=== PATIENT | male | born 1940 | race Caucasian/White ===

== ENCOUNTER 2016-10-11 09:57 | Inpatient (IN) | payer MEDICARE ==
[2016-10-11] MEDS ORDERED: IPRATROPIUM-ALBUTEROL 3 ML NEB INHALATION STA (10:02)
--- NOTE | 2016-10-11 10:07 | ED ---
General Adult HPI - General Stated complaint: Difficulty Breathing Time Seen by Provider: 10/11/16 10:00 Source: RN notes reviewed - History of Present Illness Initial comments: This is a 75-year-old male who presents emergency Department complaining of shortness of breath since last night. Patient states he barely slept all his eye because of difficulty breathing. Patient states he got worse throughout the night as well. Patient denies any fever or chills. Patient denies chest pain or palpitation. Patient denies any recent cough. Patient denies smoking. Patient denies any headache patient denies numbness weakness. Patient denies any lightheadedness dizziness or near syncopal episode. Patient denies any fluid chelation legs or calf pain. Patient denies any abdominal pain patient denies nausea vomiting diarrhea. Patient has a history of heart failure and diabetes. - Related Data Home Medications Medication Instructions Recorded Confirmed hydrALAZINE HCL [Apresoline] 50 mg PO TID 04/26/15 10/11/16 Insulin Glargine [Lantus] 35 unit SQ HS 01/24/16 10/11/16 Atorvastatin [Lipitor] 20 mg PO HS 08/28/16 10/11/16 [id number]-[id number]-Codeine 1 cap PO BID PRN 08/28/16 10/11/16 [Fiorinal w/Cod 18-782-35-30MG] Cholecalciferol [Vitamin D3] 1,000 unit PO DAILY 08/28/16 10/11/16 Metoprolol Tartrate [Lopressor] 50 mg PO BID 08/28/16 10/11/16 Albuterol Nebulized [Ventolin 2.5 mg INHALATION RT-QID 10/11/16 10/11/16 Nebulized] Ferrous Sulfate [Feosol] 325 mg PO W/SUPPER 10/11/16 10/11/16 LORazepam [Ativan] 0.5 mg PO HS PRN 10/11/16 10/11/16 Warfarin [Coumadin] 2.5 mg PO SUMOWETHFRSA 10/11/16 10/11/16 Warfarin [Coumadin] 5 mg PO TU 10/11/16 10/11/16 Previous Rx's Medication Instructions Recorded Gabapentin [Neurontin] 100 mg PO TID cap 09/05/16 Insulin Aspart [NovoLOG] 9 unit SQ AC-TID #0 09/05/16 Pantoprazole [Protonix] 40 mg PO AC-BRKFST tablet. 09/05/16 oxyCODONE HCL/ACETAMINOPHEN 1 tab PO Q6HR PRN #20 tab 09/05/16 [Percocet 5-325 mg] Allergies Allergy/AdvReac Type Severity Reaction Status Date / Time Penicillins Allergy Rash/Hives Verified 10/11/16 11:32 Review of Systems ROS Statement: Those systems with pertinent positive or pertinent negative responses have been documented in the HPI. ROS Other: All systems not noted in ROS Statement are negative. Past Medical History Past Medical History: Cancer, Heart Failure, CVA/TIA, Diabetes Mellitus, Hyperlipidemia, Hypertension, Osteoarthritis (OA) Additional Past Medical History / Comment(s): PROSTATE CANCER, EDEMA RIGHT LEG, USES A WHEELCHAIR History of Any Multi-Drug Resistant Organisms: None Reported Past Surgical History: Appendectomy, Back Surgery Additional Past Surgical History / Comment(s): kidney biopsy, CATARACT RIGHT EYE Past Anesthesia/Blood Transfusion Reactions: No Reported Reaction Past Psychological History: No Psychological Hx Reported Smoking Status: Former smoker Past Alcohol Use History: None Reported Past Drug Use History: None Reported - Past Family History Mother Family Medical History: Diabetes Mellitus Father Family Medical History: Diabetes Mellitus General Exam - General Exam Comments Initial Comments: GENERAL: Patient is well-developed and well-nourished. Patient is nontoxic and well- hydrated and is in no acute distress. ENT: Neck is soft and supple. No significant lymphadenopathy is noted. Oropharynx is clear. Moist mucous membranes. Neck has full range of motion without eliciting any pain. EYES: The sclera were anicteric and conjunctiva were pink and moist. Extraocular movements were intact and pupils were equal round and reactive to light. Eyelids were unremarkable. PULMONARY: Patient has expiratory wheezing and significantly diminished breath sounds. CARDIOVASCULAR: There is a regular rate and rhythm without any murmurs gallops or rubs. ABDOMEN: Soft and nontender with normal bowel sounds. No palpable organomegaly was noted. There is no palpable pulsatile mass. SKIN: Skin is clear with no lesions or rashes and otherwise unremarkable. NEUROLOGIC: Patient is alert and oriented x3. Cranial nerves II through XII are grossly intact. Motor and sensory are also intact. Normal speech, volume and content. Symmetrical smile. MUSCULOSKELETAL: Normal extremities with adequate strength and full range of motion. No lower extremity swelling or edema. No calf tenderness. LYMPHATICS: No significant lymphadenopathy is noted PSYCHIATRIC: Normal psychiatric evaluation. Course Vital Signs 10/11/16 10/11/16 10/11/16 09:59 10:09 11:01 Temperature 98.1 F Pulse Rate 70 72 Respiratory 22 22 Rate Blood Pressure 228/94 O2 Sat by Pulse 100 Oximetry 10/11/16 10/11/16 10/11/16 11:21 11:43 12:08 Temperature Pulse Rate 68 68 69 Respiratory 18 16 Rate Blood Pressure 219/88 204/89 O2 Sat by Pulse 100 95 Oximetry 10/11/16 10/11/16 12:40 12:44 Temperature Pulse Rate 67 Respiratory 22 Rate Blood Pressure 188/82 O2 Sat by Pulse 93 L Oximetry Medical Decision Making - Medical Decision Making EKG shows atrial fibrillation at 66 bpm QRS is 98 QT interval is 444 QTC is 465. Patient's EKG is compared to an old EKG I see no acute abnormalities. Chest x-ray shows acute pulmonary edema. She was placed on BiPAP as soon as he arrived. Gave the patient Lasix nitro paste and Vasotec. I spoke with Dr. Wright. I wrote admitting orders to continue the Lasix and nitro paste on the floor. I consult cardiology. After patient received his medications I reevaluated him he did state he was feeling better at this time. - Lab Data Result diagrams: 10/11/16 11:37 10/11/16 11:37 Lab Results 10/11/16 10/11/16 10/11/16 Range/Units 11:37 11:37 11:37 WBC 5.8 (3.8-10.6) k/uL RBC 3.44 L (4.30-5.90) m/uL Hgb 9.8 L (13.0-17.5) gm/dL Hct 33.1 L (39.0-53.0) % MCV 96.1 (80.0-100.0) fL MCH 28.5 (25.0-35.0) pg MCHC 29.7 L (31.0-37.0) g/dL RDW 18.0 H (11.5-15.5) % Plt Count 231 (150-450) k/uL Neutrophils % 81 % Lymphocytes % 13 % Monocytes % 4 % Eosinophils % 1 % Basophils % 0 % Neutrophils # 4.7 (1.3-7.7) k/uL Lymphocytes # 0.7 L (1.0-4.8) k/uL Monocytes # 0.2 (0-1.0) k/uL Eosinophils # 0.0 (0-0.7) k/uL Basophils # 0.0 (0-0.2) k/uL Hypochromasia Marked Poikilocytosis Slight Anisocytosis Slight Macrocytosis Slight PT (9.0-12.0) sec INR (<1.1) APTT (22.0-30.0) sec Sodium 148 H (137-145) mmol/L Potassium 4.4 (3.5-5.1) mmol/L Chloride 111 H (98-107) mmol/L Carbon Dioxide 23 (22-30) mmol/L Anion Gap 14 mmol/L BUN 27 H (9-20) mg/dL Creatinine 1.31 H (0.66-1.25) mg/dL Est GFR (MDRD) Af Amer >60 (>60 ml/min/1.73 sqM) Est GFR (MDRD) Non-Af 53 (>60 ml/min/1.73 sqM) Glucose 181 H (74-99) mg/dL Calcium 8.7 (8.4-10.2) mg/dL Magnesium 1.8 (1.6-2.3) mg/dL Total Bilirubin 1.8 H (0.2-1.3) mg/dL AST 19 (17-59) U/L ALT 28 (21-72) U/L Alkaline Phosphatase 144 H (38-126) U/L Total Creatine Kinase 42 L (55-170) U/L CK-MB (CK-2) 2.2 (0.0-2.4) ng/mL CK-MB (CK-2) Rel Index 5.2 Troponin I 0.018 (0.000-0.034) ng/mL NT-Pro-B Natriuret Pep pg/mL Total Protein 6.6 (6.3-8.2) g/dL Albumin 3.2 L (3.5-5.0) g/dL 10/11/16 10/11/16 Range/Units 11:37 11:37 WBC (3.8-10.6) k/uL RBC (4.30-5.90) m/uL Hgb (13.0-17.5) gm/dL Hct (39.0-53.0) % MCV (80.0-100.0) fL MCH (25.0-35.0) pg MCHC (31.0-37.0) g/dL RDW (11.5-15.5) % Plt Count (150-450) k/uL Neutrophils % % Lymphocytes % % Monocytes % % Eosinophils % % Basophils % % Neutrophils # (1.3-7.7) k/uL Lymphocytes # (1.0-4.8) k/uL Monocytes # (0-1.0) k/uL Eosinophils # (0-0.7) k/uL Basophils # (0-0.2) k/uL Hypochromasia Poikilocytosis Anisocytosis Macrocytosis PT 34.6 H (9.0-12.0) sec INR 3.6 (<1.1) APTT 35.3 H (22.0-30.0) sec Sodium (137-145) mmol/L Potassium (3.5-5.1) mmol/L Chloride (98-107) mmol/L Carbon Dioxide (22-30) mmol/L Anion Gap mmol/L BUN (9-20) mg/dL Creatinine (0.66-1.25) mg/dL Est GFR (MDRD) Af Amer (>60 ml/min/1.73 sqM) Est GFR (MDRD) Non-Af (>60 ml/min/1.73 sqM) Glucose (74-99) mg/dL Calcium (8.4-10.2) mg/dL Magnesium (1.6-2.3) mg/dL Total Bilirubin (0.2-1.3) mg/dL AST (17-59) U/L ALT (21-72) U/L Alkaline Phosphatase (38-126) U/L Total Creatine Kinase (55-170) U/L CK-MB (CK-2) (0.0-2.4) ng/mL CK-MB (CK-2) Rel Index Troponin I (0.000-0.034) ng/mL NT-Pro-B Natriuret Pep 84707 pg/mL Total Protein (6.3-8.2) g/dL Albumin (3.5-5.0) g/dL Critical Care Time Critical Care Time: Yes Total Critical Care Time: 35 Disposition Clinical Impression: Acute pulmonary edema Disposition: ADMITTED IP TO THIS HOSP Time of Disposition: 13:04
[2016-10-11] MEDS ORDERED: ENALAPRILAT 1.25 MG/ML 1 ML VIAL IVP STA (10:09)
[2016-10-11] MEDS ORDERED: NITROGLYCERIN OINT 1 INCH/GM PACKET TOPICAL STA (10:22)
[2016-10-11 11:56] LABS: Anisocytosis Slight; Basophils % (A) 0 %; CH 27.7; Eosinophils % (A) 1 %; HCT 33.1 % (39.0-53.0); HGB 9.8 gm/dL (13.0-17.5); Hypochromasia Marked; Luc # (Auto) 0.07; Luc % (Auto) 1; Lymphocytes # (A) 0.7 k/uL (1.0-4.8); Lymphocytes % (A) 13 %; MCH 28.5 pg (25.0-35.0); MCHC 29.7 g/dL (31.0-37.0); MCV 96.1 fL (80.0-100.0); Macrocytosis Slight; Mean Platelet Volume 7.8; Monocytes # (A) 0.2 k/uL (0-1.0); Monocytes % (A) 4 %; Neutrophils # (A) 4.7 k/uL (1.3-7.7); Neutrophils % (A) 81 %; Poikilocytosis Slight; RBC 3.44 m/uL (4.30-5.90); WBC 5.8 k/uL (3.8-10.6); WBC (Perox) 5.92
[2016-10-11 12:06] LABS: INR 3.6 (<1.1); Partial Thromboplastin Time 35.3 sec (22.0-30.0); Prothrombin Time 34.6 sec (9.0-12.0)
[2016-10-11 12:11] LABS: ALT 28 U/L (21-72); AST 19 U/L (17-59); Alkaline Phosphatase 144 U/L (38-126); Anion Gap 14 mmol/L; Blood Urea Nitrogen 27 mg/dL (9-20); Calcium 8.7 mg/dL (8.4-10.2); Carbon Dioxide 23 mmol/L (22-30); Chloride 111 mmol/L (98-107); Glucose 181 mg/dL (74-99); Magnesium 1.8 mg/dL (1.6-2.3); Non-African American GFR(MDRD) 53 (>60 ml/min/1.73 sqM); Potassium 4.4 mmol/L (3.5-5.1); Sodium 148 mmol/L (137-145); Total Bilirubin 1.8 mg/dL (0.2-1.3); Total Protein 6.6 g/dL (6.3-8.2)
[2016-10-11] MEDS ORDERED: GABAPENTIN 100 MG CAP PO STA (12:20)
--- NOTE | 2016-10-11 12:20 | XR ---
EXAMINATION TYPE: XR chest 1V portable DATE OF EXAM: 10/11/2016 12:13 PM HISTORY: Difficulty breathing. REFERENCE: Previous study dated 08/30/2016. FINDINGS: Heart is mildly enlarged. There is vascular redistribution and mild interstitial change. Pl eural spaces appear clear. IMPRESSION: FINDINGS MOST CONSISTENT WITH MILD CONGESTIVE HEART FAILURE AND PULMONARY EDEMA.
[2016-10-11 12:26] LABS: Creatine Kinase MB 2.2 ng/mL (0.0-2.4); Troponin I 0.018 ng/mL (0.000-0.034)
[2016-10-11] MEDS ORDERED: FUROSEMIDE 10 MG/ML 10 ML VIAL IV STA (12:54)
[2016-10-11] MEDS ORDERED: ALPRAZolam 0.25 MG TAB PO STA (16:04)
[2016-10-11] MEDS: FUROSEMIDE 10 MG/ML 4 ML VIAL IV SCH ×2 (16:16→23:15)
[2016-10-11 16:56] LABS: Glucose,Whole Blood 183 mg/dL (75-99)
[2016-10-11] MEDS: INSULIN LISPRO (humaLOG) 300 UNIT/3 ML VIAL SQ SCH ×2 (17:14→22:35)
[2016-10-11] MEDS: NITROGLYCERIN OINT 1 INCH/GM PACKET TOPICAL SCH ×2 (17:17→22:35)
[2016-10-11 21:32] LABS: Glucose,Whole Blood 151 mg/dL (75-99)
[2016-10-11] MEDS ORDERED: [UNRECOGNIZED DRUG - OTHER] PO PRN (21:32)
[2016-10-11] MEDS: GABAPENTIN 100 MG CAP PO SCH (22:35)
[2016-10-11] MEDS: ATORVASTATIN 20 MG TAB PO SCH (22:35)
[2016-10-11] MEDS: METOPROLOL TARTRATE 50 MG TAB PO SCH (22:35)
[2016-10-11] MEDS: hydrALAZINE HCL 50 MG TAB PO SCH (22:35)
[2016-10-12 00:17] LABS: Hemoglobin A1C 5.8 % (4.2-6.1)
[2016-10-12 06:11] LABS: Glucose,Whole Blood 136 mg/dL (75-99)
[2016-10-12 06:49] LABS: INR 3.2 (<1.1); Prothrombin Time 31.4 sec (9.0-12.0)
[2016-10-12] MEDS: PANTOPRAZOLE 40 MG TABLET PO SCH (06:54)
[2016-10-12] MEDS: INSULIN GLARGINE 100 UNIT/ML 10 ML VIAL SQ SCH ×2 (06:54→21:40)
[2016-10-12] MEDS: INSULIN LISPRO (humaLOG) 300 UNIT/3 ML VIAL SQ SCH ×7 (06:54→21:41)
[2016-10-12] MEDS: oxyCODONE-APAP 5-325MG 1 EACH TAB PO PRN (08:20)
[2016-10-12] MEDS: GABAPENTIN 100 MG CAP PO SCH ×3 (08:21→21:40)
[2016-10-12] MEDS: NITROGLYCERIN OINT 1 INCH/GM PACKET TOPICAL SCH ×4 (08:22→21:41)
[2016-10-12] MEDS: METOPROLOL TARTRATE 50 MG TAB PO SCH ×2 (08:22→21:40)
[2016-10-12] MEDS: hydrALAZINE HCL 50 MG TAB PO SCH ×3 (08:22→21:40)
[2016-10-12] MEDS: FUROSEMIDE 10 MG/ML 4 ML VIAL IV SCH ×2 (08:22→15:21)
[2016-10-12] MEDS: ALBUTEROL NEBULIZED 2.5 MG/3 ML INHALATION SCH ×4 (08:52→20:50)
[2016-10-12 10:52] VITALS: BMI 38.9
[2016-10-12 12:10] LABS: Glucose,Whole Blood 151 mg/dL (75-99)
[2016-10-12] MEDS: CHOLECALCIFEROL 1,000 UNIT TAB PO SCH (12:23)
--- NOTE | 2016-10-12 12:24 | HP ---
DATE OF ADMISSION: 10/11/2016 CHIEF COMPLAINT: Shortness of breath. HISTORY OF PRESENT ILLNESS: This 75 -year-old gentleman with past medical history of CHF, CVA, TIA, diabetes mellitus, hypertension, hyperlipidemia, GERD, history of prostate cancer, being followed by Dr. Fitzpatrick in the outpatient setting complaining of shortness of breath. The patient had shortness of breath for the past several days including last night. The patient unable to sleep. The patient unable to lie down flat. The patient orthopnea, because of increasing shortness of breath and other difficulties, the patient came to [facility] and was admitted to the hospital for further evaluation and treatment. A chest x-ray was done at the time of admission showed congestive heart failure and pulmonary edema. The patient was started on IV Lasix and admitted for further evaluation and treatment. There is no history of fever, rigors or chills. No history of headache, loss of consciousness or seizures. The previous 2D echo, which was done on 09/05/2016 showed ejection fraction 55% to 60% and moderate dilated LA, mild aortic regurgitation, mild aortic sclerosis also. No chest pain or palpitation. No fever. The patient was also admitted recently with cellulitis of the right lower extremity as well as well as skin necrosis and other multiple medical issues also. PAST MEDICAL HISTORY: history of CHF, history of CVA, TIA, diabetes mellitus type 2, hypertension, hyperlipidemia, DJD. Medications prior to admission include home medications are: 1. Oxycodone one tablet q6h p.r.n. 2. Apresoline 50 mg t.i.d. 3. Coumadin 5 mg p.o. 4. 2.5 mg Sunday, Sunday, Sunday, , Sunday, Sunday. 5. Protonix 40 mg a.c. breakfast. 6. Lopressor 50 mg p.o. b.i.d. 7. Ativan 0.5 mg q.h.s. p.r.n. 8. Lantus 35 units subcu q.h.s. 9. Novolog subcu a.c. t.i.d. 10. Neurontin 100 mg p.o. t.i.d. 11. Iron sulfate 325 mg with supper. 12. Vitamin D3 1000 daily. 13.Codeine codeine caffeine 1 capsule b.i.d. p.r.n. 14. Lipitor 20 mg at bedtime. 15. Ventolin HFA 2.5 q.i.d. ALLERGIES: PENICILLIN. FAMILY HISTORY: History of diabetes in the family. SOCIAL HISTORY: Previous history of smoking. No history of alcohol intake. REVIEW OF SYSTEMS: ENT: Diminished vision. Diminished hearing. CARDIOVASCULAR: As mentioned earlier. RESPIRATORY: As mentioned earlier. GI: No nausea or vomiting. : No dysuria. Nervous system: No focal deficits. ALLERGY/IMMUNOLOGY: no asthma or hayfever. MUSCULOSKELETAL: As mentioned earlier. HEMATOLOGY/ONCOLOGY: No history of anemia. ENDOCRINE: As mentioned earlier. RHEUMATOLOGY: Negative. DERMATOLOGY: As mentioned earlier. PSYCHIATRY: As mentioned earlier. PHYSICAL EXAMINATION: GENERAL: The patient is alert and oriented times three. VITAL SIGNS: Pulse is 66, blood pressure 179/76, respiratory rate 18, temperature normal, pulse ox 98% on 4 liters. HEENT: Conjunctivae normal. Oral mucosa moist. NECK: No jugular venous distention. No carotid bruit. No lymph node enlargement. CARDIOVASCULAR: S1, S2 muffled. RESPIRATORY: Breath sounds diminished at the bases. Bilateral scattered rhonchi and crackles. ABDOMEN: Soft, obese, nontender. No mass palpable. Legs: No edema. No swelling. Thickened skin and cellulitis also present. CENTRAL NERVOUS SYSTEM: Higher functions as mentioned earlier. Moves all four limbs. No focal motor or sensory deficits. LYMPHATICS: No lymph nodes palpable in the neck, axillae or groin. SKIN: No ulcer, rash or bleeding. LABS: At this time shows WBC 5.6, hemoglobin 9.8. Otherwise INR 3.6. Sodium 148, creatinine 1.31, glucose noted. ASSESSMENT: 1. Congestive heart failure exacerbation, acute on chronic diastolic dysfunction, ejection fraction 55% to 60%. 2. Chronic kidney disease, stage. 3. Coumadin coagulopathy. 4. Anemia, normocytic, anemia of chronic disease. 5. Mild hypoalbuminemia. 6. Obesity, with a body mass index of 42.4. 7. History of congestive heart failure. 8. History of cerebrovascular accident and transient ischemic attack. 9. Type 2 diabetes mellitus. 10. Hypertension. 11. Hyperlipidemia. 12. History of degenerative joint disease. 13. History of prostate cancer. 14. Chronic hypoxic respiratory failure, on home oxygen 2 liters nasal cannula. 15. Appendectomy. 16. Back surgery. 17. Degenerative joint disease. 18. Remote history of nicotine dependence. 19. FULL CODE. RECOMMENDATIONS AND DISCUSSION: In this 75-year-old gentleman who presented with multiple complex medical issues, we will monitor the patient closely, continue the current medications, continue with symptomatic treatment. We will initiate Lasix 40 mg IV q.8. Monitor fluid and electrolytes balance closely. 2-D echo has been noted. Cardiology has been consulted. Resume the home medications. Repeat labs will be ordered. Prognosis is guarded because of multiple complex medical issues. No added salt to be continued. Discussed with the patient, understands and agrees. Medications reconciliation also performed. We will hold the Coumadin because of the Coumadin coagulopathy at this time and further recommendations to follow. STEPHANIE
[2016-10-12] MEDS: ALPRAZolam 0.25 MG TAB PO PRN (15:21)
[2016-10-12] MEDS: FERROUS SULFATE 325 MG TAB PO SCH (15:22)
[2016-10-12 17:05] LABS: Glucose,Whole Blood 136 mg/dL (75-99)
[2016-10-12 20:31] LABS: Glucose,Whole Blood 150 mg/dL (75-99)
[2016-10-12] MEDS: ATORVASTATIN 20 MG TAB PO SCH (21:40)
[2016-10-12] MEDS: LORazepam 0.5 MG TAB PO PRN (23:43)
[2016-10-13] MEDS: FUROSEMIDE 10 MG/ML 4 ML VIAL IV SCH ×2 (00:09→09:29)
[2016-10-13 06:12] LABS: Glucose,Whole Blood 204 mg/dL (75-99)
[2016-10-13 06:27] LABS: INR 2.7 (<1.1); Prothrombin Time 26.5 sec (9.0-12.0)
[2016-10-13 06:33] LABS: Anisocytosis Slight; Basophils % (A) 0 %; CH 27.6; CHCM 27.8; Eosinophils # (A) 0.2 k/uL (0-0.7); Eosinophils % (A) 2 %; HCT 31.7 % (39.0-53.0); HDW 3.24; HGB 9.1 gm/dL (13.0-17.5); Hypochromasia Marked; Luc # (Auto) 0.12; Luc % (Auto) 2; Lymphocytes # (A) 1.1 k/uL (1.0-4.8); Lymphocytes % (A) 17 %; MCH 28.6 pg (25.0-35.0); MCHC 28.6 g/dL (31.0-37.0); Macrocytosis Moderate; Mean Platelet Volume 6.9; Monocytes # (A) 0.4 k/uL (0-1.0); Monocytes % (A) 6 %; Neutrophils # (A) 4.7 k/uL (1.3-7.7); Neutrophils % (A) 73 %; RBC 3.17 m/uL (4.30-5.90); RDW 18.4 % (11.5-15.5); WBC 6.4 k/uL (3.8-10.6); WBC (Perox) 6.78
[2016-10-13 06:37] LABS: Calcium 8.7 mg/dL (8.4-10.2); Potassium 4.5 mmol/L (3.5-5.1)
[2016-10-13] MEDS: PANTOPRAZOLE 40 MG TABLET PO SCH (06:45)
[2016-10-13] MEDS: INSULIN LISPRO (humaLOG) 300 UNIT/3 ML VIAL SQ SCH ×7 (06:46→21:08)
[2016-10-13] MEDS: ALBUTEROL NEBULIZED 2.5 MG/3 ML INHALATION SCH ×4 (07:57→20:43)
[2016-10-13] MEDS: GABAPENTIN 100 MG CAP PO SCH ×3 (09:28→21:08)
[2016-10-13] MEDS: hydrALAZINE HCL 50 MG TAB PO SCH ×3 (09:28→21:09)
[2016-10-13] MEDS: METOPROLOL TARTRATE 50 MG TAB PO SCH ×2 (09:29→21:09)
[2016-10-13] MEDS: NITROGLYCERIN OINT 1 INCH/GM PACKET TOPICAL SCH ×4 (09:29→21:09)
[2016-10-13 10:24] LABS: Glucose,Whole Blood 189 mg/dL (75-99)
[2016-10-13] MEDS: ALPRAZolam 0.25 MG TAB PO PRN (10:25)
--- NOTE | 2016-10-13 10:32 | PN ---
DATE OF SERVICE: 10/12/2016 This 75-year-old gentleman who was admitted with CHF acute exacerbation is being closely monitored at this time. No chest pain or palpitation. No fever. Breathing is slightly easier according to him. Cardiology is following the patient. On exam, alert and oriented x3. Pulse 64, blood pressure 109/47, respirations 18, temperature 97.7, pulse ox 97% on 3 L. HEENT: Conjunctivae normal. NECK: No jugular venous distention. CARDIOVASCULAR: S1 and S2, muffled. RESPIRATORY: Breath sounds diminished at the bases. Bilateral scattered rhonchi and crackles. ABDOMEN: Soft, nontender. LEGS: No edema, no swelling. NERVOUS SYSTEM: No focal deficits. Labs are INR 3.2. Hemoglobin is 9.8. Glucose 151. ASSESSMENT: 1. Congestive heart failure acute exacerbation with acute on chronic diastolic dysfunction, ejection 55% to 60%. 2. Chronic kidney disease, stage II. 3. Coumadin coagulopathy. 4. Anemia of normocytic anemia of chronic disease. 5. Mild hypoalbuminemia. 6. Obesity, body mass index 42.4. 7. History of congestive heart failure. 8. History of cerebrovascular accident, transient ischemic attack. 9. Diabetes mellitus type 2. 10. Hypertension. 11. Hyperlipidemia. 12. History of degenerative joint disease. 13. History of prostate cancer. 14. Chronic hypoxic respiratory failure, on home oxygen nasal cannula. 15. Appendectomy. 16. History of back surgery. 17. History of degenerative joint disease. 18. Remote history of nicotine dependence. 19. FULL CODE. RECOMMENDATIONS AND DISCUSSION: Recommend to continue current medications. Continue with monitoring and symptomatic treatment. Otherwise, continue with diuretics. Will monitor creatinine and labs closely. Guarded prognosis because of multiple complex medical issues. Further recommendations to follow.
[2016-10-13 11:47] LABS: Glucose,Whole Blood 191 mg/dL (75-99)
[2016-10-13] MEDS: CHOLECALCIFEROL 1,000 UNIT TAB PO SCH (13:24)
[2016-10-13] MEDS: oxyCODONE-APAP 5-325MG 1 EACH TAB PO PRN (15:48)
[2016-10-13] MEDS: FERROUS SULFATE 325 MG TAB PO SCH (15:50)
[2016-10-13 16:40] LABS: Glucose,Whole Blood 263 mg/dL (75-99)
--- NOTE | 2016-10-13 17:53 | P.CONS ---
History of Present Illness - Reason for Consult Consult date: 10/13/16 - Chief Complaint Shortness of breath - History of Present Illness Pleasant 75-year-old male who lives independently relates he came to the emergency center because of increasing shortness of breath. He relates over the few days before he was admitted he was having increasing difficulties with orthopnea and dyspnea on exertion. He gets appointed time or he was short of breath at rest despite using his oxygen therapy. Because of this he presented emergency room where he was on evidence of significant congestive heart failure. With diuretic therapy he is not feeling somewhat better. Infectious diseases consultation request regarding the ulceration to the left heel as well as to the right foot great toe. The patient relates that he recently had an injury to the right pretibial area. He had a cellulitis of the developed heat and is on a file cabinet. That site is doing better but continues to have difficulties. Relates that he saw Dr. Muller was given some compression stockings. They apparently were closed toe and tight. He believes that this is part of how he developed the ulcerations to the right foot great toe and left heel. Does not recall significant trauma to that left heel. Review of Systems Patient denies fevers, chills or rigors. Denies sputum production. HEENT:Denies headache or acute visual change. Denies sinus or mouth discomforts. Denies neck stiffness or pain. Denies significant oral cavity pain. Denies difficulty on swallowing. Lungs: Denies significant shortness of breath, cough, sputum production, or hemoptysis. Cardiovascular: Denies significant shortness of breath, chest pain, chest wall pain, orthopnea, dyspnea on exertion, syncope Gastrointestinal:Denies nausea, vomiting, diarrhea, constipation, hematemesis, melena, hematochezia. No no significant change of bowel habit noticed. Musculoskeletal: denies significant myalgias or arthralgias. No new joint swelling. Denies new back pain. Skin: He has a lesion to the left heel and right toes. The prior ulcer on the right pretibial area is improved Neuro: Denies headache or visual change. Denies any new onset weakness or difficulty with ambulation. Denies falls or seizures. Psychiatric:Denies anxiety or depression. Endocrine: Has had fatigue and weight gain. Past Medical History Past Medical History: Cancer, Heart Failure, CVA/TIA, Diabetes Mellitus, Hyperlipidemia, Hypertension, Osteoarthritis (OA) Additional Past Medical History / Comment(s): PROSTATE CANCER-"IMPLANTS AND RADIATION TX FOR 8 WEEKS 5 DAYS A WEEK", EDEMA RIGHT LEG, USES A WHEELCHAIR"NO WT BEARING BUT ABLE TO SLIDE FROM BEG INTO HIS W/C", HOME 02 2 LITERS N/C, NEUROPATHY, SORES ON RT FOOT AND LT HEEL STATED "CLEANING WITH ALCOHOL AND KEPT DRY" History of Any Multi-Drug Resistant Organisms: None Reported Past Surgical History: Appendectomy, Back Surgery Additional Past Surgical History / Comment(s): kidney biopsy-"neg", abner cataracts Past Anesthesia/Blood Transfusion Reactions: No Reported Reaction Past Psychological History: No Psychological Hx Reported Additional Psychological History / Comment(s): pt lives in his own home,uses w/ c to get around. has visitng nurses.pt and family comes in to assist pt as well. He is single. Remote history of tobacco use. No current alcohol use. 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 No other international travel no illnesses during his service. No animal exposures Smoking Status: Former smoker Past Alcohol Use History: None Reported Additional Past Alcohol Use History / Comment(s): 1975 quit in [place] same year Past Drug Use History: None Reported - Past Family History Mother Family Medical History: Diabetes Mellitus Father Family Medical History: Diabetes Mellitus Medications and Allergies Home Medications and Allergies Comment(s): Current Medications Albuterol Sulfate (Ventolin Nebulized) 2.5 mg INHALATION RT-QID [facility] Last Admin: 10/13/16 16:14 Dose: 2.5 mg Alprazolam (Xanax) 0.25 mg PO Q8H PRN PRN Reason: Anxiety Stop: 10/14/16 11:01 Last Admin: 10/13/16 10:25 Dose: 0.25 mg Atorvastatin Calcium (Lipitor) 20 mg PO HS [facility] Last Admin: 10/12/16 21:40 Dose: 20 mg Cholecalciferol (Vitamin D3) 1,000 unit PO 1200 [facility] Last Admin: 10/13/16 13:24 Dose: 1,000 unit Ferrous Sulfate (Feosol) 325 mg PO W/SUPPER [facility] Last Admin: 10/13/16 15:50 Dose: 325 mg Furosemide (Lasix) 40 mg IV DAILY [facility] Gabapentin (Neurontin) 100 mg PO TID [facility] Last Admin: 10/13/16 15:49 Dose: 100 mg Hydralazine HCl (Apresoline) 50 mg PO TID [facility] Last Admin: 10/13/16 15:49 Dose: 50 mg Insulin Glargine (Lantus) 35 unit SQ [facility] Last Admin: 10/12/16 21:40 Dose: 35 unit Insulin Human Lispro (Humalog) 0 unit SQ [facility] PRN Reason: Protocol Last Admin: 10/13/16 16:40 Dose: 6 unit Insulin Human Lispro (Humalog) 9 unit SQ AC-TID [facility] Last Admin: 10/13/16 16:40 Dose: 9 unit Lorazepam (Ativan) 0.5 mg PO HS PRN PRN Reason: Anxiety Last Admin: 10/12/16 23:43 Dose: 0.5 mg Metoprolol Tartrate (Lopressor) 50 mg PO BID [facility] Last Admin: 10/13/16 09:29 Dose: 50 mg Nitroglycerin (Nitro-Bid Oint) 1 inch TOPICAL QID [facility] Last Admin: 10/13/16 15:50 Dose: Not Given Oxycodone/Acetaminophen (Percocet 5-325) 1 each PO Q6HR PRN PRN Reason: Pain Last Admin: 10/13/16 15:48 Dose: 1 each Pantoprazole Sodium (Protonix) 40 mg PO AC-BRKFST [facility] Last Admin: 10/13/16 06:45 Dose: 40 mg Home Medications Medication Instructions Recorded Confirmed Type hydrALAZINE HCL [Apresoline] 50 mg PO TID 04/26/15 10/11/16 History Insulin Glargine [Lantus] 35 unit SQ 01/24/16 10/11/16 History Atorvastatin [Lipitor] 20 mg PO HS 08/28/16 10/11/16 History Mcgjeoaisi-OFB-[id number]-Codeine 1 cap PO BID PRN 08/28/16 10/11/16 History [Fiorinal w/Cod [id number]] Cholecalciferol [Vitamin D3] 1,000 unit PO DAILY 08/28/16 10/11/16 History Metoprolol Tartrate [Lopressor] 50 mg PO BID 08/28/16 10/11/16 History Albuterol Nebulized [Ventolin 2.5 mg INHALATION RT-QID 10/11/16 10/11/16 History Nebulized] Ferrous Sulfate [Feosol] 325 mg PO W/SUPPER 10/11/16 10/11/16 History LORazepam [Ativan] 0.5 mg PO HS PRN 10/11/16 10/11/16 History Warfarin [Coumadin] 2.5 mg PO SUMOWETHFRSA 10/11/16 10/11/16 History Warfarin [Coumadin] 5 mg PO TU 10/11/16 10/11/16 History Allergies Allergy/AdvReac Type Severity Reaction Status Date / Time Penicillins Allergy Rash/Hives Verified 10/11/16 11:32 Physical Exam Vitals: Vital Signs Temp Pulse Pulse Resp BP Pulse Ox 10/13/16 16:30 72 10/13/16 16:14 72 10/13/16 15:30 98.7 F 64 18 101/62 98 10/13/16 11:37 76 10/13/16 11:26 72 10/13/16 11:05 67 18 127/62 98 10/13/16 08:09 76 10/13/16 08:05 72 18 132/47 96 10/13/16 07:57 78 96 10/13/16 04:00 97.1 F L 84 16 144/67 92 L 10/13/16 00:00 97.2 F L 83 18 131/65 95 10/12/16 22:15 72 10/12/16 20:50 72 10/12/16 20:00 97.4 F L 78 17 135/68 100 Intake and Output 10/13/16 10/13/16 10/13/16 06:59 14:59 22:59 Intake Total 240 236 Output Total 650 850 Balance -410 -850 236 Intake: Oral 240 236 Output: Urine 650 850 Other: Voiding Method Urinal Urinal Urinal # Voids 1 Weight 117.5 kg Pleasant 75-year-old gentleman who relates he feels considerably better than admission. He is much less short of breath. Is able to lay much more flat with less shortness of breath. HEENT: Anicteric conjunctiva are pink and moist nasal mucosa grossly intact without significant lesions, there is no thrush. Poor dentition Neck: The neck is supple without significant lymphadenopathy or thyromegaly. Lungs: Symmetrical air entry with evidence of basilar crackles. No bronchial sounds no changes of egophony or tactile fremitus Heart: Irregular with an audible S1 and S2 no S3 soft S4 no distinct murmur click or rub PMI is nondisplaced. Abdomen: Obese Positive bowel sounds soft and nontender without palpable masses or organomegaly. There was no guarding or rebound. Extremities: Upper extremities have intact pulses and are symmetric. Some ecchymosis from IV site. The lower extremities have evidence of a marked improved edema. There is some wrinkling that is noted. On the left heel medial there is evidence of the 2.5 x 2 cm eschar with minimal surrounding erythema. The right great toe and second toe evidence of distal eschar formation also. There is no drainage or purulence is seen around the eschar in these areas. There is some mild tenderness only. The peripheral pulses are palpable. There is some swelling still to the feet and dry skin. Neuro: Awake alert oriented to person place and time. There are no acute new gross focal sensory motor deficits. Decreased sensation to bilateral feet as noted Results CBC & Chem 7: 10/13/16 05:59 10/13/16 05:59 Labs: Abnormal Lab Results - Last 24 Hours (Table) 10/12/16 10/13/16 10/13/16 Range/Units 20:30 05:59 05:59 RBC 3.17 L (4.30-5.90) m/uL Hgb 9.1 L (13.0-17.5) gm/dL Hct 31.7 L (39.0-53.0) % MCHC 28.6 L (31.0-37.0) g/dL RDW 18.4 H (11.5-15.5) % PT 26.5 H (9.0-12.0) sec Sodium (137-145) mmol/L Chloride (98-107) mmol/L BUN (9-20) mg/dL Creatinine (0.66-1.25) mg/dL Glucose (74-99) mg/dL POC Glucose (mg/dL) 150 H (75-99) mg/dL 10/13/16 10/13/16 10/13/16 Range/Units 05:59 06:11 10:16 RBC (4.30-5.90) m/uL Hgb (13.0-17.5) gm/dL Hct (39.0-53.0) % MCHC (31.0-37.0) g/dL RDW (11.5-15.5) % PT (9.0-12.0) sec Sodium 147 H (137-145) mmol/L Chloride 108 H (98-107) mmol/L BUN 36 H (9-20) mg/dL Creatinine 2.20 H (0.66-1.25) mg/dL Glucose 208 H (74-99) mg/dL POC Glucose (mg/dL) 204 H 189 H (75-99) mg/dL 10/13/16 10/13/16 Range/Units 11:41 16:37 RBC (4.30-5.90) m/uL Hgb (13.0-17.5) gm/dL Hct (39.0-53.0) % MCHC (31.0-37.0) g/dL RDW (11.5-15.5) % PT (9.0-12.0) sec Sodium (137-145) mmol/L Chloride (98-107) mmol/L BUN (9-20) mg/dL Creatinine (0.66-1.25) mg/dL Glucose (74-99) mg/dL POC Glucose (mg/dL) 191 H 263 H (75-99) mg/dL Laboratory Results WBC 6.4 k/uL (3.8-10.6) 10/13/16 05:59 RBC 3.17 m/uL (4.30-5.90) L 10/13/16 05:59 Hgb 9.1 gm/dL (13.0-17.5) L 10/13/16 05:59 Hct 31.7 % (39.0-53.0) L 10/13/16 05:59 MCV 100.0 fL (80.0-100.0) 10/13/16 05:59 MCH 28.6 pg (25.0-35.0) 10/13/16 05:59 MCHC 28.6 g/dL (31.0-37.0) L 10/13/16 05:59 RDW 18.4 % (11.5-15.5) H 10/13/16 05:59 Plt Count 206 k/uL (150-450) 10/13/16 05:59 Neutrophils % 73 % 10/13/16 05:59 Lymphocytes % 17 % 10/13/16 05:59 Monocytes % 6 % 10/13/16 05:59 Eosinophils % 2 % 10/13/16 05:59 Basophils % 0 % 10/13/16 05:59 Neutrophils # 4.7 k/uL (1.3-7.7) 10/13/16 05:59 Lymphocytes # 1.1 k/uL (1.0-4.8) 10/13/16 05:59 Monocytes # 0.4 k/uL (0-1.0) 10/13/16 05:59 Eosinophils # 0.2 k/uL (0-0.7) 10/13/16 05:59 Basophils # 0.0 k/uL (0-0.2) 10/13/16 05:59 Hypochromasia Marked 10/13/16 05:59 Poikilocytosis Slight 10/11/16 11:37 Anisocytosis Slight 10/13/16 05:59 Macrocytosis Moderate 10/13/16 05:59 PT 26.5 sec (9.0-12.0) H 10/13/16 05:59 INR 2.7 (<1.1) 10/13/16 05:59 APTT 35.3 sec (22.0-30.0) H 10/11/16 11:37 Sodium 147 mmol/L (137-145) H 10/13/16 05:59 Potassium 4.5 mmol/L (3.5-5.1) 10/13/16 05:59 Chloride 108 mmol/L (98-107) H 10/13/16 05:59 Carbon Dioxide 27 mmol/L (22-30) 10/13/16 05:59 Anion Gap 12 mmol/L 10/13/16 05:59 BUN 36 mg/dL (9-20) H 10/13/16 05:59 Creatinine 2.20 mg/dL (0.66-1.25) H 10/13/16 05:59 Est GFR (MDRD) Af Amer 35 (>60 ml/min/1.73 sqM) 10/13/16 05:59 Est GFR (MDRD) Non-Af 29 (>60 ml/min/1.73 sqM) 10/13/16 05:59 Glucose 208 mg/dL (74-99) H 10/13/16 05:59 POC Glucose (mg/dL) 263 mg/dL (75-99) H 10/13/16 16:37 POC Glu [employer] Supervisor ID Serena Gray 10/13/16 16:[address] Glu mg/dL 120 mg/dL 10/11/16 11:37 Hemoglobin A1c 5.8 % (4.2-6.1) 10/11/16 11:37 Calcium 8.7 mg/dL (8.4-10.2) 10/13/16 05:59 Magnesium 1.8 mg/dL (1.6-2.3) 10/11/16 11:37 Total Bilirubin 1.8 mg/dL (0.2-1.3) H 10/11/16 11:37 AST 19 U/L (17-59) 10/11/16 11:37 ALT 28 U/L (21-72) 10/11/16 11:37 Alkaline Phosphatase 144 U/L (38-126) H 10/11/16 11:37 Total Creatine Kinase 42 U/L (55-170) L 10/11/16 11:37 CK-MB (CK-2) 2.2 ng/mL (0.0-2.4) 10/11/16 11:37 CK-MB (CK-2) Rel Index 5.2 10/11/16 11:37 Troponin I 0.018 ng/mL (0.000-0.034) 10/11/16 11:37 NT-Pro-B Natriuret Pep 33672 pg/mL 10/11/16 11:37 Total Protein 6.6 g/dL (6.3-8.2) 10/11/16 11:37 Albumin 3.2 g/dL (3.5-5.0) L 10/11/16 11:37 Assessment and Plan (1) Acute pulmonary edema Status: Acute (2) Subtherapeutic international normalized ratio (INR) Status: Acute (3) Pressure ulcer, heel, left, unstageable Narrative/Plan: 75-year-old male presented hospital significant shortness of breath. Find evidence of congestive heart failure. It with diuresis is now considerably improved. Patient however is evidence of the ulceration to the left heel into the right great toes. The patient relates that he was wearing some compression stockings as the possible etiology of these ulcerations. However appears that he had a pressure that to the left heel. Local wound care to the heel will be with Santyl. This can be done daily. To the toes center dry with eschar foam dressing to protect him will be applied. He has the air boots in place which are appropriate. It should not be wearing compression stockings at this time. Arterial Dopplers will be requested to evaluate his peripheral status he does appear that he has peripheral vascular disease. He is at risk with his prior history of tobacco use. Print will be checked and we'll add a multivitamin. Status: Acute
[2016-10-13] MEDS ORDERED: COLLAGENASE 250 UNIT/GM OINTMENT 30 GM TUBE TOPICAL SCH (18:00)
--- NOTE | 2016-10-13 18:34 | PN ---
DATE OF SERVICE: 10/13/2016 This 75-year-old gentleman who was admitted with CHF, acute exacerbation, also has leg ulcers and leg wounds. The patient's creatinine is elevated at 2.20. The patient is being closely monitored. The patient is also confused compared to his baseline. Past medical history reviewed. REVIEW OF SYSTEMS: CARDIOVASCULAR SYSTEM: No angina, palpitations. RESPIRATORY SYSTEM: As mentioned earlier. GI: As mentioned earlier. : No dysuria, retention. NERVOUS SYSTEM: Mild diffuse weakness. Current medications are reviewed and include: 1. Ventolin 2.5 q.i.d. 2. Xanax 0.25 q.8 p.r.n. 3. Lipitor 20 mg at bedtime. 4. Vitamin D3 1000 daily. 5. Iron sulfate 325 mg with supper. 6. Lasix 40 mg IV daily. 7. Neurontin 100 mg p.o. t.i.d. 8. Apresoline 50 mg p.o. t.i.d. 9. Lantus 35 units subcutaneously at bedtime. 10. Humalog before meals and at bedtime. 11. Lispro 9 units before meals t.i.d. 12. Ativan 0.5 mg at bedtime p.r.n. 13. Lopressor 50 mg p.o. daily. 14. Nitro-Bid ointment 1 inch q.i.d. 15. Percocet 5 mg. 16. Protonix 40 mg daily. PHYSICAL EXAMINATION: Patient is alert and oriented x2. Pulse is 64, blood pressure 101/62, respiration 18, temperature 98.7, pulse ox 98% on 2 L. HEENT: Conjunctivae normal. NECK: No jugular venous distention. CARDIOVASCULAR SYSTEM: S1, S2 muffled. RESPIRATORY SYSTEM: Breath sounds diminished at the bases. Bilateral scattered rhonchi and crackles. ABDOMEN: Soft, obese. LEGS: Leg wounds and cellulitis present. NERVOUS SYSTEM: No focal deficit. LABS: WBC 6.5, hemoglobin 10.1. INR 2.7. Sodium 147. Creatinine is 2.20. ASSESSMENT: 1. Congestive heart failure, acute exacerbation, with acute on chronic diastolic dysfunction; ejection fraction 55% to 60%. 2. Left heel and right toe wounds with acute cellulitis. 3. Chronic kidney disease, stage II. 4. Coumadin coagulopathy. 5. Anemia, normocytic; anemia of chronic disease. 6. Change in mental status, metabolic encephalopathy, multifactorial. 7. Gait dysfunction. 8. Mild hypoalbuminemia. 9. Obesity with body mass index of 43.4. 10. History of congestive heart failure. 11. Cerebrovascular accident, transient ischemic attack. 12. History of diabetes mellitus, type 2. 13. Hypertension. 14. Hyperlipidemia. 15. History of degenerative joint disease. 16. History of prostate cancer. 17. Chronic hypoxic respiratory failure, on home oxygen nasal cannula. 18. Appendectomy. 19. History of back surgery. 20. Remote history of nicotine dependence. 21. FULL CODE. RECOMMENDATIONS AND DISCUSSION: In this 75-year-old gentleman who presented with multiple complex medical issues, we will monitor the patient closely, continue the current medications, continue with symptomatic treatment. Otherwise, at this time I recommend continued monitoring of the fluid/electrolyte balance. Continue with the antibiotics. Otherwise, guarded prognosis because of multiple complex medical issues. Closely follow with Cardiology and Infectious Disease. Further recommendations to follow.
[2016-10-13] MEDS: LORazepam 0.5 MG TAB PO PRN (21:07)
[2016-10-13 21:08] LABS: Glucose,Whole Blood 186 mg/dL (75-99)
[2016-10-13] MEDS: ATORVASTATIN 20 MG TAB PO SCH (21:08)
[2016-10-13] MEDS: INSULIN GLARGINE 100 UNIT/ML 10 ML VIAL SQ SCH (21:08)
[2016-10-14 06:32] LABS: Glucose,Whole Blood 159 mg/dL (75-99)
[2016-10-14 06:38] LABS: Anisocytosis Slight; Basophils % (A) 1 %; CH 27.5; CHCM 27.1; Eosinophils # (A) 0.2 k/uL (0-0.7); Eosinophils % (A) 3 %; HCT 34.1 % (39.0-53.0); HDW 3.03; HGB 9.5 gm/dL (13.0-17.5); Hypochromasia Marked; Luc # (Auto) 0.15; Luc % (Auto) 2; Lymphocytes # (A) 1.2 k/uL (1.0-4.8); Lymphocytes % (A) 16 %; MCH 28.3 pg (25.0-35.0); MCHC 27.8 g/dL (31.0-37.0); MCV 101.9 fL (80.0-100.0); Macrocytosis Moderate; Mean Platelet Volume 7.8; Monocytes # (A) 0.4 k/uL (0-1.0); Monocytes % (A) 5 %; Neutrophils # (A) 5.1 k/uL (1.3-7.7); Neutrophils % (A) 73 %; RBC 3.35 m/uL (4.30-5.90); RDW 18.1 % (11.5-15.5); WBC (Perox) 6.78
[2016-10-14 06:49] LABS: INR 1.7 (<1.1)
[2016-10-14] MEDS: PANTOPRAZOLE 40 MG TABLET PO SCH (06:51)
[2016-10-14] MEDS: INSULIN LISPRO (humaLOG) 300 UNIT/3 ML VIAL SQ SCH ×7 (06:52→20:56)
[2016-10-14 06:57] LABS: Calcium 8.4 mg/dL (8.4-10.2); Potassium 4.6 mmol/L (3.5-5.1)
[2016-10-14] MEDS: ALBUTEROL NEBULIZED 2.5 MG/3 ML INHALATION SCH ×4 (08:40→21:26)
[2016-10-14] MEDS: METOPROLOL TARTRATE 50 MG TAB PO SCH ×2 (09:20→20:56)
[2016-10-14] MEDS: FUROSEMIDE 10 MG/ML 4 ML VIAL IV SCH (09:21)
[2016-10-14] MEDS: hydrALAZINE HCL 50 MG TAB PO SCH ×3 (09:21→20:55)
[2016-10-14] MEDS: NITROGLYCERIN OINT 1 INCH/GM PACKET TOPICAL SCH ×4 (09:21→20:56)
[2016-10-14] MEDS: GABAPENTIN 100 MG CAP PO SCH ×3 (09:21→21:13)
[2016-10-14 11:42] LABS: Glucose,Whole Blood 205 mg/dL (75-99)
[2016-10-14] MEDS: CHOLECALCIFEROL 1,000 UNIT TAB PO SCH (12:14)
[2016-10-14] MEDS: MULTIVITAMINS, THERA 1 EACH TAB PO SCH (12:14)
[2016-10-14 16:40] LABS: Glucose,Whole Blood 159 mg/dL (75-99)
[2016-10-14] MEDS: FERROUS SULFATE 325 MG TAB PO SCH (17:06)
[2016-10-14 20:16] LABS: Glucose,Whole Blood 176 mg/dL (75-99)
[2016-10-14] MEDS: LORazepam 0.5 MG TAB PO PRN (20:55)
[2016-10-14] MEDS: ATORVASTATIN 20 MG TAB PO SCH (20:55)
[2016-10-14] MEDS: COLLAGENASE 250 UNIT/GM OINTMENT 30 GM TUBE TOPICAL SCH (20:55)
[2016-10-14] MEDS: INSULIN GLARGINE 100 UNIT/ML 10 ML VIAL SQ SCH (20:55)
[2016-10-15 05:54] LABS: Glucose,Whole Blood 167 mg/dL (75-99)
[2016-10-15] MEDS: oxyCODONE-APAP 5-325MG 1 EACH TAB PO PRN ×2 (05:59→16:36)
[2016-10-15 06:34] LABS: Anisocytosis Slight; Basophils % (A) 0 %; CH 27.8; CHCM 27.8; Eosinophils # (A) 0.1 k/uL (0-0.7); Eosinophils % (A) 2 %; HCT 35.7 % (39.0-53.0); HGB 10.2 gm/dL (13.0-17.5); Hypochromasia Marked; Luc # (Auto) 0.09; Luc % (Auto) 1; Lymphocytes # (A) 1.1 k/uL (1.0-4.8); Lymphocytes % (A) 17 %; MCH 28.7 pg (25.0-35.0); MCHC 28.5 g/dL (31.0-37.0); MCV 100.5 fL (80.0-100.0); Macrocytosis Moderate; Mean Platelet Volume 8.2; Monocytes # (A) 0.4 k/uL (0-1.0); Monocytes % (A) 6 %; Neutrophils # (A) 4.8 k/uL (1.3-7.7); Neutrophils % (A) 73 %; RBC 3.55 m/uL (4.30-5.90); RDW 18.2 % (11.5-15.5); WBC 6.6 k/uL (3.8-10.6); WBC (Perox) 6.65
[2016-10-15 06:41] LABS: INR 1.4 (<1.1); Prothrombin Time 13.6 sec (9.0-12.0)
[2016-10-15 06:47] LABS: Calcium 8.7 mg/dL (8.4-10.2)
[2016-10-15] MEDS: PANTOPRAZOLE 40 MG TABLET PO SCH (06:50)
[2016-10-15] MEDS: INSULIN LISPRO (humaLOG) 300 UNIT/3 ML VIAL SQ SCH ×7 (06:50→22:15)
[2016-10-15 06:55] LABS: Potassium 5.2 mmol/L (3.5-5.1)
[2016-10-15] MEDS: ALBUTEROL NEBULIZED 2.5 MG/3 ML INHALATION SCH ×4 (08:14→19:12)
[2016-10-15] MEDS: FUROSEMIDE 10 MG/ML 4 ML VIAL IV SCH (08:53)
[2016-10-15] MEDS: hydrALAZINE HCL 50 MG TAB PO SCH ×3 (08:54→22:15)
[2016-10-15] MEDS: GABAPENTIN 100 MG CAP PO SCH ×3 (08:54→22:15)
[2016-10-15] MEDS: METOPROLOL TARTRATE 50 MG TAB PO SCH ×2 (08:55→22:15)
[2016-10-15] MEDS: CHOLECALCIFEROL 1,000 UNIT TAB PO SCH (08:55)
[2016-10-15] MEDS: NITROGLYCERIN OINT 1 INCH/GM PACKET TOPICAL SCH ×4 (08:55→22:15)
[2016-10-15] MEDS: MULTIVITAMINS, THERA 1 EACH TAB PO SCH (08:56)
--- NOTE | 2016-10-15 10:32 | PN ---
DATE OF SERVICE: 10/14/2016 This 75-year-old gentleman admitted with CHF acute exacerbation, also had bilateral heel ulcers with some cellulitis and necrotic lesions, right more than the left. The patient also seen by Dr. Richter today. The patient also had some ischemic lesions. No chest pain, no palpitation. No fever. On exam, alert and oriented x2. Pulse is 69, blood pressure 136/75, respirations 14, temperature 97.1, pulse ox 90% on 2-L. HEENT: Conjunctive normal. NECK: No jugular venous distention. CARDIOVASCULAR: S1 and S2, muffled. RESPIRATORY: Breath sounds diminished at the bases. Bilateral scattered rhonchi and crackles. ABDOMEN: Soft, nontender. No mass palpable. LEGS: Bilateral swelling present, otherwise heel ulcer, unstageable and as well as gluteal lesion also present on the right. LABS: WBC 17, hemoglobin 9.5, Accu-Cheks are noted. Creatinine 1.90. ASSESSMENT: 1. Congestive heart failure acute exacerbation with acute on chronic diastolic dysfunction, ejection fraction 50 to 60%. 2. Left heel and right toe wounds with acute cellulitis. 3. Chronic kidney disease, stage II. 4. Peripheral vascular disease. 5. Coumadin coagulopathy. 6. Anemia, normocytic, anemia of chronic disease. 7. Change in mental status, metabolic encephalopathy, multifactorial. 8. Gait dysfunction. 9. Mild hypoalbuminemia. 10. Obesity with body mass index of 43.4. 11. History of congestive heart failure. 12. Cerebrovascular accident, transient ischemic attack. 13. History of diabetes type 2. 14. Hypertension. 15. Hyperlipidemia. 16. History of degenerative joint disease. 17. History of prostate cancer. 18. Chronic hypoxic respiratory failure on home O2 nasal cannula. 19. Appendectomy. 20. History of back surgery. 21. Remote history of nicotine dependence. 22. FULL CODE. RECOMMENDATIONS AND DISCUSSION: I recommend to continue the current medications, continue monitoring and continue symptomatic treatment. Otherwise possible ECF rehab. Guarded prognosis. Further recommendations to follow.
[2016-10-15 11:49] LABS: Glucose,Whole Blood 181 mg/dL (75-99)
[2016-10-15 16:46] LABS: Glucose,Whole Blood 163 mg/dL (75-99)
[2016-10-15] MEDS: FERROUS SULFATE 325 MG TAB PO SCH (17:36)
[2016-10-15 19:58] LABS: Glucose,Whole Blood 244 mg/dL (75-99)
[2016-10-15] MEDS: ATORVASTATIN 20 MG TAB PO SCH (22:14)
[2016-10-15] MEDS: COLLAGENASE 250 UNIT/GM OINTMENT 30 GM TUBE TOPICAL SCH (22:14)
[2016-10-15] MEDS: INSULIN GLARGINE 100 UNIT/ML 10 ML VIAL SQ SCH (22:14)
[2016-10-16 07:25] LABS: Glucose,Whole Blood 139 mg/dL (75-99)
[2016-10-16 08:27] LABS: INR 1.3 (<1.1); Prothrombin Time 12.6 sec (9.0-12.0)
[2016-10-16 08:33] LABS: Calcium 8.5 mg/dL (8.4-10.2); Potassium 4.6 mmol/L (3.5-5.1)
[2016-10-16 08:35] LABS: Anisocytosis Slight; Basophils % (A) 1 %; CHCM 28.5; Eosinophils # (A) 0.1 k/uL (0-0.7); Eosinophils % (A) 2 %; HCT 29.9 % (39.0-53.0); HDW 2.91; Hypochromasia Marked; Luc # (Auto) 0.09; Luc % (Auto) 2; Lymphocytes % (A) 17 %; MCH 28.6 pg (25.0-35.0); MCV 98.5 fL (80.0-100.0); Macrocytosis Slight; Mean Platelet Volume 8.1; Monocytes # (A) 0.3 k/uL (0-1.0); Monocytes % (A) 6 %; Neutrophils # (A) 4.2 k/uL (1.3-7.7); Neutrophils % (A) 73 %; RBC 3.04 m/uL (4.30-5.90); RDW 17.7 % (11.5-15.5); WBC 5.7 k/uL (3.8-10.6); WBC (Perox) 5.66
[2016-10-16 08:36] LABS: HGB 8.7 gm/dL (13.0-17.5)
[2016-10-16] MEDS: hydrALAZINE HCL 50 MG TAB PO SCH ×3 (08:36→21:23)
[2016-10-16] MEDS: FUROSEMIDE 10 MG/ML 4 ML VIAL IV SCH (08:36)
[2016-10-16] MEDS: ALBUTEROL NEBULIZED 2.5 MG/3 ML INHALATION SCH ×4 (08:36→19:09)
[2016-10-16] MEDS: PANTOPRAZOLE 40 MG TABLET PO SCH (08:36)
[2016-10-16] MEDS: GABAPENTIN 100 MG CAP PO SCH ×3 (08:36→21:23)
[2016-10-16] MEDS: METOPROLOL TARTRATE 50 MG TAB PO SCH ×2 (08:36→21:23)
[2016-10-16] MEDS: NITROGLYCERIN OINT 1 INCH/GM PACKET TOPICAL SCH ×4 (08:36→21:33)
[2016-10-16] MEDS: INSULIN LISPRO (humaLOG) 300 UNIT/3 ML VIAL SQ SCH ×7 (08:37→21:23)
[2016-10-16 11:21] LABS: Glucose,Whole Blood 137 mg/dL (75-99)
[2016-10-16] MEDS: CHOLECALCIFEROL 1,000 UNIT TAB PO SCH (12:42)
[2016-10-16] MEDS: MULTIVITAMINS, THERA 1 EACH TAB PO SCH (12:42)
[2016-10-16] MEDS: oxyCODONE-APAP 5-325MG 1 EACH TAB PO PRN ×2 (14:20→21:22)
[2016-10-16 15:36] VITALS: RESP 16
--- NOTE | 2016-10-16 16:40 | PN ---
DATE OF SERVICE: 10/15/2016 This 75 -year-old gentleman admitted with CHF, acute exacerbation also had leg ulcers also. The patient improved significantly. ECF rehab is considered. No chest pain or palpitations. No fever. On exam, alert and oriented times two. Pulse 80, blood pressure 141/60, respiratory rate 17, temperature 97 degrees, pulse ox 97% on 2 L. HEENT: Conjunctivae normal. CARDIOVASCULAR: S1, S2 muffled. RESPIRATORY: Breath sounds diminished at the bases. No rhonchi. No crackles. ABDOMEN: Soft. Obese. Nontender. LEGS: Right leg ulcer present. CENTRAL NERVOUS SYSTEM: No focal deficits. LABS: WBC 6.7, hemoglobin 10.2. INR is 1.4, sodium 140, potassium 5.2, creatinine 1.74. ASSESSMENT: 1. Congestive heart failure acute exacerbation with acute on chronic diastolic dysfunction, ejection fraction 55 to 60%. 2. Left heel and right toe wounds with acute cellulitis. 3. Chronic kidney disease, stage II. 4. Peripheral vascular disease. 5. Coumadin coagulopathy. 6. Anemia, normocytic anemia of chronic disease. 7. Change in mental status, metabolic encephalopathy, multifactorial. 8. Gait dysfunction. 9. Hypoalbuminemia. 10. Obesity. Body mass index 43.4. 11. History of congestive heart failure. 12. History of cerebrovascular accident/ transient ischemic attack. 13. History of diabetes Type 2. 14. Hypertension. 15. Hyperlipidemia. 16. History of degenerative joint disease. 17. History of prostate cancer. 18. History of chronic hypoxic respiratory failure on home O2 nasal cannula. 19. Appendectomy. 20. History of back surgery. 21. Remote history of nicotine dependence. 22. FULL CODE. Recommendations discussion: In this 75-year-old gentleman who presented with multiple complex medical issues, we will monitor the patient closely, continue the current medications, continue symptomatic treatment. Otherwise, at this time, I recommend to continue diuretics. PT/OT evaluation. Monitor closely. Further recommendations to follow. Prognosis guarded.
[2016-10-16 17:08] LABS: Glucose,Whole Blood 136 mg/dL (75-99)
[2016-10-16] MEDS: FERROUS SULFATE 325 MG TAB PO SCH (17:54)
--- NOTE | 2016-10-16 19:41 | P.PN ---
Subjective Principal diagnosis: Wounds Pleasant 75-year-old male who lives independently relates he came to the emergency center because of increasing shortness of breath. He relates over the few days before he was admitted he was having increasing difficulties with orthopnea and dyspnea on exertion. He gets appointed time or he was short of breath at rest despite using his oxygen therapy. Because of this he presented emergency room where he was on evidence of significant congestive heart failure. With diuretic therapy he is not feeling somewhat better. Infectious diseases consultation request regarding the ulceration to the left heel as well as to the right foot great toe. The patient relates that he recently had an injury to the right pretibial area. He had a cellulitis of the developed heat and is on a file cabinet. That site is doing better but continues to have difficulties. Relates that he saw Dr. Muller was given some compression stockings. They apparently were closed toe and tight. He believes that this is part of how he developed the ulcerations to the right foot great toe and left heel. Does not recall significant trauma to that left heel. He is feeling slightly better today. Is denying other new acute complaints. Objective - Vital Signs Vital signs: Vital Signs Temp 98 F 10/16/16 15:00 Pulse 84 10/16/16 19:18 Resp 16 10/16/16 15:00 BP 104/54 10/16/16 15:00 Pulse Ox 98 10/16/16 15:00 Intake & Output 10/16/16 10/16/16 10/17/16 06:59 18:59 06:59 Intake Total 590 Output Total 475 Balance 115 Weight 126 kg Intake: Oral 590 Output: Urine 475 Other: Voiding Method Urinal Urinal # Voids 1 - Exam lefernando 75-year-old gentleman who relates he feels considerably better than admission. He is much less short of breath. Is able to lay much more flat with less shortness of breath. HEENT: Anicteric conjunctiva are pink and moist nasal mucosa grossly intact without significant lesions, there is no thrush. Poor dentition Neck: The neck is supple without significant lymphadenopathy or thyromegaly. Lungs: Symmetrical air entry with evidence of basilar crackles. No bronchial sounds no changes of egophony or tactile fremitus Heart: Irregular with an audible S1 and S2 no S3 soft S4 no distinct murmur click or rub PMI is nondisplaced. Abdomen: Obese Positive bowel sounds soft and nontender without palpable masses or organomegaly. There was no guarding or rebound. Extremities: Upper extremities have intact pulses and are symmetric. Some ecchymosis from IV site. The lower extremities have evidence of a marked improved edema. There is some wrinkling that is noted. On the left heel medial there is evidence of the 2.5 x 2 cm eschar with minimal surrounding erythema. The right great toe and second toe evidence of distal eschar formation also. There is no drainage or purulence is seen around the eschar in these areas. There is some mild tenderness only. The peripheral pulses are palpable. There is some swelling still to the feet and dry skin. Neuro: Awake alert oriented to person place and time. There are no acute new gross focal sensory motor deficits. Decreased sensation to bilateral feet as noted - Labs CBC & Chem 7: 10/16/16 07:18 10/16/16 07:18 Labs: Abnormal Lab Results - Last 24 Hours (Table) 10/15/16 10/16/16 10/16/16 Range/Units 19:57 07:13 07:18 RBC 3.04 L (4.30-5.90) m/uL Hgb 8.7 L D (13.0-17.5) gm/dL Hct 29.9 L (39.0-53.0) % MCHC 29.0 L (31.0-37.0) g/dL RDW 17.7 H (11.5-15.5) % PT (9.0-12.0) sec BUN (9-20) mg/dL Creatinine (0.66-1.25) mg/dL Glucose (74-99) mg/dL POC Glucose (mg/dL) 244 H 139 H (75-99) mg/dL 10/16/16 10/16/16 10/16/16 Range/Units 07:18 07:18 11:20 RBC (4.30-5.90) m/uL Hgb (13.0-17.5) gm/dL Hct (39.0-53.0) % MCHC (31.0-37.0) g/dL RDW (11.5-15.5) % PT 12.6 H (9.0-12.0) sec BUN 47 H (9-20) mg/dL Creatinine 1.74 H (0.66-1.25) mg/dL Glucose 133 H (74-99) mg/dL POC Glucose (mg/dL) 137 H (75-99) mg/dL 10/16/16 Range/Units 17:06 RBC (4.30-5.90) m/uL Hgb (13.0-17.5) gm/dL Hct (39.0-53.0) % MCHC (31.0-37.0) g/dL RDW (11.5-15.5) % PT (9.0-12.0) sec BUN (9-20) mg/dL Creatinine (0.66-1.25) mg/dL Glucose (74-99) mg/dL POC Glucose (mg/dL) 136 H (75-99) mg/dL Laboratory Results WBC 5.7 k/uL (3.8-10.6) 10/16/16 07:18 RBC 3.04 m/uL (4.30-5.90) L 10/16/16 07:18 Hgb 8.7 gm/dL (13.0-17.5) L D 10/16/16 07:18 Hct 29.9 % (39.0-53.0) L 10/16/16 07:18 MCV 98.5 fL (80.0-100.0) 10/16/16 07:18 MCH 28.6 pg (25.0-35.0) 10/16/16 07:18 MCHC 29.0 g/dL (31.0-37.0) L 10/16/16 07:18 RDW 17.7 % (11.5-15.5) H 10/16/16 07:18 Plt Count 177 k/uL (150-450) 10/16/16 07:18 Neutrophils % 73 % 10/16/16 07:18 Lymphocytes % 17 % 10/16/16 07:18 Monocytes % 6 % 10/16/16 07:18 Eosinophils % 2 % 10/16/16 07:18 Basophils % 1 % 10/16/16 07:18 Neutrophils # 4.2 k/uL (1.3-7.7) 10/16/16 07:18 Lymphocytes # 1.0 k/uL (1.0-4.8) 10/16/16 07:18 Monocytes # 0.3 k/uL (0-1.0) 10/16/16 07:18 Eosinophils # 0.1 k/uL (0-0.7) 10/16/16 07:18 Basophils # 0.0 k/uL (0-0.2) 10/16/16 07:18 Hypochromasia Marked 10/16/16 07:18 Poikilocytosis Slight 10/11/16 11:37 Anisocytosis Slight 10/16/16 07:18 Macrocytosis Slight 10/16/16 07:18 ESR 33 mm/hr (0-15) H 10/13/16 19:16 PT 12.6 sec (9.0-12.0) H 10/16/16 07:18 INR 1.3 (<1.1) 10/16/16 07:18 APTT 35.3 sec (22.0-30.0) H 10/11/16 11:37 Sodium 143 mmol/L (137-145) 10/16/16 07:18 Potassium 4.6 mmol/L (3.5-5.1) 10/16/16 07:18 Chloride 106 mmol/L (98-107) 10/16/16 07:18 Carbon Dioxide 28 mmol/L (22-30) 10/16/16 07:18 Anion Gap 9 mmol/L 10/16/16 07:18 BUN 47 mg/dL (9-20) H 10/16/16 07:18 Creatinine 1.74 mg/dL (0.66-1.25) H 10/16/16 07:18 Est GFR (MDRD) Af Amer 46 (>60 ml/min/1.73 sqM) 10/16/16 07:18 Est GFR (MDRD) Non-Af 38 (>60 ml/min/1.73 sqM) 10/16/16 07:18 Glucose 133 mg/dL (74-99) H 10/16/16 07:18 POC Glucose (mg/dL) 136 mg/dL (75-99) H 10/16/16 17:06 POC Glu Display Card Writer ID Terrance Gonzales 10/16/16 17:[address] Glu mg/dL 120 mg/dL 10/11/16 11:37 Hemoglobin A1c 5.8 % (4.2-6.1) 10/11/16 11:37 Calcium 8.5 mg/dL (8.4-10.2) 10/16/16 07:18 Magnesium 1.8 mg/dL (1.6-2.3) 10/14/16 06:31 Total Bilirubin 1.8 mg/dL (0.2-1.3) H 10/11/16 11:37 AST 19 U/L (17-59) 10/11/16 11:37 ALT 28 U/L (21-72) 10/11/16 11:37 Alkaline Phosphatase 144 U/L (38-126) H 10/11/16 11:37 Total Creatine Kinase 42 U/L (55-170) L 10/11/16 11:37 CK-MB (CK-2) 2.2 ng/mL (0.0-2.4) 10/11/16 11:37 CK-MB (CK-2) Rel Index 5.2 10/11/16 11:37 Troponin I 0.018 ng/mL (0.000-0.034) 10/11/16 11:37 NT-Pro-B Natriuret Pep 25886 pg/mL 10/11/16 11:37 Total Protein 6.6 g/dL (6.3-8.2) 10/11/16 11:37 Albumin 3.2 g/dL (3.5-5.0) L 10/11/16 11:37 Prealbumin 10 mg/dL (18-36) L 10/13/16 18:45 Assessment and Plan (1) Acute pulmonary edema Status: Acute (2) Subtherapeutic international normalized ratio (INR) Status: Acute (3) Pressure ulcer, heel, left, unstageable Narrative/Plan: 75-year-old male presented hospital significant shortness of breath. Find evidence of congestive heart failure. It with diuresis is now considerably improved. Patient however is evidence of the ulceration to the left heel into the right great toes. The patient relates that he was wearing some compression stockings as the possible etiology of these ulcerations. However appears that he had a pressure that to the left heel. Local wound care to the heel will be with Santyl. This can be done daily. To the toes center dry with eschar foam dressing to protect him will be applied. He has the air boots in place which are appropriate. It should not be wearing compression stockings at this time. Arterial Dopplers will be requested to evaluate his peripheral status he does appear that he has peripheral vascular disease. They are pending at this time He is at risk with his prior history of tobacco use. Pre-albumin is been checked and is 10 which is very low sentiments of the significant protein malnutrition. Is in need of protein supplementation. Consider a multivitamin. Status: Acute
[2016-10-16 20:09] LABS: Glucose,Whole Blood 171 mg/dL (75-99)
[2016-10-16] MEDS: LORazepam 0.5 MG TAB PO PRN (21:22)
[2016-10-16] MEDS: INSULIN GLARGINE 100 UNIT/ML 10 ML VIAL SQ SCH (21:22)
[2016-10-16] MEDS: ATORVASTATIN 20 MG TAB PO SCH (21:23)
[2016-10-16] MEDS: COLLAGENASE 250 UNIT/GM OINTMENT 30 GM TUBE TOPICAL SCH (21:23)
--- NOTE | 2016-10-16 23:18 | PN ---
DATE OF SERVICE: 10/16/2016 PRESENTING COMPLAINT: Short of breath. INTERVAL HISTORY: This patient presented with acute CHF exacerbation. Breathing is actually better. Did tolerate a diet. States has not had a bowel movement for 2 or 3 days at least. Patient has a decubitus ulcer on the left heel and also ischemic toes on the right side. The patient has peripheral neuropathy. Review of systems done for constitutional, cardiovascular, GI, pulmonary, dermatological; relevant findings as above. Current medications are reviewed that include IV Lasix. On examination, temperature 98, pulse 77, respiration 16, blood pressure 104/54, pulse ox 98% on room air. GENERAL APPEARANCE: Lying in bed, somewhat disheveled, tired. HEENT: Pupils equal. Conjunctivae normal. NECK: JVD unable to assess. Mass not palpable. RESPIRATORY: Effort increased. LUNGS: Diminished breath sounds. CARDIOVASCULAR: First and second seconds normal. Minimal edema. ABDOMEN: Soft, non-tender. Liver and spleen not palpable. PSYCHIATRY: Awake. Answering simple questions. EXTREMITIES: Decubitus ulcer on the left heel and ischemic right big toe and fourth toe with ( ) gangrene changes. INVESTIGATIONS: White count 5.7, hemoglobin 8.7. Potassium 4.6. BUN 47, creatinine 1.74. Accu-Cheks are noted. ASSESSMENT: 1. Acute congestive heart failure exacerbation on chronic from diastolic dysfunction; ejection fraction 55% to 60%. 2. Left heel decubitus ulcer. 3. Chronic kidney disease, stage III, from nephrosclerosis. 4. Peripheral arterial disease. 5. Anemia of chronic kidney disease. 6. Acute metabolic encephalopathy on presentation, multifactorial. 7. Obesity; body mass index of 43.4. 8. Diabetes mellitus, type 2, chronically on insulin. 9. Essential hypertension. 10. Hyperlipidemia. 11. Primary osteoarthritis in multiple joints. 12. Chronic hypoxic respiratory failure, on home oxygen. Patient says he seems to have reached his baseline. 13. Hypertensive heart disease. Overall prognosis is guarded. Hopefully, the ( ) toe will autoamputate. Overall prognosis is guarded.
[2016-10-17 07:09] LABS: Glucose,Whole Blood 165 mg/dL (75-99)
[2016-10-17] MEDS: ALBUTEROL NEBULIZED 2.5 MG/3 ML INHALATION SCH ×2 (07:32→12:58)
[2016-10-17 07:41] VITALS: BP 160/80; PULSE 80; TEMP 99.3
[2016-10-17] MEDS: INSULIN LISPRO (humaLOG) 300 UNIT/3 ML VIAL SQ SCH ×4 (08:01→12:23)
[2016-10-17] MEDS: GABAPENTIN 100 MG CAP PO SCH (08:01)
[2016-10-17] MEDS: FUROSEMIDE 10 MG/ML 4 ML VIAL IV SCH (08:02)
[2016-10-17] MEDS: hydrALAZINE HCL 50 MG TAB PO SCH (08:02)
[2016-10-17] MEDS: PANTOPRAZOLE 40 MG TABLET PO SCH (08:02)
[2016-10-17] MEDS: METOPROLOL TARTRATE 50 MG TAB PO SCH (08:03)
[2016-10-17] MEDS: NITROGLYCERIN OINT 1 INCH/GM PACKET TOPICAL SCH ×2 (08:03→12:24)
[2016-10-17 11:01] LABS: Glucose,Whole Blood 182 mg/dL (75-99)
--- NOTE | 2016-10-17 11:55 | DS ---
DATE OF ADMISSION: 10/11/2016 DATE OF DISCHARGE: 10/17/2016 FINAL DIAGNOSES: 1. Acute on chronic congestive heart failure exacerbation from diastolic dysfunction; ejection fraction 55% to 60% from underlying hypertension. 2. Left heel decubitus ulcer, present on admission. 3. Chronic kidney disease, stage III from nephrosclerosis. 4. Peripheral artery disease. 5. Anemia of chronic kidney disease. 6. Acute metabolic encephalopathy on presentation, multifactorial. 7. Obesity, body mass index of 43.4. 8. Diabetes mellitus type 2, chronically on insulin. 9. Essential hypertension. 10. Hyperlipidemia. 11. Primary osteoarthritis of multiple joints. 12. Chronic hypoxic respiratory failure on home oxygen. 13. Hypertensive heart disease. 14. Dry gangrene of the right big toe and fourth toe, probably from underlying peripheral artery disease, present at admission. 15. Acute renal failure, probably acute tubular necrosis with clinical recovery. HOSPITAL COURSE: The patient presented CHF exacerbation, responded well to Lasix. EF is 55% to 60%. Patient has got a left heel decub ulcer. Follow up with Dr. Richter. Will have patient see Dr. Muro as an outpatient. It is believed, patient was told it will probably ought to amputate. Care was discussed with the patient. On examination: LUNGS: Decreased breath sounds. CARDIOVASCULAR: First and second sounds normal. LABS: BUN 47, creatinine 1.74. CONSULTATION: Dr. Richter, Infectious Disease. DISCHARGE MEDICATIONS: 1. Ventolin 2.5 nebulizer q.i.d. 2. Lipitor 20 mg q.h.s. 3. Vitamin D3 one thousand units p.o. at noon. 4. Santyl topical q.h.s. 5. Iron 325 p.o. with supper. 6. Lasix 40 mg a day. 7. Neurontin 100 mg p.o. t.i.d. 8. Humalog 9 units subQ a.c. t.i.d. 9. Lantus 35 units subQ q.h.s. 10. Lopressor 50 mg p.o. b.i.d. 11. Multivitamin 1 tablet p.o. daily. 12. Protonix 40 mg with breakfast. 13. Coumadin 2.5 mg p.o. daily. 14. Hydralazine 50 mg p.o. t.i.d. 15. Melatonin 3 mg p.o. q.h.s. 16. Percocet 5 one tablet p.o. q.6 p.r.n. for pain. LABS: CBC, BMP, INR in 3 days. DISPOSITION: [facility]. Follow with Dr. Fitzpatrick at [facility] and follow up with Dr. Muro in one week. DC planning more than 35 minutes.
[2016-10-17] MEDS: CHOLECALCIFEROL 1,000 UNIT TAB PO SCH (12:23)
[2016-10-17] MEDS: MULTIVITAMINS, THERA 1 EACH TAB PO SCH (12:23)
[2016-10-17 14:37] LABS: Anisocytosis Slight; Basophils % (A) 0 %; CH 28.4; CHCM 29.3; Eosinophils # (A) 0.1 k/uL (0-0.7); Eosinophils % (A) 2 %; HCT 31.2 % (39.0-53.0); HDW 2.87; Hypochromasia Marked; Luc % (Auto) 2; Lymphocytes # (A) 1.2 k/uL (1.0-4.8); Lymphocytes % (A) 22 %; MCH 28.3 pg (25.0-35.0); MCV 97.5 fL (80.0-100.0); Macrocytosis Slight; Mean Platelet Volume 8.8; Monocytes # (A) 0.3 k/uL (0-1.0); Monocytes % (A) 6 %; Neutrophils # (A) 3.7 k/uL (1.3-7.7); Neutrophils % (A) 68 %; RDW 17.7 % (11.5-15.5); WBC 5.4 k/uL (3.8-10.6); WBC (Perox) 5.82
[2016-10-17 14:45] LABS: INR 1.2 (<1.1); Prothrombin Time 11.6 sec (9.0-12.0)
[2016-10-17 14:54] LABS: Calcium 8.8 mg/dL (8.4-10.2); Potassium 4.8 mmol/L (3.5-5.1)
--- NOTE | 2016-10-17 18:53 | P.PN ---
Subjective Principal diagnosis: Wounds Pleasant 75-year-old male who lives independently relates he came to the emergency center because of increasing shortness of breath. He relates over the few days before he was admitted he was having increasing difficulties with orthopnea and dyspnea on exertion. He gets appointed time or he was short of breath at rest despite using his oxygen therapy. Because of this he presented emergency room where he was on evidence of significant congestive heart failure. With diuretic therapy he is not feeling somewhat better. Infectious diseases consultation request regarding the ulceration to the left heel as well as to the right foot great toe. The patient relates that he recently had an injury to the right pretibial area. He had a cellulitis of the developed heat and is on a file cabinet. That site is doing better but continues to have difficulties. Relates that he saw Dr. Muller was given some compression stockings. They apparently were closed toe and tight. He believes that this is part of how he developed the ulcerations to the right foot great toe and left heel. Does not recall significant trauma to that left heel. He is feeling slightly better today. Is denying other new acute complaints. Objective - Vital Signs Vital signs: Vital Signs Temp 99.3 F 10/17/16 07:00 Pulse 80 10/17/16 12:58 Resp 16 10/17/16 07:34 BP 160/80 10/17/16 07:00 Pulse Ox 98 10/17/16 07:34 Intake & Output 10/16/16 10/17/16 10/17/16 18:59 06:59 18:59 Intake Total 590 Output Total 550 Balance 40 Weight 123 kg Intake: Oral 590 Output: Urine 550 Other: Voiding Method Urinal Urinal Urinal # Voids 2 - Exam lefernando 75-year-old gentleman who relates he feels considerably better than admission. He is much less short of breath. Is able to lay much more flat with less shortness of breath. HEENT: Anicteric conjunctiva are pink and moist nasal mucosa grossly intact without significant lesions, there is no thrush. Poor dentition Neck: The neck is supple without significant lymphadenopathy or thyromegaly. Lungs: Symmetrical air entry with evidence of basilar crackles. No bronchial sounds no changes of egophony or tactile fremitus Heart: Irregular with an audible S1 and S2 no S3 soft S4 no distinct murmur click or rub PMI is nondisplaced. Abdomen: Obese Positive bowel sounds soft and nontender without palpable masses or organomegaly. There was no guarding or rebound. Extremities: Upper extremities have intact pulses and are symmetric. Some ecchymosis from IV site. The lower extremities have evidence of a marked improved edema. There is some wrinkling that is noted. On the left heel medial there is evidence of the 2.5 x 2 cm eschar with minimal surrounding erythema. The right great toe and second toe evidence of distal eschar formation also. There is no drainage or purulence is seen around the eschar in these areas. There is some mild tenderness only. The peripheral pulses are palpable. There is some swelling still to the feet and dry skin. Neuro: Awake alert oriented to person place and time. There are no acute new gross focal sensory motor deficits. Decreased sensation to bilateral feet as noted - Labs CBC & Chem 7: 10/17/16 14:05 10/17/16 14:05 Labs: Abnormal Lab Results - Last 24 Hours (Table) 10/16/16 10/17/16 10/17/16 Range/Units 20:08 07:08 10:57 RBC (4.30-5.90) m/uL Hgb (13.0-17.5) gm/dL Hct (39.0-53.0) % MCHC (31.0-37.0) g/dL RDW (11.5-15.5) % BUN (9-20) mg/dL Creatinine (0.66-1.25) mg/dL Glucose (74-99) mg/dL POC Glucose (mg/dL) 171 H 165 H 182 H (75-99) mg/dL 10/17/16 10/17/16 Range/Units 14:05 14:05 RBC 3.20 L (4.30-5.90) m/uL Hgb 9.0 L (13.0-17.5) gm/dL Hct 31.2 L (39.0-53.0) % MCHC 29.0 L (31.0-37.0) g/dL RDW 17.7 H (11.5-15.5) % BUN 56 H (9-20) mg/dL Creatinine 1.74 H (0.66-1.25) mg/dL Glucose 157 H (74-99) mg/dL POC Glucose (mg/dL) (75-99) mg/dL Laboratory Results WBC 5.4 k/uL (3.8-10.6) 10/17/16 14:05 RBC 3.20 m/uL (4.30-5.90) L 10/17/16 14:05 Hgb 9.0 gm/dL (13.0-17.5) L 10/17/16 14:05 Hct 31.2 % (39.0-53.0) L 10/17/16 14:05 MCV 97.5 fL (80.0-100.0) 10/17/16 14:05 MCH 28.3 pg (25.0-35.0) 10/17/16 14:05 MCHC 29.0 g/dL (31.0-37.0) L 10/17/16 14:05 RDW 17.7 % (11.5-15.5) H 10/17/16 14:05 Plt Count 196 k/uL (150-450) 10/17/16 14:05 Neutrophils % 68 % 10/17/16 14:05 Lymphocytes % 22 % 10/17/16 14:05 Monocytes % 6 % 10/17/16 14:05 Eosinophils % 2 % 10/17/16 14:05 Basophils % 0 % 10/17/16 14:05 Neutrophils # 3.7 k/uL (1.3-7.7) 10/17/16 14:05 Lymphocytes # 1.2 k/uL (1.0-4.8) 10/17/16 14:05 Monocytes # 0.3 k/uL (0-1.0) 10/17/16 14:05 Eosinophils # 0.1 k/uL (0-0.7) 10/17/16 14:05 Basophils # 0.0 k/uL (0-0.2) 10/17/16 14:05 Hypochromasia Marked 10/17/16 14:05 Poikilocytosis Slight 10/11/16 11:37 Anisocytosis Slight 10/17/16 14:05 Macrocytosis Slight 10/17/16 14:05 ESR 33 mm/hr (0-15) H 10/13/16 19:16 PT 11.6 sec (9.0-12.0) 10/17/16 14:05 INR 1.2 (<1.1) 10/17/16 14:05 APTT 35.3 sec (22.0-30.0) H 10/11/16 11:37 Sodium 142 mmol/L (137-145) 10/17/16 14:05 Potassium 4.8 mmol/L (3.5-5.1) 10/17/16 14:05 Chloride 103 mmol/L (98-107) 10/17/16 14:05 Carbon Dioxide 29 mmol/L (22-30) 10/17/16 14:05 Anion Gap 10 mmol/L 10/17/16 14:05 BUN 56 mg/dL (9-20) H 10/17/16 14:05 Creatinine 1.74 mg/dL (0.66-1.25) H 10/17/16 14:05 Est GFR (MDRD) Af Amer 46 (>60 ml/min/1.73 sqM) 10/17/16 14:05 Est GFR (MDRD) Non-Af 38 (>60 ml/min/1.73 sqM) 10/17/16 14:05 Glucose 157 mg/dL (74-99) H 10/17/16 14:05 POC Glucose (mg/dL) 182 mg/dL (75-99) H 10/17/16 10:57 POC Glu Glass Enamel Mixer ID Lien Torres 10/17/16 10:[address] Glu mg/dL 120 mg/dL 10/11/16 11:37 Hemoglobin A1c 5.8 % (4.2-6.1) 10/11/16 11:37 Calcium 8.8 mg/dL (8.4-10.2) 10/17/16 14:05 Magnesium 1.8 mg/dL (1.6-2.3) 10/14/16 06:31 Total Bilirubin 1.8 mg/dL (0.2-1.3) H 10/11/16 11:37 AST 19 U/L (17-59) 10/11/16 11:37 ALT 28 U/L (21-72) 10/11/16 11:37 Alkaline Phosphatase 144 U/L (38-126) H 10/11/16 11:37 Total Creatine Kinase 42 U/L (55-170) L 10/11/16 11:37 CK-MB (CK-2) 2.2 ng/mL (0.0-2.4) 10/11/16 11:37 CK-MB (CK-2) Rel Index 5.2 10/11/16 11:37 Troponin I 0.018 ng/mL (0.000-0.034) 10/11/16 11:37 NT-Pro-B Natriuret Pep 03313 pg/mL 10/11/16 11:37 Total Protein 6.6 g/dL (6.3-8.2) 10/11/16 11:37 Albumin 3.2 g/dL (3.5-5.0) L 10/11/16 11:37 Prealbumin 10 mg/dL (18-36) L 10/13/16 18:45 Assessment and Plan (1) Acute pulmonary edema Status: Acute (2) Subtherapeutic international normalized ratio (INR) Status: Acute (3) Pressure ulcer, heel, left, unstageable Narrative/Plan: 75-year-old male presented hospital significant shortness of breath. Find evidence of congestive heart failure. It with diuresis is now considerably improved. Patient however is evidence of the ulceration to the left heel into the right great toes. The patient relates that he was wearing some compression stockings as the possible etiology of these ulcerations. However appears that he had a pressure that to the left heel. Local wound care to the heel will be with Santyl. This can be done daily. To the toes center dry with eschar foam dressing to protect him will be applied. He has the air boots in place which are appropriate. It should not be wearing compression stockings at this time. Arterial Dopplers have been performed. Evidence of extensive vascular disease by the inability to occlude his arteries and no ability to measure toe pressures. May need further vascular surgery follow-up and outpatient setting. He is at risk with his prior history of tobacco use. Pre-albumin is been checked and is 10 which is very low evidence of the significant protein malnutrition. Is in need of protein supplementation. Consider a multivitamin. The ulcers do not appear to be infected at this time. Status: Acute
--- NOTE | 2016-10-18 10:58 | P.ARTDOP ---
Arterial Doppler LOWER EXTREMITY ARTERIAL DOPPLER: DATE OF SERVICE: 10/14/2016 Reason for study: []. Doppler waveforms: Multiphasic throughout on the left. Multiphasic at the right femoral and popliteal and blunted distally on the right. Pulse volume recording: Normal configuration at the femorals. Lung to distally throughout. Near flat line right toe. Pressure gradients: Cannot record. Ankle-brachial indices: Cannot occlude. Toe pressures: [] on the right, [] on the left Impression: Suspect diffuse calcific wall disease. Could BE Court poor cardiac output or some degree of iliofemoral disease. Clinical correlation recommended. Rather difficult study to get a good interpretation on..
== END 2016-10-17 15:38 | DRG 291 ==
LOC: EC 09:57 → 6SEL 13:05 → 5MS5E 10-15 16:54
PROVIDERS: ADMIT Internal Medicine; ATTEND Internal Medicine
DX: I13.0 Hypertensive heart and chronic kidney disease with heart failure and stage 1 through stage 4 chronic kidney disease, or unspecified chronic kidney disease (principal); N17.0 Acute kidney failure with tubular necrosis; G93.41 Metabolic encephalopathy; J96.11 Chronic respiratory failure with hypoxia; E46 Unspecified protein-calorie malnutrition; I50.33 Acute on chronic diastolic (congestive) heart failure; E11.52 Type 2 diabetes mellitus with diabetic peripheral angiopathy with gangrene; Z68.41 Body mass index [BMI] 40.0-44.9, adult; L97.419 Non-pressure chronic ulcer of right heel and midfoot with unspecified severity; L97.429 Non-pressure chronic ulcer of left heel and midfoot with unspecified severity; E78.5 Hyperlipidemia, unspecified; Z99.81 Dependence on supplemental oxygen; N18.3 Chronic kidney disease, stage 3 (moderate); I35.1 Nonrheumatic aortic (valve) insufficiency; E88.09 Other disorders of plasma-protein metabolism, not elsewhere classified; E11.40 Type 2 diabetes mellitus with diabetic neuropathy, unspecified; E11.22 Type 2 diabetes mellitus with diabetic chronic kidney disease; L89.890 Pressure ulcer of other site, unstageable; E11.621 Type 2 diabetes mellitus with foot ulcer; L89.620 Pressure ulcer of left heel, unstageable; L97.519 Non-pressure chronic ulcer of other part of right foot with unspecified severity; K21.9 Gastro-esophageal reflux disease without esophagitis; D63.1 Anemia in chronic kidney disease; M19.91 Primary osteoarthritis, unspecified site; R79.1 Abnormal coagulation profile; R26.9 Unspecified abnormalities of gait and mobility; H91.90 Unspecified hearing loss, unspecified ear; H54.7 Unspecified visual loss; R53.1 Weakness; Z85.46 Personal history of malignant neoplasm of prostate; Z86.73 Personal history of transient ischemic attack (TIA), and cerebral infarction without residual deficits; Z87.891 Personal history of nicotine dependence; Z83.3 Family history of diabetes mellitus; Z88.0 Allergy status to penicillin; Z92.3 Personal history of irradiation; Z86.19 Personal history of other infectious and parasitic diseases; Z90.49 Acquired absence of other specified parts of digestive tract; Z79.01 Long term (current) use of anticoagulants; Z79.4 Long term (current) use of insulin; Z79.891 Long term (current) use of opiate analgesic; Z79.899 Other long term (current) drug therapy; Z98.42 Cataract extraction status, left eye; Z98.41 Cataract extraction status, right eye
CPT/HCPCS: 36415; 71010; 80048; 80053; 82550; 82553; 83036; 83735; 83880; 84134; 84484; 85025; 85610; 85652; 85730; 93005; 93923; 94640; 94660; 94760; 96374; 96375; 99291

== ENCOUNTER 2016-11-02 13:23 | Inpatient (IN) | payer MEDICARE ==
[2016-11-02] MEDS ORDERED: FUROSEMIDE 10 MG/ML 4 ML VIAL IV STA (13:25)
--- NOTE | 2016-11-02 13:48 | ED ---
General Adult HPI - General Stated complaint: Diff breathing Time Seen by Provider: 11/02/16 13:23 Source: RN notes reviewed - History of Present Illness Initial comments: This is a 76-year-old male who presents emergency Department with past medical history significant for CHF. Patient comes in today because last night he started having difficulty breathing in the difficulty breathing worsened since then. Patient states she's had a 9 pound gain over the last few days. Patient notices increased edema in bilateral legs. Patient denies any chest pain or palpitations. Patient denies any significant cough. Patient denies any recent fever or chills. Patient denies any lightheadedness dizziness or near syncopal episode. Patient denies headache patient denies numbness or weakness. Patient denies any abdominal pain patient denies any nausea vomiting diarrhea. Patient denies any recent injury or trauma. - Related Data Home Medications Medication Instructions Recorded Confirmed Melatonin 3 mg PO HS 11/02/16 11/02/16 Multivitamins, Thera [Multivitamin] 1 tab PO DAILY 11/02/16 11/02/16 Previous Rx's Medication Instructions Recorded Albuterol Nebulized [Ventolin 2.5 mg INHALATION RT-QID #0 10/16/16 Nebulized] Atorvastatin [Lipitor] 20 mg PO HS tab 10/16/16 Cholecalciferol [Vitamin D3] 1,000 unit PO 1200 tab 10/16/16 Collagenase [Santyl] 1 applic TOPICAL HS applic 10/16/16 Ferrous Sulfate [Iron (65 MG 325 mg PO W/SUPPER tab 10/16/16 Elemental)] Furosemide [Lasix] 40 mg PO DAILY #1 tablet 10/16/16 Gabapentin [Neurontin] 100 mg PO TID cap 10/16/16 INSULIN LISPRO (humaLOG) [humaLOG 9 unit SQ AC-TID vial 10/16/16 (formulary)] Insulin Glargine [Lantus] 35 unit SQ HS vial 10/16/16 Metoprolol Tartrate [Lopressor] 50 mg PO BID tab 10/16/16 Pantoprazole [Protonix] 40 mg PO AC-BRKFST tablet. 10/16/16 Warfarin [Coumadin] 2.5 mg PO DAILY #0 10/16/16 hydrALAZINE HCL [Apresoline] 50 mg PO TID tab 10/16/16 oxyCODONE HCL/ACETAMINOPHEN 1 tab PO Q6HR PRN #20 tab 10/17/16 [Percocet 5-325 mg] Allergies Allergy/AdvReac Type Severity Reaction Status Date / Time Penicillins Allergy Rash/Hives Verified 10/11/16 11:32 Review of Systems ROS Statement: Those systems with pertinent positive or pertinent negative responses have been documented in the HPI. ROS Other: All systems not noted in ROS Statement are negative. Past Medical History Past Medical History: Cancer, Heart Failure, CVA/TIA, Diabetes Mellitus, Hyperlipidemia, Hypertension, Osteoarthritis (OA) Additional Past Medical History / Comment(s): PROSTATE CANCER-"IMPLANTS AND RADIATION TX FOR 8 WEEKS 5 DAYS A WEEK", EDEMA RIGHT LEG, USES A WHEELCHAIR"NO WT BEARING BUT ABLE TO SLIDE FROM BEG INTO HIS W/C", HOME 02 2 LITERS N/C, NEUROPATHY, SORES ON RT FOOT AND LT HEEL STATED "CLEANING WITH ALCOHOL AND KEPT DRY" History of Any Multi-Drug Resistant Organisms: None Reported Past Surgical History: Appendectomy, Back Surgery Additional Past Surgical History / Comment(s): kidney biopsy-"neg", abner cataracts Past Anesthesia/Blood Transfusion Reactions: No Reported Reaction Past Psychological History: No Psychological Hx Reported Additional Psychological History / Comment(s): pt lives in his own home,uses w/ c to get around. has visitng nurses.pt and family comes in to assist pt as well. He is single. Remote history of tobacco use. No current alcohol use. 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 No other international travel no illnesses during his service. No animal exposures Smoking Status: Former smoker Past Alcohol Use History: None Reported Additional Past Alcohol Use History / Comment(s): 1975 quit in [place] same year Past Drug Use History: None Reported - Past Family History Mother Family Medical History: Diabetes Mellitus Father Family Medical History: Diabetes Mellitus General Exam - General Exam Comments Initial Comments: GENERAL: Patient is well-developed and well-nourished. Patient is nontoxic and well- hydrated and is in no acute distress. ENT: Neck is soft and supple. No significant lymphadenopathy is noted. Oropharynx is clear. Moist mucous membranes. Neck has full range of motion without eliciting any pain. EYES: The sclera were anicteric and conjunctiva were pink and moist. Extraocular movements were intact and pupils were equal round and reactive to light. Eyelids were unremarkable. PULMONARY: Crackles in the bases more the right than the left CARDIOVASCULAR: Irregular heartbeat ABDOMEN: Soft and nontender with normal bowel sounds. No palpable organomegaly was noted. There is no palpable pulsatile mass. SKIN: Skin is clear with no lesions or rashes and otherwise unremarkable. NEUROLOGIC: Patient is alert and oriented x3. Cranial nerves II through XII are grossly intact. Motor and sensory are also intact. Normal speech, volume and content. Symmetrical smile. MUSCULOSKELETAL: Normal extremities with adequate strength and full range of motion. 2+ edema bilaterally LYMPHATICS: No significant lymphadenopathy is noted PSYCHIATRIC: Normal psychiatric evaluation. Course Vital Signs 11/02/16 11/02/16 13:29 13:40 Temperature 97.9 F Pulse Rate 64 Respiratory 22 24 Rate Blood Pressure 180/81 O2 Sat by Pulse 89 L Oximetry Medical Decision Making - Medical Decision Making EKG shows atrial fibrillation at 70 bpm QRS is 86 QT interval 390 QTC is 444. Patient's EKG shows no ST segment elevation or depression or T-wave abdomen is noted. Chest x-ray shows pulmonary edema. Patient was placed on BiPAP he stated that the BiPAP did help him breathe and he felt a bit better. I also gave the patient Lasix. I spoke with Dr. Schmitz admitted the patient to continue Lasix on the floor K Nitropaste on the floor and continue BiPAP on the floor. Cardiology was consult. - Lab Data Result diagrams: 11/02/16 13:43 11/02/16 13:43 Lab Results 11/02/16 11/02/16 11/02/16 Range/Units 13:43 13:43 13:43 WBC 7.9 (3.8-10.6) k/uL RBC 3.31 L (4.30-5.90) m/uL Hgb 9.2 L (13.0-17.5) gm/dL Hct 31.5 L (39.0-53.0) % MCV 95.1 (80.0-100.0) fL MCH 27.8 (25.0-35.0) pg MCHC 29.2 L (31.0-37.0) g/dL RDW 16.4 H (11.5-15.5) % Plt Count 288 (150-450) k/uL Neutrophils % 81 % Lymphocytes % 11 % Monocytes % 5 % Eosinophils % 2 % Basophils % 0 % Neutrophils # 6.4 (1.3-7.7) k/uL Lymphocytes # 0.9 L (1.0-4.8) k/uL Monocytes # 0.4 (0-1.0) k/uL Eosinophils # 0.2 (0-0.7) k/uL Basophils # 0.0 (0-0.2) k/uL Hypochromasia Marked Anisocytosis Slight PT (9.0-12.0) sec INR (<1.1) APTT (22.0-30.0) sec Sodium 144 (137-145) mmol/L Potassium 5.2 H (3.5-5.1) mmol/L Chloride 106 (98-107) mmol/L Carbon Dioxide 25 (22-30) mmol/L Anion Gap 13 mmol/L BUN 55 H (9-20) mg/dL Creatinine 1.66 H (0.66-1.25) mg/dL Est GFR (MDRD) Af Amer 49 (>60 ml/min/1.73 sqM) Est GFR (MDRD) Non-Af 40 (>60 ml/min/1.73 sqM) Glucose 192 H (74-99) mg/dL Calcium 8.7 (8.4-10.2) mg/dL Total Bilirubin 0.9 (0.2-1.3) mg/dL AST 17 (17-59) U/L ALT 28 (21-72) U/L Alkaline Phosphatase 210 H (38-126) U/L Total Creatine Kinase 32 L (55-170) U/L CK-MB (CK-2) 2.2 (0.0-2.4) ng/mL CK-MB (CK-2) Rel Index 6.9 Troponin I <0.012 (0.000-0.034) ng/mL NT-Pro-B Natriuret Pep pg/mL Total Protein 6.9 (6.3-8.2) g/dL Albumin 3.4 L (3.5-5.0) g/dL 11/02/16 11/02/16 Range/Units 13:43 13:43 WBC (3.8-10.6) k/uL RBC (4.30-5.90) m/uL Hgb (13.0-17.5) gm/dL Hct (39.0-53.0) % MCV (80.0-100.0) fL MCH (25.0-35.0) pg MCHC (31.0-37.0) g/dL RDW (11.5-15.5) % Plt Count (150-450) k/uL Neutrophils % % Lymphocytes % % Monocytes % % Eosinophils % % Basophils % % Neutrophils # (1.3-7.7) k/uL Lymphocytes # (1.0-4.8) k/uL Monocytes # (0-1.0) k/uL Eosinophils # (0-0.7) k/uL Basophils # (0-0.2) k/uL Hypochromasia Anisocytosis PT 16.8 H (9.0-12.0) sec INR 1.7 (<1.1) APTT 27.3 (22.0-30.0) sec Sodium (137-145) mmol/L Potassium (3.5-5.1) mmol/L Chloride (98-107) mmol/L Carbon Dioxide (22-30) mmol/L Anion Gap mmol/L BUN (9-20) mg/dL Creatinine (0.66-1.25) mg/dL Est GFR (MDRD) Af Amer (>60 ml/min/1.73 sqM) Est GFR (MDRD) Non-Af (>60 ml/min/1.73 sqM) Glucose (74-99) mg/dL Calcium (8.4-10.2) mg/dL Total Bilirubin (0.2-1.3) mg/dL AST (17-59) U/L ALT (21-72) U/L Alkaline Phosphatase (38-126) U/L Total Creatine Kinase (55-170) U/L CK-MB (CK-2) (0.0-2.4) ng/mL CK-MB (CK-2) Rel Index Troponin I (0.000-0.034) ng/mL NT-Pro-B Natriuret Pep 7200 pg/mL Total Protein (6.3-8.2) g/dL Albumin (3.5-5.0) g/dL Critical Care Time Critical Care Time: Yes Total Critical Care Time: 35 Disposition Clinical Impression: Acute pulmonary edema Disposition: ADMITTED IP TO THIS [facility] Time of Disposition: 15:29
[2016-11-02 14:00] LABS: Anisocytosis Slight; Basophils % (A) 0 %; CH 27.2; CHCM 28.7; Eosinophils # (A) 0.2 k/uL (0-0.7); Eosinophils % (A) 2 %; HCT 31.5 % (39.0-53.0); HDW 3.16; HGB 9.2 gm/dL (13.0-17.5); Hypochromasia Marked; Luc # (Auto) 0.07; Luc % (Auto) 1; Lymphocytes # (A) 0.9 k/uL (1.0-4.8); Lymphocytes % (A) 11 %; MCH 27.8 pg (25.0-35.0); MCHC 29.2 g/dL (31.0-37.0); MCV 95.1 fL (80.0-100.0); Mean Platelet Volume 7.6; Monocytes # (A) 0.4 k/uL (0-1.0); Monocytes % (A) 5 %; Neutrophils # (A) 6.4 k/uL (1.3-7.7); Neutrophils % (A) 81 %; RBC 3.31 m/uL (4.30-5.90); RDW 16.4 % (11.5-15.5); WBC 7.9 k/uL (3.8-10.6); WBC (Perox) 8.35
[2016-11-02 14:10] LABS: INR 1.7 (<1.1); Prothrombin Time 16.8 sec (9.0-12.0)
[2016-11-02 14:11] LABS: Partial Thromboplastin Time 27.3 sec (22.0-30.0)
--- NOTE | 2016-11-02 14:12 | XR ---
EXAMINATION TYPE: XR chest 2V DATE OF EXAM: 11/02/2016 2:07 PM COMPARISON: 10/11/16 HISTORY: Shortness of breath FINDINGS: Noted is pulmonary venous congestion with scattered interstitial infiltrates. There is also cardiomegaly and small effusions. IMPRESSION: Findings compatible with interstitial edema. Infiltrates of other etiology are not excluded. Clinic al correlation and progress studies are recommended.
[2016-11-02 14:15] LABS: Calcium 8.7 mg/dL (8.4-10.2); Potassium 5.2 mmol/L (3.5-5.1); Total Bilirubin 0.9 mg/dL (0.2-1.3); Total Protein 6.9 g/dL (6.3-8.2)
[2016-11-02 14:19] LABS: Creatine Kinase 32 U/L (55-170)
[2016-11-02 14:32] LABS: Creatine Kinase MB 2.2 ng/mL (0.0-2.4); Troponin I <0.012 ng/mL (0.000-0.034)
[2016-11-02] MEDS ORDERED: FUROSEMIDE 10 MG/ML 4 ML VIAL IV SCH ×2 (15:30→22:00)
[2016-11-02 16:55] LABS: Glucose,Whole Blood 199 mg/dL (75-99)
[2016-11-02] MEDS: NITROGLYCERIN OINT 1 INCH/GM PACKET TOPICAL SCH ×2 (17:08→21:47)
[2016-11-02 21:05] LABS: Glucose,Whole Blood 160 mg/dL (75-99)
[2016-11-02] MEDS ORDERED: ALBUTEROL NEBULIZED 2.5 MG/3 ML INHALATION PRN (21:33)
[2016-11-02] MEDS: MELATONIN 3 MG TABLET PO SCH (21:38)
[2016-11-02] MEDS: FERROUS SULFATE 325 MG TAB PO SCH (21:38)
[2016-11-02] MEDS: GABAPENTIN 100 MG CAP PO SCH (21:38)
[2016-11-02] MEDS: METOPROLOL TARTRATE 50 MG TAB PO SCH (21:38)
[2016-11-02] MEDS: hydrALAZINE HCL 50 MG TAB PO SCH (21:38)
[2016-11-02] MEDS: INSULIN GLARGINE 100 UNIT/ML 10 ML VIAL SQ SCH (21:42)
[2016-11-02] MEDS: ATORVASTATIN 20 MG TAB PO SCH (21:43)
[2016-11-02] MEDS: oxyCODONE-APAP 5-325MG 1 EACH TAB PO PRN (21:47)
[2016-11-02] MEDS: LORazepam 0.5 MG TAB PO PRN (21:49)
[2016-11-02] MEDS: COLLAGENASE 250 UNIT/GM OINTMENT 30 GM TUBE TOPICAL SCH (22:29)
[2016-11-02] MEDS: WARFARIN 5 MG TAB PO SCH (22:45)
[2016-11-03] MEDS: FUROSEMIDE 250 MG in SODIUM CHLORIDE 0.9% 225 ML IVP SCH ×2 (00:03→16:59)
[2016-11-03 03:32] LABS: Glucose,Whole Blood 156 mg/dL (75-99)
[2016-11-03 06:29] LABS: Glucose,Whole Blood 136 mg/dL (75-99)
[2016-11-03 06:34] LABS: INR 1.8 (<1.1); Prothrombin Time 17.7 sec (9.0-12.0)
[2016-11-03 06:40] LABS: Calcium 8.6 mg/dL (8.4-10.2); Magnesium 2.2 mg/dL (1.6-2.3); Potassium 4.6 mmol/L (3.5-5.1)
[2016-11-03] MEDS: PANTOPRAZOLE 40 MG TABLET PO SCH (06:52)
[2016-11-03] MEDS: oxyCODONE-APAP 5-325MG 1 EACH TAB PO PRN ×2 (06:56→14:01)
--- NOTE | 2016-11-03 07:47 | HP ---
DATE OF ADMISSION: 11/02/2016 PRESENTING COMPLAINT: Shortness of breath. HISTORY OF PRESENTING COMPLAINT: This is a 76-year-old patient with an extensive medical history. Patient was just discharged from the hospital on 10/17/2016. 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 The patient is currently a resident of [facility]. Also being followed by Dr. Muro from vascular surgery. Patient presents with worsening shortness of breath. Denies any cough. Edema is also present. Diet is fair. REVIEW OF SYSTEMS: CONSTITUTIONAL: Tired. HEENT: None. RESPIRATORY: Short of breath. Minimal cough. CARDIOVASCULAR: Edema. GASTROINTESTINAL: None. GENITOURINARY: None. MUSCULOSKELETAL: Aches and pains in the joints. DERMATOLOGICAL: Wound on the left heel and gangrene changes of right big toe and right 4th toe. HEMATOLOGICAL: None. PSYCHIATRY: None. NEUROLOGICAL: None. PAST MEDICAL HISTORY: CHF, chronic kidney disease, peripheral artery disease, anemia of chronic disease, obesity, diabetes mellitus type 2, hypertension, hyperlipidemia, primary osteoarthritis, chronic respiratory failure, hypertensive heart disease, dry gangrene of right big toe and right 4th toe. PAST SURGICAL HISTORY: Appendectomy, back surgery, kidney biopsy was negative, bilateral cataract surgery. 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 No smoking. No major alcohol history. Resident of [facility]. FAMILY HISTORY: Diabetes mellitus type 2. HOME MEDICATIONS: 1. Ativan 0.5 p.o. at bedtime p.r.n. 2. Ventolin 2.5 every 4 p.r.n. 3. Coumadin 5 mg p.o. and 2.5. 4. Percocet 5 one tablet every 6 p.r.n. 5. Hydralazine 50 mg p.o. t.i.d. 6. Protonix 40 mg with breakfast. 7. Multivitamin 1 tablet p.o. daily. 8. Lopressor 50 mg b.i.d. 9. Melatonin 3 mg at bedtime. 10. Lantus 75 units subcu at bedtime. 11. Humalog 9 units subcutaneous t.i.d. 12. Neurontin 100 mg p.o. t.i.d. 13. Lasix 40 mg p.o. daily. 14. Iron 325 mg p.o. with supper. 15. Santyl topical at bedtime. 16. Vitamin D3, 1000 units p.o. noon. 17. Lipitor 20 mg at bedtime. 18. Ventolin 2.5 q.i.d. ALLERGIES: PENICILLIN. On examination, temperature 97.9, pulse 84, respiration 22, blood pressure 180/81, pulse ox 89% on 4 liters. GENERAL APPEARANCE: Morbidly obese; BMI of 44.6. Lying in bed, short of breath at rest. EYES: Pupils equal. Conjunctivae normal. HEENT: External appearance of nose and ears" normal. NECK: Short, thick, JVD is able to be assessed. Respiratory effort increased. LUNGS: Diminished breath sounds. CARDIOVASCULAR: First and second sounds normal. No edema present. ABDOMEN: Distended, soft. Liver and spleen palpable. LYMPHATIC: No lymph node palpable in neck or axillae. PSYCHIATRY: Alert and oriented x3. Mood and affect normal. NEUROLOGICAL: Pupils equal. Cranial grossly intact. Power and sensation grossly intact. Foot drop of both feet. DERMATOLOGICAL: The patient has a dry gangrenous decub ulcer on the left heel. Right foot first and fourth toe dry gangrene. INVESTIGATIONS: White count 7.9, hemoglobin 9.2, BUN 55, creatinine 1.66. BUN and creatinine 56 and 1.74 on 10/17/2016. ProBNP 7200. Chest x-ray shows pulmonary edema with pleural effusion. ASSESSMENT: 1. Acute on chronic congestive heart failure exacerbation from diastolic dysfunction, ejection fraction 55% to 60%, from underlying hypertension. 2. Left heel decubitus ulcer, present on admission. 3. Chronic kidney disease, stage III, from nephrosclerosis. 4. Peripheral artery disease. 5. Anemia of chronic kidney disease. 6. Morbid obesity, body mass index of 43.4. 7. Diabetes mellitus type 2, chronically on insulin. 8. Essential hypertension. 9. Hyperlipidemia. 10. Primary osteoarthritis, multiple joints. 11. Chronic hypoxic respiratory failure, on home oxygen. 12. Acute hypoxic respiratory failure present at admission from congestive heart failure. 13. Hypertensive heart disease. 14. Dry gangrene of the right big toe and fourth toe, probably from underlying peripheral artery disease, present on admission. 15. Persistent atrial fibrillation, chronically anticoagulated on Coumadin. 16. Chronic medical debility from multiple problems, patient not able to carry out ADLs. PLAN: Patient has a significant amount of edema. We will put the patient on Lasix drip. Restrict input and output. INR will be closely followed. The patient has atrial fibrillation, currently heart rate is controlled. Home medications resumed. Wound care to continue as before. Overall prognosis is guarded.
[2016-11-03] MEDS: ALBUTEROL NEBULIZED 2.5 MG/3 ML INHALATION SCH ×4 (08:14→19:27)
--- NOTE | 2016-11-03 08:19 | P.NPCON ---
History of Present Illness - Reason for Consult chronic renal failure - History of Present Illness Reason for consultation: Acute kidney injury on chronic kidney disease History of present illness: Patient is a 76-year-old male seen in renal consultation for acute kidney injury on chronic kidney disease. Patient has chronic kidney disease stage III secondary to diabetic kidney disease with baseline creatinine in the range of 1.3-1.5. Creatinine on admission was 1.66 and is stable at 1.70 today. Patient presented with worsening edema in his lower extremities as well as dyspnea. He did have a weight gain of about 8 pounds recently. Currently is resting in bed and is quite difficult to awaken. He is currently maintained on Lasix drip and his urine output overnight was about 800 mL. No vomiting or diarrhea. He does have a history of diastolic CHF with severe pulmonary hypertension. Vital signs are stable. General: The patient appeared well nourished and normally developed. HEENT: Head exam is unremarkable. Neck is without jugular venous distension. LUNGS: Lungs are clear to auscultation and percussion. Breath sounds decreased. HEART: Rate and Rhythm are regular. First and second heart sounds normal. No murmurs, rubs or gallops. ABDOMEN: Abdominal exam reveals normal bowel sounds. Non-tender and non- distended. No evidence of peritonitis. EXTREMITITES: 2+ edema. Past Medical History Past Medical History: Cancer, Heart Failure, CVA/TIA, Diabetes Mellitus, Hyperlipidemia, Hypertension, Osteoarthritis (OA) Additional Past Medical History / Comment(s): PROSTATE CANCER-"IMPLANTS AND RADIATION TX FOR 8 WEEKS 5 DAYS A WEEK",, USES A WHEELCHAIR"NO WT BEARING BUT ABLE TO SLIDE FROM BEG INTO HIS W/C", HOME 02 2 LITERS N/C,NEUROPATHY,LT HEEL DECUB, RT FOOT DRY GANGRENE GREAT TOE AND 4TH TOE(PER RECENT SUMMARY) History of Any Multi-Drug Resistant Organisms: None Reported Past Surgical History: Appendectomy, Back Surgery Additional Past Surgical History / Comment(s): kidney biopsy-"neg", abner cataracts Past Anesthesia/Blood Transfusion Reactions: No Reported Reaction Past Psychological History: No Psychological Hx Reported Additional Psychological History / Comment(s): PT [facility] w/c to get around. He is single. Remote history of tobacco use. No current alcohol use. 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 No other international travel no illnesses during his service. No animal exposures Smoking Status: Former smoker Past Alcohol Use History: None Reported Additional Past Alcohol Use History / Comment(s): 1975 quit in [place] same year Past Drug Use History: None Reported - Past Family History Mother Family Medical History: Diabetes Mellitus Father Family Medical History: Diabetes Mellitus Medications and Allergies Home Medications Medication Instructions Recorded Confirmed Type Albuterol Nebulized [Ventolin 2.5 mg INHALATION Q4HR PRN 11/02/16 11/02/16 History Nebulized] LORazepam [Ativan] 0.5 mg PO HS PRN 11/02/16 11/02/16 History Melatonin 3 mg PO HS 11/02/16 11/02/16 History Multivitamins, Thera [Multivitamin] 1 tab PO DAILY 11/02/16 11/02/16 History Warfarin Sodium [Coumadin] 2.5 mg PO DIRECTED 11/02/16 11/02/16 History Warfarin [Coumadin] 5 mg PO DIRECTED 11/02/16 11/02/16 History Allergies Allergy/AdvReac Type Severity Reaction Status Date / Time Penicillins Allergy Rash/Hives Verified 10/11/16 11:32 Physical Exam Vitals: Vital Signs Temp Pulse Pulse Resp BP BP BP 11/03/16 04:00 77 18 120/64 11/03/16 00:00 97 F L 64 18 135/64 11/02/16 20:00 97.6 F 78 18 139/75 11/02/16 19:49 11/02/16 16:34 96.7 F L 70 16 140/70 11/02/16 15:44 11/02/16 15:43 97.9 F 66 18 151/67 11/02/16 15:41 70 142/63 Pulse Ox 11/03/16 04:00 97 11/03/16 00:00 97 11/02/16 20:00 99 11/02/16 19:49 99 11/02/16 16:34 99 11/02/16 15:44 100 11/02/16 15:43 100 11/02/16 15:41 100 Intake and Output 11/02/16 11/03/16 11/03/16 22:59 06:59 14:59 Intake Total 1400 Output Total 900 Balance 500 Intake: IV 1200 Furosemide 250 mg In 800 Sodium Chloride 0.9% 225 ml @ 10 MG/HR 10 mls/hr IVP .Q24H RODOLFO Rx#: [id number] NS 400 Oral 200 Output: Urine 900 Other: Voiding Method Urinal Urinal # Voids 0 Weight 138 kg Results - Lab Results Most recent lab results Calcium 8.6 mg/dL (8.4-10.2) 11/03/16 05:32 Magnesium 2.2 mg/dL (1.6-2.3) 11/03/16 05:32 11/02/16 13:43 11/03/16 05:32 Assessment and Plan Plan: Assessment: #1. Nonoliguric acute kidney injury secondary to cardiorenal syndrome. Creatinine up to 1.7 today. #2. Chronic kidney disease stage III with baseline creatinine in the range of 1.3-1.5 secondary to diabetic kidney disease. #3. Severe pulmonary hypertension. #4. Volume overload. #5. Anemia. Rule out iron deficiency. Plan: Increase Lasix drip to be run at 15 mL an hour. Add metolazone 5 mg twice daily. Low-salt diet. Check iron studies. Avoid nephrotoxic agents and hypotensive episodes. Check urinalysis Daily weights and strict I's and O's. Thank you for the consultation. I will continue to follow the patient with you during his hospital stay.
[2016-11-03] MEDS: NITROGLYCERIN OINT 1 INCH/GM PACKET TOPICAL SCH ×4 (08:42→21:12)
[2016-11-03] MEDS: GABAPENTIN 100 MG CAP PO SCH ×3 (08:42→21:12)
[2016-11-03] MEDS: METOPROLOL TARTRATE 50 MG TAB PO SCH ×2 (08:42→21:12)
[2016-11-03] MEDS: hydrALAZINE HCL 50 MG TAB PO SCH ×3 (08:42→21:12)
[2016-11-03 10:41] LABS: % Iron Saturation 12.2 % (20-50)
[2016-11-03 12:12] LABS: Glucose,Whole Blood 124 mg/dL (75-99)
[2016-11-03 12:14] LABS: Amorphous Sediment,Urine Rare /hpf; Appearance,Urine Clear (Clear); Bacteria,Urine Rare /hpf; Bilirubin,Urine Negative (Negative); Glucose,Urine (UA) Negative (Negative); Ketones,Urine Negative (Negative); Leukocyte Esterase,Urine Negative (Negative); Mucus,Urine Rare /hpf; Nitrite,Urine Negative (Negative); Particle Count 2588; Protein,Urine 1+ (Negative); Specific Gravity,Urine 1.006 (1.001-1.035); Squamous Epithelial Cell,Urine <1 /hpf (0-4); UA Billing (MACRO vs. MICRO) MICRO; Urobilinogen,Urine <2.0 mg/dL (<2.0)
[2016-11-03] MEDS: MULTIVITAMINS, THERA 1 EACH TAB PO SCH (13:22)
[2016-11-03] MEDS: METOLAZONE 5 MG TAB PO SCH ×2 (13:22→21:12)
[2016-11-03] MEDS: INSULIN LISPRO (humaLOG) 300 UNIT/3 ML VIAL SQ SCH ×3 (13:22→17:12)
[2016-11-03] MEDS: CHOLECALCIFEROL 1,000 UNIT TAB PO SCH (13:22)
--- NOTE | 2016-11-03 14:25 | P.CRDCN ---
<Nathalia Fuentes - Last Filed: 11/03/16 14:14> History of Present Illness Consult date: 11/03/16 Reason for Consult (text): Acute Pulmonary Edema Chief complaint: shortness of breath and edema History of present illness: This is a 76-year-old gentleman previously seen Dr. Patel in the office. She has a known history of heart failure, hyperlipidemia, diabetes mellitus, chronic kidney disease and hypertension. Presented to the emergency department with complaints of increasing shortness of breath and edema. Upon presentation, chest x-ray showed interstitial edema. Laboratory values were significant for BUN of 56, creatinine 1.7 and BNP of 7200. Troponin was negative at less than 0.012. EKG showed atrial fibrillation and patient anticoagulated on Coumadin He was started on a Lasix drip which has since been increased to 15 mg an hour by nephrology. Patient was placed on a BiPAP last night due to respiratory distress. He was noted to have an episode of bradycardia with heart rate dropping to 29 at around 3 AM while sleeping and BiPAP was offered at that time, BiPAP was placed back on the patient and he has since not had any bradycardic episodes. Upon examination this morning, patient is resting comfortably in bed. He feels he is breathing quite a bit better however continues to have complaints of edema. Denies complaints of palpitations, dizziness, lightheadedness, syncope or chest discomfort. Past Medical History Past Medical History: Cancer, Heart Failure, CVA/TIA, Diabetes Mellitus, Hyperlipidemia, Hypertension, Osteoarthritis (OA) Additional Past Medical History / Comment(s): PROSTATE CANCER-"IMPLANTS AND RADIATION TX FOR 8 WEEKS 5 DAYS A WEEK",, USES A WHEELCHAIR"NO WT BEARING BUT ABLE TO SLIDE FROM BEG INTO HIS W/C", HOME 02 2 LITERS N/C,NEUROPATHY,LT HEEL DECUB, RT FOOT DRY GANGRENE GREAT TOE AND 4TH TOE(PER RECENT SUMMARY) History of Any Multi-Drug Resistant Organisms: None Reported Past Surgical History: Appendectomy, Back Surgery Additional Past Surgical History / Comment(s): kidney biopsy-"neg", abner cataracts Past Anesthesia/Blood Transfusion Reactions: No Reported Reaction Past Psychological History: No Psychological Hx Reported Additional Psychological History / Comment(s): PT AT [facility] w/c to get around. He is single. Remote history of tobacco use. No current alcohol use. 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 No other international travel no illnesses during his service. No animal exposures Smoking Status: Former smoker Past Alcohol Use History: None Reported Additional Past Alcohol Use History / Comment(s): 1975 quit in [place] same year Past Drug Use History: None Reported - Past Family History Mother Family Medical History: Diabetes Mellitus Father Family Medical History: Diabetes Mellitus Medications and Allergies Home Medications Medication Instructions Recorded Confirmed Type Albuterol Nebulized [Ventolin 2.5 mg INHALATION Q4HR PRN 11/02/16 11/02/16 History Nebulized] LORazepam [Ativan] 0.5 mg PO HS PRN 11/02/16 11/02/16 History Melatonin 3 mg PO HS 11/02/16 11/02/16 History Multivitamins, Thera [Multivitamin] 1 tab PO DAILY 11/02/16 11/02/16 History Warfarin Sodium [Coumadin] 2.5 mg PO DIRECTED 11/02/16 11/02/16 History Warfarin [Coumadin] 5 mg PO DIRECTED 11/02/16 11/02/16 History Allergies Allergy/AdvReac Type Severity Reaction Status Date / Time Penicillins Allergy Rash/Hives Verified 10/11/16 11:32 Physical Exam Vitals: Vital Signs Temp Pulse Pulse Resp BP BP BP 11/03/16 12:00 97.1 F L 72 20 141/68 11/03/16 11:24 65 11/03/16 11:11 86 11/03/16 08:23 67 11/03/16 08:14 68 11/03/16 08:00 97.2 F L 73 20 151/64 11/03/16 04:00 77 18 120/64 11/03/16 00:00 97 F L 64 18 135/64 11/02/16 20:00 97.6 F 78 18 139/75 11/02/16 19:49 11/02/16 16:34 96.7 F L 70 16 140/70 11/02/16 15:44 11/02/16 15:43 97.9 F 66 18 151/67 11/02/16 15:41 70 142/63 Pulse Ox 11/03/16 12:00 97 11/03/16 11:24 11/03/16 11:11 11/03/16 08:23 11/03/16 08:14 11/03/16 08:00 96 11/03/16 04:00 97 11/03/16 00:00 97 11/02/16 20:00 99 11/02/16 19:49 99 11/02/16 16:34 99 11/02/16 15:44 100 11/02/16 15:43 100 11/02/16 15:41 100 Intake and Output 11/02/16 11/03/16 11/03/16 22:59 06:59 14:59 Intake Total 1400 660 Output Total 900 Balance 500 660 Intake: IV 1200 300 Furosemide 250 mg In 800 180 Sodium Chloride 0.9% 225 ml @ 15 MG/HR 15 mls/hr IVP .[id number] [facility] Rx#: [id number] NS 400 120 Oral 200 360 Output: Urine 900 Other: Voiding Method Urinal Urinal # Voids 0 1 # Bowel Movements 0 Weight 138 kg PHYSICAL EXAMINATION: HEENT: Head is atraumatic, normocephalic. Pupils equal, round. Neck is supple. There is no elevated jugular venous pressure. HEART EXAMINATION: Heart sounds irregularly irregular, S1 and S2 normal. No murmur or gallop heard. CHEST EXAMINATION: Lungs reveal diminished air entry. No chest wall tenderness is noted on palpation or with deep breathing. ABDOMEN: Soft, obese, nontender. Bowel sounds are heard. No organomegaly noted. EXTREMITIES: 2+ peripheral pulses with evidence of 2+ peripheral edema and no calf tenderness noted. NEUROLOGIC patient is awake, alert and oriented x3. . Results 11/02/16 13:43 11/03/16 05:32 Coagulation 11/03/16 Range/Units 05:32 PT 17.7 H (9.0-12.0) sec Comprehensive Metabolic Panel 11/03/16 Range/Units 05:32 Sodium 144 (137-145) mmol/L Potassium 4.6 (3.5-5.1) mmol/L Chloride 106 (98-107) mmol/L Carbon Dioxide 27 (22-30) mmol/L BUN 56 H (9-20) mg/dL Creatinine 1.70 H (0.66-1.25) mg/dL Glucose 136 H (74-99) mg/dL Calcium 8.6 (8.4-10.2) mg/dL Current Medications Generic Name Dose Route Start Last Admin Trade Name Freq PRN Reason Stop Dose Admin Albuterol Sulfate 2.5 mg 11/03/16 08:00 11/03/16 11:11 Ventolin Nebulized INHALATION 2.5 mg RT-QID [facility] Administration Albuterol Sulfate 2.5 mg 11/02/16 21:33 Ventolin Nebulized INHALATION Q4HR PRN Shortness Of Breath Or Wheezing Atorvastatin Calcium 20 mg 11/02/16 21:15 11/02/16 21:43 Lipitor PO 20 mg HS [facility] Administration Cholecalciferol 1,000 unit 11/03/16 12:00 11/03/16 13:22 Vitamin D3 PO 1,000 unit 1200 [facility] Administration Collagenase 1 applic 11/02/16 21:15 11/02/16 22:29 Santyl TOPICAL 1 applic HS [facility] Administration Ferrous Sulfate 325 mg 11/02/16 21:15 11/02/16 21:38 Feosol PO 325 mg W/SUPPER [facility] Administration Gabapentin 100 mg 11/02/16 22:00 11/03/16 08:42 Neurontin PO 100 mg TID [facility] Administration Hydralazine HCl 50 mg 11/02/16 22:00 11/03/16 08:42 Apresoline PO 50 mg TID [facility] Administration Furosemide 250 mg/ Sodium 250 mls @ 15 mls/hr 11/02/16 23:00 11/03/16 00:03 Chloride IVP 10 mg/hr .[id number] [facility] 10 mls/hr 15 MG/HR Administration Insulin Glargine 35 unit 11/02/16 21:15 11/02/16 21:42 Lantus SQ 35 unit HS [facility] Administration Insulin Human Lispro 9 unit 11/03/16 07:30 11/03/16 13:30 Humalog SQ Not Given AC-TID [facility] Lorazepam 0.5 mg 11/02/16 21:33 11/02/16 21:49 Ativan PO 0.5 mg HS PRN Administration Anxiety Melatonin 3 mg 11/02/16 21:15 11/02/16 21:38 Melatonin PO 3 mg HS [facility] Administration Metolazone 5 mg 11/03/16 09:00 11/03/16 13:22 Zaroxolyn PO 5 mg BID [facility] Administration Metoprolol Tartrate 50 mg 11/02/16 21:15 11/03/16 08:42 Lopressor PO 50 mg BID [facility] Administration Multivitamins 1 each 11/03/16 12:00 11/03/16 13:22 Theragran PO 1 each DAILY@1200 [facility] Administration Nitroglycerin 1 inch 11/02/16 18:00 11/03/16 13:22 Nitro-Bid Oint TOPICAL 1 inch QID [facility] Administration Oxycodone/Acetaminophen 1 each 11/02/16 21:04 11/03/16 14:01 Percocet 5-325 PO 1 each Q6HR PRN Administration Pain Pantoprazole Sodium 40 mg 11/03/16 07:30 11/03/16 06:52 Protonix PO 40 mg [id number] [facility] Administration Warfarin Sodium 2.5 mg 11/04/16 18:00 Coumadin PO SuSa [facility] Warfarin Sodium 5 mg 11/02/16 21:45 11/02/16 22:45 Coumadin PO 5 mg [id number]@1800 [facility] Administration Intake and Output 11/02/16 11/03/16 11/03/16 22:59 06:59 14:59 Intake Total 1400 660 Output Total 900 Balance 500 660 Intake: IV 1200 300 Furosemide 250 mg In 800 180 Sodium Chloride 0.9% 225 ml @ 15 MG/HR 15 mls/hr IVP .[id number] [facility] Rx#: [id number] NS 400 120 Oral 200 360 Output: Urine 900 Other: Voiding Method Urinal Urinal # Voids 0 1 # Bowel Movements 0 Weight 138 kg 11/03/16 05:32 Assessment and Plan Plan: Assessment and plan #1 acute on chronic kidney injury #2 pulmonary edema #3 acute on chronic congestive heart failure, last known ejection fraction in August 55-60% #4 chronic foot ulcers #5 chronic atrial fibrillation From cardiology standpoint, we agree with Diallo dorantes per nephrology. We will continue to monitor the patient's renal function, intake and output as well as daily weights. Further recommendations to follow. [employer] note has been reviewed, I agree with a documented findings and plan of care. Patient was seen and examined. <Wilmer Mchugh - Last Filed: 11/04/16 08:15> Physical Exam Vitals: Vital Signs Temp Pulse Pulse Resp BP Pulse Ox 11/04/16 04:00 98.0 F 71 18 138/62 96 11/04/16 00:00 96.9 F L 69 18 179/74 96 11/03/16 20:00 97.2 F L 70 18 159/68 98 11/03/16 19:39 80 11/03/16 19:27 80 11/03/16 16:45 97.2 F L 75 18 128/60 100 11/03/16 16:00 96.9 F L 63 20 148/64 97 11/03/16 15:50 76 11/03/16 15:38 76 11/03/16 12:00 97.1 F L 72 20 141/68 97 11/03/16 11:24 65 11/03/16 11:11 86 11/03/16 08:23 67 Intake and Output 11/03/16 11/04/16 11/04/16 22:59 06:59 14:59 Intake Total 409.333 240 Output Total 200 800 Balance 209.333 -560 Intake: Intake, IV Titration 169.333 Amount Furosemide 250 mg In 169.333 Sodium Chloride 0.9% 225 ml @ 15 MG/HR 15 mls/hr IVP .[id number] [facility] Rx#: [id number] Oral 240 240 Output: Urine 200 800 Other: Voiding Method Urinal # Voids 1 Weight 129 kg Results 11/02/16 13:43 11/03/16 05:32 Current Medications Generic Name Dose Route Start Last Admin Trade Name Freq PRN Reason Stop Dose Admin Albuterol Sulfate 2.5 mg 11/03/16 08:00 11/03/16 19:27 Ventolin Nebulized INHALATION 2.5 mg RT-QID [facility] Administration Albuterol Sulfate 2.5 mg 11/02/16 21:33 Ventolin Nebulized INHALATION Q4HR PRN Shortness Of Breath Or Wheezing Atorvastatin Calcium 20 mg 11/02/16 21:15 11/03/16 21:11 Lipitor PO 20 mg HS [facility] Administration Cholecalciferol 1,000 unit 11/03/16 12:00 11/03/16 13:22 Vitamin D3 PO 1,000 unit 1200 [facility] Administration Collagenase 1 applic 11/02/16 21:15 11/03/16 21:11 Santyl TOPICAL 1 applic HS [facility] Administration Ferrous Sulfate 325 mg 11/02/16 21:15 11/03/16 17:02 Feosol PO 325 mg W/SUPPER [facility] Administration Gabapentin 100 mg 11/02/16 22:00 11/03/16 21:12 Neurontin PO 100 mg TID [facility] Administration Hydralazine HCl 50 mg 11/02/16 22:00 11/03/16 21:12 Apresoline PO 50 mg TID [facility] Administration Furosemide 250 mg/ Sodium 250 mls @ 15 mls/hr 11/02/16 23:00 11/03/16 16:59 Chloride IVP 10 mg/hr .[id number] [facility] 10 mls/hr 15 MG/HR Administration Insulin Glargine 35 unit 11/02/16 21:15 11/03/16 21:12 Lantus SQ 35 unit HS [facility] Administration Insulin Human Lispro 9 unit 11/03/16 07:30 11/04/16 07:29 Humalog SQ 9 unit AC-TID [facility] Administration Lorazepam 0.5 mg 11/02/16 21:33 11/02/16 21:49 Ativan PO 0.5 mg HS PRN Administration Anxiety Melatonin 3 mg 11/02/16 21:15 11/03/16 21:12 Melatonin PO 3 mg HS [facility] Administration Metolazone 5 mg 11/03/16 09:00 11/03/16 21:12 Zaroxolyn PO 5 mg BID [facility] Administration Metoprolol Tartrate 50 mg 11/02/16 21:15 11/03/16 21:12 Lopressor PO 50 mg BID [facility] Administration Multivitamins 1 each 11/03/16 12:00 11/03/16 13:22 Theragran PO 1 each DAILY@1200 [facility] Administration Nitroglycerin 1 inch 11/02/16 18:00 11/03/16 21:12 Nitro-Bid Oint TOPICAL 1 inch QID [facility] Administration Oxycodone/Acetaminophen 1 each 11/02/16 21:04 11/03/16 14:01 Percocet 5-325 PO 1 each Q6HR PRN Administration Pain Pantoprazole Sodium 40 mg 11/03/16 07:30 11/04/16 07:30 Protonix PO 40 mg AC-BRKFST [facility] Administration Warfarin Sodium 2.5 mg 11/04/16 18:00 Coumadin PO SuSa [facility] Warfarin Sodium 5 mg 11/02/16 21:45 11/03/16 17:03 Coumadin PO 5 mg [id number]@1800 [facility] Administration Intake and Output 11/03/16 11/04/16 11/04/16 22:59 06:59 14:59 Intake Total 409.333 240 Output Total 200 800 Balance 209.333 -560 Intake: Intake, IV Titration 169.333 Amount Furosemide 250 mg In 169.333 Sodium Chloride 0.9% 225 ml @ 15 MG/HR 15 mls/hr IVP .[id number] [facility] Rx#: [id number] Oral 240 240 Output: Urine 200 800 Other: Voiding Method Urinal # Voids 1 Weight 129 kg 11/03/16 05:32
[2016-11-03 16:49] LABS: Glucose,Whole Blood 122 mg/dL (75-99)
[2016-11-03] MEDS: FERROUS SULFATE 325 MG TAB PO SCH (17:02)
[2016-11-03] MEDS: WARFARIN 5 MG TAB PO SCH (17:03)
[2016-11-03] MEDS ORDERED: WARFARIN 2.5 MG TAB PO SCH (18:00)
[2016-11-03 20:53] LABS: Glucose,Whole Blood 120 mg/dL (75-99)
[2016-11-03] MEDS: COLLAGENASE 250 UNIT/GM OINTMENT 30 GM TUBE TOPICAL SCH (21:11)
[2016-11-03] MEDS: ATORVASTATIN 20 MG TAB PO SCH (21:11)
[2016-11-03] MEDS: INSULIN GLARGINE 100 UNIT/ML 10 ML VIAL SQ SCH (21:12)
[2016-11-03] MEDS: MELATONIN 3 MG TABLET PO SCH (21:12)
--- NOTE | 2016-11-03 22:07 | PN ---
DATE OF SERVICE: 11/03/2016 INTERVAL HISTORY: This patient admitted with CHF exacerbation, started diuresis. He was seen by Nephrology earlier today. Lasix dose was increased to 50 mg and metolazone was added. The patient breathing a shade better. Edema is still present. Review of symptoms for constitutional, cardiovascular, GI, pulmonary; relevant findings as above. Current medications include a Lasix drip at 15 mg/h. On examination, temperature 96.9, pulse 63 respirations 20, blood pressure 140/64, pulse ox 97% on 4L. GENERAL APPEARANCE: Sitting up, tired-appearing. EYES: Pupils equal normal. NECK: JVD unable to assess. Mass not palpable. RESPIRATORY: Effort increased. Diminished breath sounds. CARDIOVASCULAR: First and second sounds normal. Edema is present. ABDOMEN: Distended, soft. Liver and spleen not palpable. PSYCHIATRY: Alert and oriented x3. Mood and affect were normal. INVESTIGATIONS: BUN 56, creatinine 1.70. ASSESSMENT: 1. Acute on chronic congestive heart failure exacerbation from diastolic dysfunction, ejection fraction 55% to 60%, underlying hypertension. 2. Left heel decubitus ulcer, present on admission. 3. Chronic kidney stage 3 from nephrosclerosis. 4. Peripheral artery disease. 5. Anemia of chronic kidney disease. 6. Morbid obesity; body mass index of 43.4. 7. Diabetes mellitus type 2, chronically on insulin. 8. Essential hypertension. 9. Hyperlipidemia. 10. Primary osteoarthritis of multiple joints. 11. Chronic hypoxic respiratory failure on home oxygen. 12. Acute hypoxic respiratory failure, present at admission from congestive heart failure. 13. Hypertensive heart disease. 14. Dry gangrene of the right toe and 4th toe, probably from underlying peripheral artery disease, present on admission. 15. Persistent atrial fibrillation, chronically anticoagulated on Coumadin. 16. Chronic medical debility from multiple problems. Patient not able to carry out activities of daily living. PLAN: Continue current medication and treatment plan. Will put the patient on strict I's and O's. Care was discussed with the patient. Will also use Jorge A wraps.
[2016-11-04 06:32] LABS: Glucose,Whole Blood 127 mg/dL (75-99)
[2016-11-04] MEDS: INSULIN LISPRO (humaLOG) 300 UNIT/3 ML VIAL SQ SCH ×3 (07:29→17:36)
[2016-11-04] MEDS: PANTOPRAZOLE 40 MG TABLET PO SCH (07:30)
[2016-11-04 08:28] LABS: Calcium 8.7 mg/dL (8.4-10.2); Potassium 4.5 mmol/L (3.5-5.1)
[2016-11-04] MEDS: ALBUTEROL NEBULIZED 2.5 MG/3 ML INHALATION SCH ×4 (08:44→19:21)
[2016-11-04] MEDS: FUROSEMIDE 250 MG in SODIUM CHLORIDE 0.9% 225 ML IVP SCH (09:10)
[2016-11-04] MEDS: hydrALAZINE HCL 50 MG TAB PO SCH ×3 (09:39→22:00)
[2016-11-04] MEDS: NITROGLYCERIN OINT 1 INCH/GM PACKET TOPICAL SCH ×4 (09:39→22:01)
[2016-11-04] MEDS: GABAPENTIN 100 MG CAP PO SCH ×3 (09:39→22:00)
[2016-11-04] MEDS: METOLAZONE 5 MG TAB PO SCH ×2 (09:39→22:00)
[2016-11-04] MEDS: METOPROLOL TARTRATE 50 MG TAB PO SCH ×2 (09:39→23:53)
--- NOTE | 2016-11-04 09:50 | P.PN ---
Subjective Patient is seen in follow-up for acute kidney injury. Renal function is stable with creatinine at 1.68 today. Patient presented with edema and dyspnea. Overall improving. He does have history of severe pulmonary hypertension. Denies vomiting or diarrhea. Denies chest pain. Again dyspnea is improved. Admits to good urine output. Vital signs are stable. General: The patient appeared well nourished and normally developed. HEENT: Head exam is unremarkable. Neck is without jugular venous distension. LUNGS: Lungs are clear to auscultation and percussion. Breath sounds decreased. HEART: Rate and Rhythm are regular. First and second heart sounds normal. No murmurs, rubs or gallops. ABDOMEN: Abdominal exam reveals normal bowel sounds. Non-tender and non- distended. No evidence of peritonitis. EXTREMITITES: 1+ edema. Objective - Vital Signs Vital signs: Vital Signs Temp 97.2 F L 11/04/16 08:00 Pulse 77 11/04/16 08:00 Resp 18 11/04/16 08:00 BP 125/60 11/04/16 08:00 Pulse Ox 99 11/04/16 08:00 Intake & Output 11/03/16 11/04/16 11/04/16 18:59 06:59 18:59 Intake Total 1069.333 240 397.833 Output Total 600 800 300 Balance 469.333 -560 97.833 Weight 138 kg 129 kg Intake: IV 300 Furosemide 250 mg In 180 Sodium Chloride 0.9% 225 ml @ 15 MG/HR 15 mls/hr IVP .[id number] [facility] Rx#: [id number] NS 120 Intake, IV Titration 169.333 161.833 Amount Furosemide 250 mg In 169.333 161.833 Sodium Chloride 0.9% 225 ml @ 15 MG/HR 15 mls/hr IVP .[id number] [facility] Rx#: [id number] Oral 600 240 236 Output: Urine 600 800 300 Other: Voiding Method Urinal # Voids 1 # Bowel Movements 0 - Labs CBC & Chem 7: 11/02/16 13:43 11/04/16 06:37 Labs: Abnormal Lab Results - Last 24 Hours (Table) 11/03/16 11/03/16 11/03/16 Range/Units 05:32 11:35 11:49 BUN (9-20) mg/dL Creatinine (0.66-1.25) mg/dL Glucose (74-99) mg/dL POC Glucose (mg/dL) 124 H (75-99) mg/dL Iron 30 L (49-181) ug/dL TIBC 246 L (261-462) ug/dL % Saturation 12.2 L (20-50) % Urine Protein 1+ H (Negative) Amorphous Sediment Rare H (None) /hpf Urine Bacteria Rare H (None) /hpf Hyaline Casts 22 H (0-2) /lpf Urine Mucus Rare H (None) /hpf 11/03/16 11/03/16 11/04/16 Range/Units 16:43 20:52 06:31 BUN (9-20) mg/dL Creatinine (0.66-1.25) mg/dL Glucose (74-99) mg/dL POC Glucose (mg/dL) 122 H 120 H 127 H (75-99) mg/dL Iron (49-181) ug/dL TIBC (261-462) ug/dL % Saturation (20-50) % Urine Protein (Negative) Amorphous Sediment (None) /hpf Urine Bacteria (None) /hpf Hyaline Casts (0-2) /lpf Urine Mucus (None) /hpf 11/04/16 Range/Units 06:37 BUN 63 H (9-20) mg/dL Creatinine 1.68 H (0.66-1.25) mg/dL Glucose 125 H (74-99) mg/dL POC Glucose (mg/dL) (75-99) mg/dL Iron (49-181) ug/dL TIBC (261-462) ug/dL % Saturation (20-50) % Urine Protein (Negative) Amorphous Sediment (None) /hpf Urine Bacteria (None) /hpf Hyaline Casts (0-2) /lpf Urine Mucus (None) /hpf Assessment and Plan Plan: Assessment: #1. Nonoliguric acute kidney injury secondary to cardiorenal syndrome. Creatinine stable at 1.68 today. #2. Chronic kidney disease stage III with baseline creatinine in the range of 1.3-1.5 secondary to diabetic kidney disease. #3. Severe pulmonary hypertension. #4. Volume overload. #5. Anemia. Iron deficiency present. Plan: Continue Lasix drip to be run at 15 mL an hour. Continue metolazone 5 mg twice daily. Low-salt diet. Ferrlecit 125 mg IV daily for 3 days. First dose today. Avoid nephrotoxic agents and hypotensive episodes. Daily weights and strict I's and O's. Repeat electrolytes in the morning.
[2016-11-04 11:49] LABS: Glucose,Whole Blood 212 mg/dL (75-99)
[2016-11-04] MEDS: CHOLECALCIFEROL 1,000 UNIT TAB PO SCH (12:04)
[2016-11-04] MEDS: oxyCODONE-APAP 5-325MG 1 EACH TAB PO PRN ×3 (12:04→23:53)
[2016-11-04] MEDS: MULTIVITAMINS, THERA 1 EACH TAB PO SCH (12:04)
[2016-11-04] MEDS: SODIUM FERRIC GLUCONAT-SUCROSE 125 MG in SODIUM CHLORIDE 0.9% 100 ML IVPB SCH (12:12)
[2016-11-04 16:53] LABS: Glucose,Whole Blood 180 mg/dL (75-99)
[2016-11-04] MEDS: FERROUS SULFATE 325 MG TAB PO SCH (17:36)
--- NOTE | 2016-11-04 19:04 | PN ---
DATE OF SERVICE: 11/04/2016 PRESENTING COMPLAINT: Short of breath. INTERVAL HISTORY: Patient was admitted with CHF exacerbation. Continues on Lasix drip. Negative fluid balance. Breathing is getting better. Sitting up, tolerating some diet. Edema is still present. Review of systems done for constitutional, cardiovascular, GI, pulmonary; relevant findings as above. Current medications are noted, includin. Lasix drip and 2. IV metolazone. On examination, temperature 96.3, pulse 92, respiration 18, blood pressure 128/59, pulse ox 94% on 2L. GENERAL APPEARANCE: Sitting up, awake. EYES: Pupils equal. Conjunctivae normal. NECK: JVD raised. Mass not palpable. RESPIRATORY: Effort increased. LUNGS: Diminished breath sounds. CARDIOVASCULAR: First and second sounds normal with edema present. ABDOMEN: Distended, soft. Liver and spleen and spleen not palpable. PSYCHIATRY: Alert and oriented x3. Mood and affect were normal. FOOT: Put the foot in a dressing. INVESTIGATIONS: Potassium 4.5, BUN 63, creatinine 1.68. ASSESSMENT: 1. Acute on chronic congestive heart failure exacerbation from diastolic dysfunction, ejection fraction 55% to 60% from underlying hypertension. 2. Left heel decubitus ulcer present at admission. 3. Chronic kidney stage 3 from nephrosclerosis. 4. Peripheral artery disease. 5. Anemia of chronic kidney disease. 6. Morbid obesity, body mass index of 43.4. 7. Diabetes mellitus type 2, chronically on insulin. 8. Essential hypertension. 9. Hyperlipidemia. 10. Primary osteoarthritis of multiple joints. 11. Chronic hypoxic respiratory failure on home oxygen. 12. Acute hypoxic respiratory failure present on admission from congestive heart failure. 13. Hypertensive heart disease type. 14. Dry gangrene of the right 4th toe, probably from underlying peripheral artery disease, present on admission. 15. Persistent atrial fibrillation, chronically anticoagulated on Coumadin. 16. Chronic medical debility from multiple problems. Patient is not able to carry out activities of daily living. PLAN: Continue current medication and treatment plan. Maintain the patient on Lasix drip. Care was discussed with the patient. Follow.
[2016-11-04 20:32] LABS: Glucose,Whole Blood 171 mg/dL (75-99)
[2016-11-04] MEDS: ATORVASTATIN 20 MG TAB PO SCH (22:00)
[2016-11-04] MEDS: MELATONIN 3 MG TABLET PO SCH (22:00)
[2016-11-04] MEDS: LORazepam 0.5 MG TAB PO PRN (22:01)
[2016-11-04] MEDS: INSULIN GLARGINE 100 UNIT/ML 10 ML VIAL SQ SCH (22:01)
[2016-11-04 22:52] LABS: INR 2.2 (<1.1); Prothrombin Time 21.3 sec (9.0-12.0)
[2016-11-04] MEDS: WARFARIN 2.5 MG TAB PO SCH (23:53)
[2016-11-04] MEDS: COLLAGENASE 250 UNIT/GM OINTMENT 30 GM TUBE TOPICAL SCH (23:54)
[2016-11-05] MEDS: FUROSEMIDE 250 MG in SODIUM CHLORIDE 0.9% 225 ML IVP SCH (03:06)
[2016-11-05 06:20] LABS: Glucose,Whole Blood 115 mg/dL (75-99)
[2016-11-05 06:58] LABS: Calcium 9.1 mg/dL (8.4-10.2); Potassium 4.3 mmol/L (3.5-5.1)
[2016-11-05] MEDS: PANTOPRAZOLE 40 MG TABLET PO SCH (07:26)
[2016-11-05 08:15] LABS: INR 2.4 (<1.1); Prothrombin Time 22.7 sec (9.0-12.0)
[2016-11-05] MEDS: INSULIN LISPRO (humaLOG) 300 UNIT/3 ML VIAL SQ SCH ×3 (08:26→17:24)
[2016-11-05] MEDS: GABAPENTIN 100 MG CAP PO SCH ×3 (08:26→22:04)
[2016-11-05] MEDS: METOPROLOL TARTRATE 50 MG TAB PO SCH ×2 (08:26→22:03)
[2016-11-05] MEDS: hydrALAZINE HCL 50 MG TAB PO SCH ×3 (08:26→22:02)
[2016-11-05] MEDS: NITROGLYCERIN OINT 1 INCH/GM PACKET TOPICAL SCH (08:26)
[2016-11-05] MEDS: METOLAZONE 5 MG TAB PO SCH ×2 (08:26→22:04)
[2016-11-05] MEDS: ALBUTEROL NEBULIZED 2.5 MG/3 ML INHALATION SCH ×4 (09:06→20:18)
--- NOTE | 2016-11-05 09:24 | P.PN ---
Subjective Patient is seen in follow-up for acute kidney injury. Renal function is stable with creatinine at 1.7 today. Patient presented with edema and dyspnea. Overall improving. He does have history of severe pulmonary hypertension. Denies vomiting or diarrhea. Denies chest pain. Dyspnea improved. Admits to good urine output. Vital signs are stable. General: The patient appeared well nourished and normally developed. HEENT: Head exam is unremarkable. Neck is without jugular venous distension. LUNGS: Lungs are clear to auscultation and percussion. Breath sounds decreased. HEART: Rate and Rhythm are regular. First and second heart sounds normal. No murmurs, rubs or gallops. ABDOMEN: Abdominal exam reveals normal bowel sounds. Non-tender and non- distended. No evidence of peritonitis. EXTREMITITES: 1+ edema. Objective - Vital Signs Vital signs: Vital Signs Temp 97.2 F L 11/05/16 04:00 Pulse 68 11/05/16 09:14 Resp 18 11/05/16 04:00 BP 148/64 11/05/16 04:00 Pulse Ox 95 11/05/16 09:08 Intake & Output 11/04/16 11/05/16 11/05/16 18:59 06:59 18:59 Intake Total 1378.833 779.333 240 Output Total 1675 1100 Balance -296.167 -320.667 240 Intake: IV 30 NS 30 Intake, IV Titration 161.833 179.333 Amount Furosemide 250 mg In 161.833 179.333 Sodium Chloride 0.9% 225 ml @ 15 MG/HR 15 mls/hr IVP .[id number] [facility] Rx#: [id number] Oral 1187 600 240 Output: Urine 1675 1100 Other: # Voids 1 # Bowel Movements 1 - Labs CBC & Chem 7: 11/02/16 13:43 11/05/16 05:50 Labs: Abnormal Lab Results - Last 24 Hours (Table) 11/04/16 11/04/16 11/04/16 Range/Units 11:47 16:48 20:30 PT (9.0-12.0) sec Sodium (137-145) mmol/L BUN (9-20) mg/dL Creatinine (0.66-1.25) mg/dL Glucose (74-99) mg/dL POC Glucose (mg/dL) 212 H 180 H 171 H (75-99) mg/dL 11/04/16 11/05/16 11/05/16 Range/Units 22:17 05:50 06:17 PT 21.3 H (9.0-12.0) sec Sodium 147 H (137-145) mmol/L BUN 70 H (9-20) mg/dL Creatinine 1.70 H (0.66-1.25) mg/dL Glucose 115 H (74-99) mg/dL POC Glucose (mg/dL) 115 H (75-99) mg/dL 11/05/16 Range/Units 07:57 PT 22.7 H (9.0-12.0) sec Sodium (137-145) mmol/L BUN (9-20) mg/dL Creatinine (0.66-1.25) mg/dL Glucose (74-99) mg/dL POC Glucose (mg/dL) (75-99) mg/dL Assessment and Plan Plan: Assessment: #1. Nonoliguric acute kidney injury secondary to cardiorenal syndrome. Creatinine stable at 1.7 today. #2. Chronic kidney disease stage III with baseline creatinine in the range of 1.3-1.5 secondary to diabetic kidney disease. #3. Severe pulmonary hypertension. #4. Volume overload. #5. Anemia. Iron deficiency present. Plan: Discontinue Lasix drip. Start IV Lasix 60 mg twice daily. Continue metolazone 5 mg twice daily. Low-salt diet. Ferrlecit 125 mg IV daily for 3 days. Second dose today. Avoid nephrotoxic agents and hypotensive episodes. Daily weights and strict I's and O's. Repeat electrolytes in the morning.
[2016-11-05] MEDS: DEXTROSE 5% IN WATER 1,000 ML IV SCH (10:17)
[2016-11-05] MEDS: FUROSEMIDE 10 MG/ML 10 ML VIAL IV SCH ×2 (10:17→22:03)
[2016-11-05] MEDS: SODIUM FERRIC GLUCONAT-SUCROSE 125 MG in SODIUM CHLORIDE 0.9% 100 ML IVPB SCH (10:17)
[2016-11-05 12:01] LABS: Glucose,Whole Blood 233 mg/dL (75-99)
[2016-11-05] MEDS: CHOLECALCIFEROL 1,000 UNIT TAB PO SCH (12:17)
[2016-11-05] MEDS: MULTIVITAMINS, THERA 1 EACH TAB PO SCH (12:17)
[2016-11-05] MEDS: amLODIPine 5 MG TAB PO SCH (12:17)
--- NOTE | 2016-11-05 14:32 | PN ---
Mr. Moreno is a 76 -year-old male patient who has who has respiratory problems, obstructive sleep apnea and chronic respiratory failure. Last night he also had underlying atrial fibrillation. Last night he had a 3.5 second pause. During the day he is fine. His pulse rate is in the 60s. He has no bradycardia. His blood pressure is 181/46 mmHg. He is obese. He has ( ). Breath sounds are reduced bilaterally. Heart sounds S1 and S2 are soft but irregular. IMPRESSION: Chronic respiratory failure, obstructive sleep apnea, chronic hypoxic failure, permanent atrial fibrillation with bradycardia at night especially when he has hypoxia episodes and during these periods of apnea when he takes off his mask and ( ) likely severe peripheral vascular disease. SUGGEST: Continue atorvastatin. Continue Lasix. I would reduce evening dose of metoprolol to 25 mg while continuing 50 mg in the morning and continue anticoagulation. Continue amlodipine and hydralazine.
[2016-11-05 16:47] LABS: Glucose,Whole Blood 190 mg/dL (75-99)
[2016-11-05] MEDS: WARFARIN 2.5 MG TAB PO SCH (17:24)
[2016-11-05] MEDS: FERROUS SULFATE 325 MG TAB PO SCH (17:24)
[2016-11-05 21:36] LABS: Glucose,Whole Blood 230 mg/dL (75-99)
[2016-11-05] MEDS: INSULIN GLARGINE 100 UNIT/ML 10 ML VIAL SQ SCH (22:00)
[2016-11-05] MEDS: oxyCODONE-APAP 5-325MG 1 EACH TAB PO PRN (22:00)
[2016-11-05] MEDS: COLLAGENASE 250 UNIT/GM OINTMENT 30 GM TUBE TOPICAL SCH (22:02)
[2016-11-05] MEDS: MELATONIN 3 MG TABLET PO SCH (22:03)
[2016-11-05] MEDS: ATORVASTATIN 20 MG TAB PO SCH (22:03)
[2016-11-06] MEDS: LORazepam 0.5 MG TAB PO PRN ×2 (01:14→20:59)
[2016-11-06] MEDS: DEXTROSE 5% IN WATER 1,000 ML IV SCH (06:28)
[2016-11-06 06:35] LABS: Glucose,Whole Blood 156 mg/dL (75-99)
[2016-11-06] MEDS: PANTOPRAZOLE 40 MG TABLET PO SCH (06:45)
[2016-11-06] MEDS: INSULIN LISPRO (humaLOG) 300 UNIT/3 ML VIAL SQ SCH ×3 (06:45→16:54)
[2016-11-06 07:14] LABS: INR 2.3 (<1.1); Prothrombin Time 22.5 sec (9.0-12.0)
[2016-11-06 07:24] LABS: Calcium 8.9 mg/dL (8.4-10.2); Magnesium 1.9 mg/dL (1.6-2.3); Potassium 3.6 mmol/L (3.5-5.1)
[2016-11-06] MEDS: FUROSEMIDE 10 MG/ML 10 ML VIAL IV SCH ×2 (08:11→20:32)
[2016-11-06] MEDS: GABAPENTIN 100 MG CAP PO SCH ×3 (08:12→20:31)
[2016-11-06] MEDS: hydrALAZINE HCL 50 MG TAB PO SCH ×3 (08:12→20:32)
[2016-11-06] MEDS: METOLAZONE 5 MG TAB PO SCH ×2 (08:12→20:31)
[2016-11-06] MEDS: amLODIPine 5 MG TAB PO SCH (08:12)
[2016-11-06] MEDS: oxyCODONE-APAP 5-325MG 1 EACH TAB PO PRN ×2 (08:13→18:02)
[2016-11-06] MEDS: METOPROLOL TARTRATE 50 MG TAB PO SCH ×2 (08:16→20:36)
[2016-11-06] MEDS: ALBUTEROL NEBULIZED 2.5 MG/3 ML INHALATION SCH ×4 (08:55→20:22)
--- NOTE | 2016-11-06 09:16 | P.PN ---
Subjective Patient is seen in follow-up for acute kidney injury. Renal function is stable with creatinine at 1.69 today. Patient presented with edema and dyspnea. Overall improving. He does have history of severe pulmonary hypertension. Denies vomiting or diarrhea. Denies chest pain. Dyspnea improved. Admits to good urine output. Vital signs are stable. General: The patient appeared well nourished and normally developed. HEENT: Head exam is unremarkable. Neck is without jugular venous distension. LUNGS: Lungs are clear to auscultation and percussion. Breath sounds decreased. HEART: Rate and Rhythm are regular. First and second heart sounds normal. No murmurs, rubs or gallops. ABDOMEN: Abdominal exam reveals normal bowel sounds. Non-tender and non- distended. No evidence of peritonitis. EXTREMITITES: 1+ edema. Objective - Vital Signs Vital signs: Vital Signs Temp 97.4 F L 11/06/16 08:00 Pulse 64 11/06/16 09:07 Resp 18 11/06/16 08:00 BP 118/56 11/06/16 08:00 Pulse Ox 95 11/06/16 08:00 Intake & Output 11/05/16 11/06/16 11/06/16 18:59 06:59 18:59 Intake Total 780 625 Output Total 1175 1200 Balance -395 -575 Weight 131 kg Intake: IV 30 625 Dextrose 5% in Water 1, 625 000 ml @ 50 mls/hr IV . Q20H [facility] Rx#:[id number] NS 30 Intake, IV Titration 150 Amount Dextrose 5% in Water 1, 150 000 ml @ 50 mls/hr IV . Q20H [facility] Rx#:[id number] Oral 600 Output: Urine 1175 1200 Other: Voiding Method Urinal Urinal # Voids 2 - Labs CBC & Chem 7: 11/02/16 13:43 11/06/16 06:41 Labs: Abnormal Lab Results - Last 24 Hours (Table) 11/05/16 11/05/16 11/05/16 Range/Units 11:55 16:42 21:29 PT (9.0-12.0) sec Carbon Dioxide (22-30) mmol/L BUN (9-20) mg/dL Creatinine (0.66-1.25) mg/dL Glucose (74-99) mg/dL POC Glucose (mg/dL) 233 H 190 H 230 H (75-99) mg/dL 11/06/16 11/06/16 11/06/16 Range/Units 06:31 06:41 06:41 PT 22.5 H (9.0-12.0) sec Carbon Dioxide 33 H (22-30) mmol/L BUN 67 H (9-20) mg/dL Creatinine 1.69 H (0.66-1.25) mg/dL Glucose 150 H (74-99) mg/dL POC Glucose (mg/dL) 156 H (75-99) mg/dL Assessment and Plan Plan: Assessment: #1. Nonoliguric acute kidney injury secondary to cardiorenal syndrome. Creatinine stable at 1.69 today. #2. Chronic kidney disease stage III with baseline creatinine in the range of 1.3-1.5 secondary to diabetic kidney disease. #3. Severe pulmonary hypertension. #4. Volume overload. #5. Anemia. Iron deficiency present. Plan: Continue IV Lasix 60 mg twice daily. Continue metolazone 5 mg twice daily. Low-salt diet. Ferrlecit 125 mg IV daily for 3 days. Third dose today. Avoid nephrotoxic agents and hypotensive episodes. Daily weights and strict I's and O's. Repeat electrolytes in the morning. At the time of discharge, may transition to oral diuretics with Lasix 40 mg twice daily and metolazone 5 mg once daily. He will need to get basic metabolic panel checked within 3-4 days of discharge and follow-up as an outpatient in the next 1-2 weeks.
--- NOTE | 2016-11-06 11:00 | PN ---
DATE OF SERVICE: 11/05/16. PRESENTING COMPLAINT: Short of breath. INTERVAL HISTORY: Patient was admitted with CHF exacerbation and was taken off the Lasix drip put on bolus Lasix. The patient remains in a little bit of negative fluid balance. He has some edema still present. Overall, much better. Review of systems done for constitutional, cardiovascular, GI, pulmonary; as above. Current medications are reviewed that include IV Lasix 60 mg q.12. Zaroxolyn. On examination, temperature . 95.7, pulse 72, respiratory rate 18, blood pressure 137.63, pulse oximetry 95% on 2 liters. Sitting up in bed, awake. EYES: Pupils equal, conjunctivae normal. NECK: JVD possibly raised. No masses palpable. RESPIRATORY: Effort increased. LUNGS: Diminished breath sounds. CARDIOVASCULAR: Heart sounds irregular. Edema present. ABDOMEN: Distended, soft. Liver and spleen not palpable. Psychiatric alert and oriented times 3 . Mood and affect normal. Dermatological: Wounds as before. INVESTIGATIONS: Potassium 4.3, BUN 30, creatine 1.7, sodium 147, INR 2.4. ASSESSMENT: Investigations: Potassium 4.3, BUN 30, creatinine 1.7, sodium 147, INR 2.4 ASSESSMENT: 1. Acute on chronic congestive heart failure exacerbation from diastolic dysfunction, ejection fraction 55% to 60%, underlying hypertension. 2. Left healed decubitus ulcer, present on admission. 3. Chronic kidney disease from nephrosclerosis. 4. Peripheral artery disease. 5. Anemia of chronic kidney disease. 6. Moderate obesity, body mass index of 43.4. 7. Diabetes mellitus type 2, chronically on insulin. 8. Essential hypertension. 9. Hyperlipidemia. 10. Primary osteoarthritis, multiple joints, 11. Hypoxic respiratory failure, on home oxygen. 12. Acute hypoxic respiratory failure on admission from congestive heart failure. 13. Hypertensive heart disease. 14. Dry gangrene of the right 4th toe and 1st toe from peripheral artery disease, present on admission. 15. Persistent atrial fibrillation, chronically on Coumadin. 16. Chronic medical debility from multiple problems. PLAN: Patient was taken off Lasix and put on IV bolus Lasix. I think since the patient's sodium has started to go up, the patient may be close to his baseline. Looking at going back to [facility] in the next maybe 24 hours. Care was discussed with the patient.
[2016-11-06] MEDS: MULTIVITAMINS, THERA 1 EACH TAB PO SCH (11:53)
[2016-11-06] MEDS: SODIUM FERRIC GLUCONAT-SUCROSE 125 MG in SODIUM CHLORIDE 0.9% 100 ML IVPB SCH (11:53)
[2016-11-06] MEDS: CHOLECALCIFEROL 1,000 UNIT TAB PO SCH (11:54)
[2016-11-06 12:05] LABS: Glucose,Whole Blood 182 mg/dL (75-99)
[2016-11-06] MEDS: FERROUS SULFATE 325 MG TAB PO SCH (15:10)
--- NOTE | 2016-11-06 16:00 | P.PN ---
Subjective This is a 76-year-old gentleman who follows with Dr. Teresa in the office. He has a known history of heart failure, hyperlipidemia, diabetes, chronic kidney disease, and hypertension. He presented to the hospital with congestive cardiac failure and was initiated on IV Lasix drip. Patient also has chronic persistent atrial fibrillation, anticoagulated with Coumadin. INR today is 2.3, creatinine 1.6. Currently on Lasix IV 60 mg every 12 hours. Objective - Vital Signs Vital signs: Vital Signs Temp 96.8 F L 11/06/16 15:12 Pulse 71 11/06/16 15:12 Resp 17 11/06/16 15:12 BP 133/62 11/06/16 15:12 Pulse Ox 95 11/06/16 15:12 Intake & Output 11/05/16 11/06/16 11/06/16 18:59 06:59 18:59 Intake Total 780 625 240 Output Total 1175 1200 500 Balance -395 -575 -260 Weight 131 kg Intake: IV 30 625 Dextrose 5% in Water 1, 625 000 ml @ 50 mls/hr IV . Q20H [facility] Rx#:[id number] NS 30 Intake, IV Titration 150 Amount Dextrose 5% in Water 1, 150 000 ml @ 50 mls/hr IV . Q20H [facility] Rx#:[id number] Oral 600 240 Output: Urine 1175 1200 500 Other: Voiding Method Urinal Urinal # Voids 2 - Exam PHYSICAL EXAMINATION: HEENT: Head is atraumatic, normocephalic. Pupils equal, round. Neck is supple. There is no elevated jugular venous pressure. HEART EXAMINATION: Heart sounds irregularly irregular, S1 and S2 normal. No murmur or gallop heard. CHEST EXAMINATION: Lungs reveal diminished air entry. No chest wall tenderness is noted on palpation or with deep breathing. ABDOMEN: Soft, obese, nontender. Bowel sounds are heard. No organomegaly noted. EXTREMITIES: 2+ peripheral pulses with evidence of 2+ peripheral edema and no calf tenderness noted. NEUROLOGIC patient is awake, alert and oriented x3. - Labs CBC & Chem 7: 11/02/16 13:43 11/06/16 06:41 Labs: Abnormal Lab Results - Last 24 Hours (Table) 11/05/16 11/05/16 11/06/16 Range/Units 16:42 21:29 06:31 PT (9.0-12.0) sec Carbon Dioxide (22-30) mmol/L BUN (9-20) mg/dL Creatinine (0.66-1.25) mg/dL Glucose (74-99) mg/dL POC Glucose (mg/dL) 190 H 230 H 156 H (75-99) mg/dL 11/06/16 11/06/16 11/06/16 Range/Units 06:41 06:41 12:03 PT 22.5 H (9.0-12.0) sec Carbon Dioxide 33 H (22-30) mmol/L BUN 67 H (9-20) mg/dL Creatinine 1.69 H (0.66-1.25) mg/dL Glucose 150 H (74-99) mg/dL POC Glucose (mg/dL) 182 H (75-99) mg/dL Assessment and Plan Plan: Assessment and plan #1 acute on chronic kidney injury #2 pulmonary edema #3 acute on chronic congestive heart failure, diastolic. #4 chronic foot ulcers #5 chronic atrial fibrillation Plan Patient still having brief episodes of bradycardia when he is hypoxic at night, he's been instructed to keep this CPAP machine on. Blood pressure stable today. We will continue IV Lasix drip. DNP note has been reviewed, I agree with a documented findings and plan of care. Patient was seen and examined.
[2016-11-06 16:44] LABS: Glucose,Whole Blood 197 mg/dL (75-99)
[2016-11-06] MEDS: WARFARIN 5 MG TAB PO SCH (16:54)
[2016-11-06] MEDS: MELATONIN 3 MG TABLET PO SCH (20:31)
[2016-11-06] MEDS: COLLAGENASE 250 UNIT/GM OINTMENT 30 GM TUBE TOPICAL SCH (20:32)
[2016-11-06] MEDS: ATORVASTATIN 20 MG TAB PO SCH (20:32)
[2016-11-06] MEDS: INSULIN GLARGINE 100 UNIT/ML 10 ML VIAL SQ SCH (20:37)
[2016-11-06 21:02] LABS: Glucose,Whole Blood 246 mg/dL (75-99)
--- NOTE | 2016-11-06 23:40 | PN ---
DATE OF SERVICE: 11/06/2016 PRESENTING COMPLAINT: Short of breath. INTERVAL HISTORY: This is a patient who presented with CHF exacerbation. He was initially on Lasix drip; now on bolus Lasix. There is concern about some hypoxia at night; hence CPAP was evaluated for use for the same. Edema has been coming down. Breathing is better. Review of systems done for constitutional, cardiovascular, GI, pulmonary; relevant findings as above. Current medications are reviewed that include IV Lasix 60 q.12. On examination, temperature 96.8, pulse 71, respiration 17, blood pressure 133/62, pulse ox 95% on 2 L. GENERAL APPEARANCE: Propped up in bed. Awake. EYES: Pupils equal. Conjunctivae normal. NECK: JVD unable to assess. Mass not palpable. RESPIRATORY: Effort increased. LUNGS: Diminished breath sounds. CARDIOVASCULAR: Heart sounds irregular. Edema present. ABDOMEN: Distended, soft. Liver and spleen not palpable. PSYCHIATRY: Alert and oriented x3. Mood and affect normal. DERMATOLOGICAL: Foot wounds as ( ) before. INVESTIGATIONS: Potassium 3.6, bicarb 33. INR 2.3. BUN 69, creatinine 1.69. Accu-Cheks are noted. ASSESSMENT: 1. Acute on chronic congestive heart failure exacerbation from diastolic dysfunction; ejection fraction 55% to 60% from underlying hypertension, clinically seems to be much improved. 2. Left heel decubitus ulcer, present on admission. 3. Chronic kidney disease, stage III, from nephrosclerosis. 4. Peripheral artery disease. 5. Anemia of chronic kidney disease. 6. Moderate obesity; body mass index of 43.4. 7. Diabetes mellitus, type 2, chronically on insulin. 8. Essential hypertension. 9. Hyperlipidemia. 10. Primary osteoarthritis in multiple joints. 11. Hypoxic respiratory failure, chronic, on home oxygen. 12. Acute hypoxic respiratory failure on admission from congestive heart failure. 13. Hypertensive heart disease. 14. Dry gangrene on the right fourth toe and the first toe from peripheral artery disease, present on admission. 15. Persistent atrial fibrillation, chronically on Coumadin. 16. Chronic medical debility from multiple problems. PLAN: Continue current medication and treatment plan. Will await further assessment from Cardiology and Nephrology. Also will get an opinion from Pulmonary in view of the CPAP that was being used nocturnally at night. Patient most likely has a sleep apnea component. Will need more workup as an outpatient.
[2016-11-07] MEDS: oxyCODONE-APAP 5-325MG 1 EACH TAB PO PRN ×3 (00:25→13:26)
[2016-11-07 06:05] LABS: Glucose,Whole Blood 182 mg/dL (75-99)
[2016-11-07 06:33] LABS: INR 2.5 (<1.1); Prothrombin Time 23.8 sec (9.0-12.0)
[2016-11-07] MEDS: DEXTROSE 5% IN WATER 1,000 ML IV SCH (06:40)
[2016-11-07] MEDS: PANTOPRAZOLE 40 MG TABLET PO SCH (06:48)
[2016-11-07 06:50] LABS: Calcium 8.5 mg/dL (8.4-10.2); Potassium 4.7 mmol/L (3.5-5.1)
[2016-11-07] MEDS: INSULIN LISPRO (humaLOG) 300 UNIT/3 ML VIAL SQ SCH ×3 (07:14→17:25)
[2016-11-07] MEDS: FUROSEMIDE 10 MG/ML 10 ML VIAL IV SCH (08:27)
[2016-11-07] MEDS: GABAPENTIN 100 MG CAP PO SCH ×2 (08:36→15:43)
[2016-11-07] MEDS: METOPROLOL TARTRATE 50 MG TAB PO SCH (08:36)
[2016-11-07] MEDS: METOLAZONE 5 MG TAB PO SCH (08:36)
[2016-11-07] MEDS: hydrALAZINE HCL 50 MG TAB PO SCH ×2 (08:36→15:43)
[2016-11-07] MEDS: amLODIPine 5 MG TAB PO SCH (08:36)
[2016-11-07] MEDS: ALBUTEROL NEBULIZED 2.5 MG/3 ML INHALATION SCH ×3 (09:37→16:13)
--- NOTE | 2016-11-07 09:42 | P.PN ---
Subjective Patient is seen in follow-up for acute kidney injury. Renal function is stable with creatinine at 1.7 today. Patient presented with edema and dyspnea. Overall improving. He does have history of severe pulmonary hypertension. Denies vomiting or diarrhea. Denies chest pain. Dyspnea improved. Admits to good urine output. Vital signs are stable. General: The patient appeared well nourished and normally developed. HEENT: Head exam is unremarkable. Neck is without jugular venous distension. LUNGS: Lungs are clear to auscultation and percussion. Breath sounds decreased. HEART: Rate and Rhythm are regular. First and second heart sounds normal. No murmurs, rubs or gallops. ABDOMEN: Abdominal exam reveals normal bowel sounds. Non-tender and non- distended. No evidence of peritonitis. EXTREMITITES: Trace edema. Objective - Vital Signs Vital signs: Vital Signs Temp 97.1 F L 11/07/16 07:53 Pulse 76 11/07/16 09:39 Resp 16 11/07/16 07:53 BP 133/63 11/07/16 07:53 Pulse Ox 92 L 11/07/16 07:53 Intake & Output 11/06/16 11/07/16 11/07/16 18:59 06:59 18:59 Intake Total 880 Output Total 500 Balance 380 Intake: IV 400 Dextrose 5% in Water 1, 400 000 ml @ 50 mls/hr IV . Q20H [facility] Rx#:[id number] Oral 480 Output: Urine 500 Other: Voiding Method Urinal Urinal Urinal - Labs CBC & Chem 7: 11/02/16 13:43 11/07/16 05:35 Labs: Abnormal Lab Results - Last 24 Hours (Table) 11/06/16 11/06/16 11/06/16 Range/Units 12:03 16:42 21:00 PT (9.0-12.0) sec Chloride (98-107) mmol/L BUN (9-20) mg/dL Creatinine (0.66-1.25) mg/dL Glucose (74-99) mg/dL POC Glucose (mg/dL) 182 H 197 H 246 H (75-99) mg/dL 11/07/16 11/07/16 11/07/16 Range/Units 05:35 05:35 06:04 PT 23.8 H (9.0-12.0) sec Chloride 97 L (98-107) mmol/L BUN 70 H (9-20) mg/dL Creatinine 1.70 H (0.66-1.25) mg/dL Glucose 179 H (74-99) mg/dL POC Glucose (mg/dL) 182 H (75-99) mg/dL Assessment and Plan Plan: Assessment: #1. Nonoliguric acute kidney injury secondary to cardiorenal syndrome. Creatinine stable at 1.7 today. #2. Chronic kidney disease stage III with baseline creatinine in the range of 1.3-1.5 secondary to diabetic kidney disease. #3. Severe pulmonary hypertension. #4. Volume overload. Improving. #5. Anemia. Iron deficiency present. #6. Hypernatremia secondary to diuresis. Plan: Discontinue D5W. Continue IV Lasix 60 mg twice daily. Decrease metolazone to 5 mg once daily. Low-salt diet. Status post 3 doses of IV iron. Avoid nephrotoxic agents and hypotensive episodes. Daily weights and strict I's and O's. Repeat electrolytes in the morning. At the time of discharge, may transition to oral diuretics with Lasix 40 mg twice daily and metolazone 5 mg once daily. He will need to get basic metabolic panel checked within 3-4 days of discharge and follow-up as an outpatient in the next 1-2 weeks.
[2016-11-07] MEDS: CHOLECALCIFEROL 1,000 UNIT TAB PO SCH (10:55)
[2016-11-07] MEDS: SODIUM FERRIC GLUCONAT-SUCROSE 125 MG in SODIUM CHLORIDE 0.9% 100 ML IVPB SCH (10:55)
[2016-11-07] MEDS: MULTIVITAMINS, THERA 1 EACH TAB PO SCH (10:55)
[2016-11-07 11:47] LABS: Glucose,Whole Blood 267 mg/dL (75-99)
--- NOTE | 2016-11-07 13:11 | P.CNPUL ---
History of Present Illness Consult date: 11/07/16 Reason for consult: obstructive sleep apnea History of present illness: 76-year-old male patient, obese, with multiple medical problems and comorbidities, home of asked to see for the possibility of an underlying sleep breathing disorder. Note that the patient has CHF with diastolic dysfunction who was hospitalized for increased pulmonary edema and heart failure. He also has multiple other medical problems and comorbidities. He suffers from chronic renal insufficiency/failure and he is known to have stage III kidney disease secondary to hypertensive nephrosclerosis and during this current admission the patient went into acute hypoxic respiratory failure that was attributed to increased heart failure and fluid overload. He was diuresed aggressively and he is still taking Lasix 80 mg IV push every 12 hours. The patient during the process was also placed on BiPAP which according to the hospitalist was taking care of the patient helped him considerably to the point where the patient is also suspected to have an underlying sleep breathing disorder and there is a intention to continue the treatment even on outpatient basis. My understanding is that the patient is being discharged to further rehabilitation. He has no specific complaints for now. His resting comfortably in bed. He is not sure whether he has any snoring history. His mobility has been limited knowing that he has chronic lower extremity edema and ulceration in his legs especially in his left heel which is still active for the time being. He is known to have peripheral vascular disease and dry gangrene on the right fourth toe and the first toe and this has been related to his severe peripheral vascular disease. He remains on anticoagulation for his chronic atrial fibrillation. Review of Systems Full review of system was done and the positive finds almost above history of present illness. No history of breathing disorder or obstructive sleep apnea. The patient however has chronic hypoxic respiratory failure and he is maintained on oxygen at home. Past Medical History Past Medical History: Cancer, Heart Failure, CVA/TIA, Diabetes Mellitus, Hyperlipidemia, Hypertension, Osteoarthritis (OA) Additional Past Medical History / Comment(s): CHF with diastolic dysfunction and ejection fraction of 55-60%, severe peripheral vascular disease, left heel decubitus ulcer, chronic renal failure with stage III kidney disease and hypertensive nephrosclerosis, peripheral vascular disease, chronic anemia, morbid obesity with a BMI of 43, diabetes mellitus type 2, hypertension, hyperlipidemia, osteoarthritis, chronic lower extremity edema, chronic lower extremity ulceration, chronic atrial fibrillation, hypertensive heart disease, chronic hypoxic respiratory failure, impaired performance and functional status secondary to above-mentioned comorbidities, prostate cancer treated by radiation therapy for a total of 5 weeks, dry gangrene involving the toes the first and the fourth on the right. History of Any Multi-Drug Resistant Organisms: None Reported Past Surgical History: Appendectomy, Back Surgery Additional Past Surgical History / Comment(s): Renal biopsy, bilateral cataract replacement Past Anesthesia/Blood Transfusion Reactions: No Reported Reaction Past Psychological History: No Psychological Hx Reported Additional Psychological History / Comment(s): PT AT [facility] w/c to get around. He is single. Remote history of tobacco use. No current alcohol use. 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 No other international travel no illnesses during his service. No animal exposures Smoking Status: Former smoker Past Alcohol Use History: None Reported Additional Past Alcohol Use History / Comment(s): 1975 quit in [place] same year Past Drug Use History: None Reported - Past Family History Mother Family Medical History: Diabetes Mellitus Father Family Medical History: Diabetes Mellitus Medications and Allergies Home Medications Medication Instructions Recorded Confirmed Type Albuterol Nebulized [Ventolin 2.5 mg INHALATION Q4HR PRN 11/02/16 11/02/16 History Nebulized] LORazepam [Ativan] 0.5 mg PO HS PRN 11/02/16 11/02/16 History Melatonin 3 mg PO HS 11/02/16 11/02/16 History Multivitamins, Thera [Multivitamin] 1 tab PO DAILY 11/02/16 11/02/16 History Warfarin Sodium [Coumadin] 2.5 mg PO DIRECTED 11/02/16 11/02/16 History Warfarin [Coumadin] 5 mg PO DIRECTED 11/02/16 11/02/16 History Allergies Allergy/AdvReac Type Severity Reaction Status Date / Time Penicillins Allergy Rash/Hives Verified 10/11/16 11:32 Physical Exam Vitals: Vital Signs Temp Pulse Pulse Resp BP Pulse Ox 11/07/16 11:38 80 11/07/16 11:10 97.5 F L 72 18 154/67 94 L 11/07/16 09:45 80 11/07/16 09:39 76 11/07/16 08:45 74 16 11/07/16 07:53 97.1 F L 74 16 133/63 92 L 11/07/16 07:38 97.7 F 81 18 115/60 91 L 11/07/16 07:32 18 11/07/16 04:00 79 18 131/59 93 L 11/07/16 00:00 80 17 134/60 96 11/06/16 20:30 84 11/06/16 20:19 80 11/06/16 20:00 97.8 F 69 17 128/60 98 11/06/16 16:05 68 11/06/16 15:57 64 11/06/16 15:12 96.8 F L 71 17 133/62 95 11/06/16 15:04 18 Intake and Output 11/06/16 11/07/16 11/07/16 22:59 06:59 14:59 Intake Total 640 Output Total 600 Balance 640 -600 Intake: IV 400 Dextrose 5% in Water 1, 400 000 ml @ 50 mls/hr IV . Q20H RODOLFO Rx#:[id number] Oral 240 Output: Urine 600 Other: Voiding Method Urinal Urinal Head exam was generally normal. There was no scleral icterus or corneal arcus. Mucous membranes were moist.Neck was supple and without jugular venous distension, thyromegaly, or carotid bruits. Carotids were easily palpable bilaterally. There was no adenopathy. There is crowding of the posterior oropharynx and the patient has a Mallampati class III. Lung sounds are diminished bilaterally otherwise clear. No wheezes or rhonchi. Heart sounds are irregular, positive S1-S2, no significant murmurs could be appreciated.Abdominal exam revealed normal bowel sounds. The abdomen was soft, non-tender, and without masses, organomegaly, or appreciable enlargement of the abdominal aorta. Extremities are swollen and there is a dry gangrene involving the right foot toes, first and fourth in addition diminished pulses and some trace edema in lower oximetry is bilaterally. There is also a left heel decubitus ulceration which is covered with appropriate dressings. Neurologically awake and oriented and his exam is nonfocal. Results - Laboratory Findings CBC and BMP: 11/02/16 13:43 11/07/16 05:35 PT/INR, D-dimer PT 23.8 sec (9.0-12.0) H 11/07/16 05:35 INR 2.5 (<1.1) 11/07/16 05:35 Abnormal lab findings: Abnormal Labs 11/02/16 11/02/16 11/03/16 16:46 21:02 02:56 PT Sodium Chloride Carbon Dioxide BUN Creatinine Glucose POC Glucose (mg/dL) 199 H 160 H 156 H Iron TIBC % Saturation Urine Protein Amorphous Sediment Urine Bacteria Hyaline Casts Urine Mucus 11/03/16 11/03/16 11/03/16 05:32 05:32 05:32 PT 17.7 H Sodium Chloride Carbon Dioxide BUN 56 H Creatinine 1.70 H Glucose 136 H POC Glucose (mg/dL) Iron 30 L TIBC 246 L % Saturation 12.2 L Urine Protein Amorphous Sediment Urine Bacteria Hyaline Casts Urine Mucus 11/03/16 11/03/16 11/03/16 06:28 11:35 11:49 PT Sodium Chloride Carbon Dioxide BUN Creatinine Glucose POC Glucose (mg/dL) 136 H 124 H Iron TIBC % Saturation Urine Protein 1+ H Amorphous Sediment Rare H Urine Bacteria Rare H Hyaline Casts 22 H Urine Mucus Rare H 11/03/16 11/03/16 11/04/16 16:43 20:52 06:31 PT Sodium Chloride Carbon Dioxide BUN Creatinine Glucose POC Glucose (mg/dL) 122 H 120 H 127 H Iron TIBC % Saturation Urine Protein Amorphous Sediment Urine Bacteria Hyaline Casts Urine Mucus 11/04/16 11/04/16 11/04/16 06:37 11:47 16:48 PT Sodium Chloride Carbon Dioxide BUN 63 H Creatinine 1.68 H Glucose 125 H POC Glucose (mg/dL) 212 H 180 H Iron TIBC % Saturation Urine Protein Amorphous Sediment Urine Bacteria Hyaline Casts Urine Mucus 11/04/16 11/04/16 11/05/16 20:30 22:17 05:50 PT 21.3 H Sodium 147 H Chloride Carbon Dioxide BUN 70 H Creatinine 1.70 H Glucose 115 H POC Glucose (mg/dL) 171 H Iron TIBC % Saturation Urine Protein Amorphous Sediment Urine Bacteria Hyaline Casts Urine Mucus 11/05/16 11/05/16 11/05/16 06:17 07:57 11:55 PT 22.7 H Sodium Chloride Carbon Dioxide BUN Creatinine Glucose POC Glucose (mg/dL) 115 H 233 H Iron TIBC % Saturation Urine Protein Amorphous Sediment Urine Bacteria Hyaline Casts Urine Mucus 11/05/16 11/05/16 11/06/16 16:42 21:29 06:31 PT Sodium Chloride Carbon Dioxide BUN Creatinine Glucose POC Glucose (mg/dL) 190 H 230 H 156 H Iron TIBC % Saturation Urine Protein Amorphous Sediment Urine Bacteria Hyaline Casts Urine Mucus 11/06/16 11/06/16 11/06/16 06:41 06:41 12:03 PT 22.5 H Sodium Chloride Carbon Dioxide 33 H BUN 67 H Creatinine 1.69 H Glucose 150 H POC Glucose (mg/dL) 182 H Iron TIBC % Saturation Urine Protein Amorphous Sediment Urine Bacteria Hyaline Casts Urine Mucus 11/06/16 11/06/16 11/07/16 16:42 21:00 05:35 PT 23.8 H Sodium Chloride Carbon Dioxide BUN Creatinine Glucose POC Glucose (mg/dL) 197 H 246 H Iron TIBC % Saturation Urine Protein Amorphous Sediment Urine Bacteria Hyaline Casts Urine Mucus 11/07/16 11/07/16 11/07/16 05:35 06:04 11:45 PT Sodium Chloride 97 L Carbon Dioxide BUN 70 H Creatinine 1.70 H Glucose 179 H POC Glucose (mg/dL) 182 H 267 H Iron TIBC % Saturation Urine Protein Amorphous Sediment Urine Bacteria Hyaline Casts Urine Mucus - Diagnostic Findings Chest x-ray: image reviewed Assessment and Plan Plan: Impression 1 suspected sleep breathing disorder/obstructive sleep apnea. Unable to do a inpatient evaluation. The patient will go to rehab and I gave him the appropriate instructions to follow up with me either in the office on the sleep center to be evaluated for sleep breathing disorder and be directed to Noninvasive positive pressure ventilation treatment or CPAP or BiPAP depending on his needs. Meanwhile, for the time being, the patient can continue using his oxygen at 2-3 L to maintain a saturation above 90% 2 CHF with diastolic dysfunction and ejection fraction of 55-60% 3 acute hypoxic respiratory failure secondary to CHF/pulmonary edema, improving 4 chronic stage III kidney failure secondary to hypertensive nephrosclerosis 5 chronic anemia 6 obesity BMI 43.4 7 peripheral vascular disease 8 left heel decubitus ulceration 9 chronic approximately ulceration 10 dry gangrene involving the first and the fourth toe on the right foot 11 chronic atrial fibrillation on articulation 12 hypertensive heart disease 13 chronic anemia Plan Continue current treatment. I reviewed the medication and the treatment plan which I think is very much appropriate at this point. The patient will be released to [facility] and I asked him to see me either in the office on the sleep center to be valid for any form of sleep breathing disorder. I think there is a considerable chest that the patient may have an underlying sleep apnea. Meanwhile he will continue using his oxygen at 2-3 L per minute nasal cannula. Patient was agreeable. We'll discuss this also with Dr. Pringle
[2016-11-07 13:24] VITALS: BMI 43.9
--- NOTE | 2016-11-07 15:31 | DS ---
DATE OF ADMISSION: 11/02/2016 DATE OF DISCHARGE: 11/07/2016 FINAL DIAGNOSES: 1. Acute on chronic congestive heart failure exacerbation from diastolic dysfunction, ejection fraction 55% to 60% with underlying hypertension. 2. Left heel decubitus ulcer, present on admission. 3. Chronic kidney stage III from nephrosclerosis. 4. Peripheral arterial disease, chronic. 5. Anemia of chronic kidney disease. 6. Moderate obesity, body mass index of 43.4. 7. Diabetes mellitus type 2, chronically on insulin. 8. Essential hypertension. 9. Hyperlipidemia. 10. Primary osteoarthritis of multiple joints. 11. Hypoxic respiratory failure, chronic on home oxygen. 12. Acute hypoxic respiratory on admission from congestive heart failure. 13. Hypertensive heart disease. 14. Dry gangrene of the right fourth toe and first toe from peripheral artery disease, present on admission. 15. Persistent atrial fibrillation, chronically on Coumadin. 16. Chronic medical debility from multiple problems. CONSULTATION: 1. Dr. Meredith from Pulmonary. 2. Dr. Mchugh from Cardiology. 3. Dr. Walls from Nephrology. HOSPITAL COURSE: This gentleman with a BMI of 43.9, presented with shortness of breath, felt to be in CHF, given IV Lasix to which he diuresed to well. Does have an element of sleep apnea, will need an outpatient study for that. In the meantime, to continue using his oxygen. Patient's BUN and creatinine were 70/1.7 at the time discharge, INR was 2.5 today. Care was discussed with the patient, especially to follow up at the Sleep Center with Dr. Meredith for sleep study. DISCHARGE MEDICATIONS: 1. Ventolin 2.5 q.i.d. 2. Lipitor 20 mg q.h.s. 3. Vitamin D3 one thousand units p.o. q.8 at noon. 4. Santyl topical q.h.s. application. 5. Iron 325 p.o. mixed with supper. 6. Neurontin 100 mg p.o. t.i.d. 7. Humalog 9 units a.c. t.i.d. with meals. 8. Lantus 35 units subQ q.h.s. 9. Lopressor 50 mg p.o. b.i.d. 10. Protonix 40 mg with breakfast. 11. Hydralazine 50 mg p.o. t.i.d. 12. Ventolin 2.5 q.4 p.r.n. 13. Melatonin 3 mg p.o. q.h.s. 14. Multivitamin 1 tablet p.o. daily. 15. Lasix 40 mg p.o. b.i.d. 16. Ativan 0.5 mg p.o. q.h.s. p.r.n. 17. Zaroxolyn 5 mg p.o. daily. 18. Coumadin 2.5 mg on Sunday, , Sunday, Sunday and 2.5 mg on Sunday, Sunday and Sunday. 19. Norvasc 5 mg a day. 20. Percocet 5 one tablet q.6 p.r.n. 21. Wound care to continue. 22. Oxygen 2 to [address] L[address] up with Dr. Fitzpatrick at the [facility]. Follow up with Dr. Walls in [address] Meredith in the Sleep Center. On exam, lungs diminished breath sounds. CARDIOVASCULAR: Heart sounds irregular. PSYCH: Alert and oriented x3. DC planning more than 35 minutes.
[2016-11-07 15:43] VITALS: BP 154/71; RESP 17; TEMP 97.6
[2016-11-07] MEDS: FERROUS SULFATE 325 MG TAB PO SCH (15:43)
[2016-11-07 16:27] VITALS: PULSE 88
[2016-11-07 17:17] LABS: Glucose,Whole Blood 191 mg/dL (75-99)
[2016-11-07] MEDS: WARFARIN 5 MG TAB PO SCH (17:26)
[2016-11-08] MEDS ORDERED: METOLAZONE 5 MG TAB PO SCH (09:00)
== END 2016-11-07 19:17 | DRG 291 ==
LOC: EC 13:23 → 6SEL 15:30
PROVIDERS: ADMIT Hospitalist; ATTEND Hospitalist
DX: I13.0 Hypertensive heart and chronic kidney disease with heart failure and stage 1 through stage 4 chronic kidney disease, or unspecified chronic kidney disease (principal); I50.33 Acute on chronic diastolic (congestive) heart failure; J96.21 Acute and chronic respiratory failure with hypoxia; N17.9 Acute kidney failure, unspecified; E87.0 Hyperosmolality and hypernatremia; E11.52 Type 2 diabetes mellitus with diabetic peripheral angiopathy with gangrene; I48.1 Persistent atrial fibrillation; Z68.41 Body mass index [BMI] 40.0-44.9, adult; E66.01 Morbid (severe) obesity due to excess calories; E11.22 Type 2 diabetes mellitus with diabetic chronic kidney disease; E11.621 Type 2 diabetes mellitus with foot ulcer; L89.629 Pressure ulcer of left heel, unspecified stage; E11.42 Type 2 diabetes mellitus with diabetic polyneuropathy; I27.2 Other secondary pulmonary hypertension; D63.1 Anemia in chronic kidney disease; N18.3 Chronic kidney disease, stage 3 (moderate); G47.33 Obstructive sleep apnea (adult) (pediatric); I73.9 Peripheral vascular disease, unspecified; E78.5 Hyperlipidemia, unspecified; E61.1 Iron deficiency; T50.2X5A Adverse effect of carbonic-anhydrase inhibitors, benzothiadiazides and other diuretics, initial encounter; M19.91 Primary osteoarthritis, unspecified site; Z99.81 Dependence on supplemental oxygen; Z92.3 Personal history of irradiation; Z85.46 Personal history of malignant neoplasm of prostate; Z98.42 Cataract extraction status, left eye; Z98.41 Cataract extraction status, right eye; Z87.891 Personal history of nicotine dependence; Z79.01 Long term (current) use of anticoagulants; Z83.3 Family history of diabetes mellitus; Z86.73 Personal history of transient ischemic attack (TIA), and cerebral infarction without residual deficits; Z79.4 Long term (current) use of insulin; Z79.899 Other long term (current) drug therapy
CPT/HCPCS: 36415; 71020; 80048; 80053; 81001; 82550; 82553; 82728; 83540; 83550; 83735; 83880; 84443; 84484; 85025; 85610; 85730; 93005; 94640; 94660; 94760; 96374; 99291

== ENCOUNTER 2016-11-16 07:40 | Emergency (ER) | payer MEDICARE ==
[2016-11-16 07:46] VITALS: RESP 18
[2016-11-16] MEDS ORDERED: OXYMETAZOLINE 0.05% NASL SPRAY 15 ML NASAL STA ×2 (08:10→08:11)
[2016-11-16 09:06] LABS: Anisocytosis Slight; Basophils % (A) 0 %; CH 27.1; CHCM 28.6; Eosinophils # (A) 0.2 k/uL (0-0.7); Eosinophils % (A) 2 %; HCT 26.7 % (39.0-53.0); HDW 2.98; HGB 7.8 gm/dL (13.0-17.5); Hypochromasia Marked; Luc % (Auto) 1; Lymphocytes # (A) 0.7 k/uL (1.0-4.8); Lymphocytes % (A) 8 %; MCH 27.8 pg (25.0-35.0); MCHC 29.2 g/dL (31.0-37.0); MCV 95.2 fL (80.0-100.0); Mean Platelet Volume 7.4; Monocytes # (A) 0.5 k/uL (0-1.0); Monocytes % (A) 5 %; Neutrophils # (A) 7.1 k/uL (1.3-7.7); Neutrophils % (A) 83 %; WBC 8.5 k/uL (3.8-10.6); WBC (Perox) 8.85
[2016-11-16 09:09] LABS: Calcium 8.7 mg/dL (8.4-10.2); Potassium 3.9 mmol/L (3.5-5.1)
[2016-11-16 09:14] LABS: INR 2.7 (<1.1); Prothrombin Time 25.6 sec (9.0-12.0)
--- NOTE | 2016-11-16 10:39 | ED ---
ENT HPI - General Chief complaint: ENT Stated complaint: nose bleed Time Seen by Provider: 11/16/16 07:58 Source: patient, RN notes reviewed, old records reviewed Mode of arrival: EMS - History of Present Illness Initial comments: He is active more toward the right now, presented with a nosebleed he is on chronic Coumadin and her last INR was 3.1 he denies any trauma to the nose no fall, it has been bleeding from the right side of the nose and he noticed some body in his throat as well, intermediate put a packing made with the tissue paper on the right side of the nose. He denies any headaches no migraines no chest pain or shortness of breath no abdominal abdominal pain no frequency urgency dysuria he does have a chronic degenerative disease and his creatinine and BUN has been elevated I reviewed his previous few visits and his creatinine and BUN has been elevated - Related Data Home Medications Medication Instructions Recorded Confirmed Multivitamins, Thera [Multivitamin] 1 tab PO DAILY 11/02/16 11/16/16 Artificial Tears-Hypromellose 1 drops BOTH EYES TID PRN 11/16/16 11/16/16 [Artificial Tear Drops] Bisacodyl [Dulcolax] 10 mg RECTAL DAILY PRN 11/16/16 11/16/16 Cholecalciferol [Vitamin D3] 1,000 unit PO DAILY@1200 11/16/16 11/16/16 Docusate [Colace] 100 mg PO DAILY 11/16/16 11/16/16 Ferrous Sulfate [Iron (65 MG 325 mg PO BID 11/16/16 11/16/16 Elemental)] Gabapentin [Neurontin] 100 mg PO Q8H 11/16/16 11/16/16 Ipratropium-Albuterol Nebulize 3 ml INHALATION RT-Q6H PRN 11/16/16 11/16/16 [Duoneb 0.5 mg-3 mg/3 ml Soln] LORazepam [Ativan] 0.5 mg PO DAILY PRN 11/16/16 11/16/16 LORazepam [Ativan] 0.5 mg PO HS 11/16/16 11/16/16 Magnesium Hydroxide [Milk of 2,400 mg PO DAILY PRN 11/16/16 11/16/16 Magnesia] Melatonin 3 mg PO HS 11/16/16 11/16/16 Na Phos,M-B/Na Phos,Di-Ba [Fleet 133 ml RECTAL DAILY PRN 11/16/16 11/16/16 Adult] Warfarin Sodium [Coumadin] 2.5 mg PO SUWESA 11/16/16 11/16/16 Warfarin [Coumadin] 5 mg PO MOTUTHFR 11/16/16 11/16/16 hydrALAZINE HCL [Apresoline] 50 mg PO Q8H 11/16/16 11/16/16 Previous Rx's Medication Instructions Recorded Atorvastatin [Lipitor] 20 mg PO HS tab 10/16/16 Collagenase [Santyl] 1 applic TOPICAL HS applic 10/16/16 INSULIN LISPRO (humaLOG) [humaLOG 9 unit SQ AC-TID vial 10/16/16 (formulary)] Insulin Glargine [Lantus] 35 unit SQ HS vial 10/16/16 Metoprolol Tartrate [Lopressor] 50 mg PO BID tab 10/16/16 Pantoprazole [Protonix] 40 mg PO AC-BRKFST tablet. 10/16/16 Furosemide [Lasix] 40 mg PO BID #1 tablet 11/07/16 Metolazone [Zaroxolyn] 5 mg PO DAILY tab 11/07/16 amLODIPine [Norvasc] 5 mg PO DAILY tab 11/07/16 oxyCODONE HCL/ACETAMINOPHEN 1 tab PO Q6HR PRN #20 tab 11/07/16 [Percocet 5-325 mg] Allergies Allergy/AdvReac Type Severity Reaction Status Date / Time Penicillins Allergy Rash/Hives Verified 11/16/16 07:46 Review of Systems ROS Statement: Those systems with pertinent positive or pertinent negative responses have been documented in the HPI. ROS Other: All systems not noted in ROS Statement are negative. Past Medical History Past Medical History: Cancer, Heart Failure, CVA/TIA, Diabetes Mellitus, Hyperlipidemia, Hypertension, Osteoarthritis (OA) Additional Past Medical History / Comment(s): CHF with diastolic dysfunction and ejection fraction of 55-60%, severe peripheral vascular disease, left heel decubitus ulcer, chronic renal failure with stage III kidney disease and hypertensive nephrosclerosis, peripheral vascular disease, chronic anemia, morbid obesity with a BMI of 43, diabetes mellitus type 2, hypertension, hyperlipidemia, osteoarthritis, chronic lower extremity edema, chronic lower extremity ulceration, chronic atrial fibrillation, hypertensive heart disease, chronic hypoxic respiratory failure, impaired performance and functional status secondary to above-mentioned comorbidities, prostate cancer treated by radiation therapy for a total of 5 weeks, dry gangrene involving the toes the first and the fourth on the right. History of Any Multi-Drug Resistant Organisms: None Reported Past Surgical History: Appendectomy, Back Surgery Additional Past Surgical History / Comment(s): Renal biopsy, bilateral cataract replacement Past Anesthesia/Blood Transfusion Reactions: No Reported Reaction Past Psychological History: No Psychological Hx Reported Additional Psychological History / Comment(s): PT AT [facility] w/c to get around. He is single. Remote history of tobacco use. No current alcohol use. 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 No other international travel no illnesses during his service. No animal exposures Smoking Status: Former smoker Past Alcohol Use History: None Reported Additional Past Alcohol Use History / Comment(s): 1975 quit in [place] same year Past Drug Use History: None Reported - Past Family History Mother Family Medical History: Diabetes Mellitus Father Family Medical History: Diabetes Mellitus General Exam - General Exam Comments Initial Comments: General: The patient is awake and alert, in no distress, and does not appear acutely ill. Skin: Skin is warm and dry and no rashes or lesions are noted. Eye: Pupils are equal, round and reactive to light, extra-ocular movements are intact; there is normal conjunctiva bilaterally. Ears, nose, mouth and throat: Right sided nose has a small packing made out of her tissue paper, it was removed noticed mild oozing from the area and the anterior, nasal packing was done Neck: The neck is supple, there is no tenderness Cardiovascular: There is a regular rate and rhythm. No murmur, rub or gallop is appreciated. Respiratory: To auscultation bilateral, no wheezing no rhonchi no distress respiratory de leon noticed Gastrointestinal: Soft, non-distended, non-tender abdomen without masses or organomegaly noted. There is no rebound or guarding present. Bowel sounds are unremarkable. Back: There is no tenderness to palpation in the midline. There is no obvious deformity. Musculoskeletal: Normal ROM, no tenderness, There is no pedal edema. There is no calf tenderness or swelling. No cords were appreciated. Neurological: CN II-XII intact, Cranial nerves III through XII are intact. There are no obvious motor or sensory deficits. Coordination appears grossly intact. Speech is normal. Psychiatric: Cooperative, appropriate mood & affect, normal judgment. Course Vital Signs 11/16/16 11/16/16 07:43 13:07 Temperature 96.9 F L 97.9 F Pulse Rate 84 76 Respiratory 18 18 Rate Blood Pressure 162/70 134/62 O2 Sat by Pulse 94 L 96 Oximetry Is in was reassessed multiple times he came in with epistaxis initial packing came out accidentally, second time, patient was cauterized in the right side of the nose he started bleeding after about 45 minutes then packing was done on the right side, he been symptom-free for about an hour he had been discharged him any follow-up with Dr. Singh nasal packing couyld came out in 48 hours Medical Decision Making - Lab Data Result diagrams: 11/16/16 08:30 11/16/16 08:30 Lab Results 11/16/16 11/16/16 11/16/16 Range/Units 08:30 08:30 08:30 WBC 8.5 (3.8-10.6) k/uL RBC 2.80 L (4.30-5.90) m/uL Hgb 7.8 L (13.0-17.5) gm/dL Hct 26.7 L (39.0-53.0) % MCV 95.2 (80.0-100.0) fL MCH 27.8 (25.0-35.0) pg MCHC 29.2 L (31.0-37.0) g/dL RDW 17.0 H (11.5-15.5) % Plt Count 307 (150-450) k/uL Neutrophils % 83 % Lymphocytes % 8 % Monocytes % 5 % Eosinophils % 2 % Basophils % 0 % Neutrophils # 7.1 (1.3-7.7) k/uL Lymphocytes # 0.7 L (1.0-4.8) k/uL Monocytes # 0.5 (0-1.0) k/uL Eosinophils # 0.2 (0-0.7) k/uL Basophils # 0.0 (0-0.2) k/uL Hypochromasia Marked Anisocytosis Slight PT 25.6 H (9.0-12.0) sec INR 2.7 (<1.1) Sodium 142 (137-145) mmol/L Potassium 3.9 (3.5-5.1) mmol/L Chloride 97 L (98-107) mmol/L Carbon Dioxide 31 H (22-30) mmol/L Anion Gap 14 mmol/L BUN 106 H* (9-20) mg/dL Creatinine 2.05 H (0.66-1.25) mg/dL Est GFR (MDRD) Af Amer 38 (>60 ml/min/1.73 sqM) Est GFR (MDRD) Non-Af 32 (>60 ml/min/1.73 sqM) Glucose 219 H (74-99) mg/dL Calcium 8.7 (8.4-10.2) mg/dL Disposition Clinical Impression: Epistaxis, Chronic anemia, Chronic renal failure, Elevated BUN Disposition: HOME SELF-CARE Condition: Fair Instructions: Nosebleed (ED) Referrals: Lance Fitzpatrick DO [Primary Care Provider] - 1-2 days Markie Singh MD [STAFF PHYSICIAN] - 1-2 days
[2016-11-16 13:08] VITALS: BP 134/62; PULSE 76; TEMP 97.9
== END 2016-11-16 13:53 | disposition home or self-care (01) ==
LOC: EC 07:40
DX: R04.0 Epistaxis (principal); D64.9 Anemia, unspecified; R79.89 Other specified abnormal findings of blood chemistry; E11.29 Type 2 diabetes mellitus with other diabetic kidney complication; I13.0 Hypertensive heart and chronic kidney disease with heart failure and stage 1 through stage 4 chronic kidney disease, or unspecified chronic kidney disease; I50.30 Unspecified diastolic (congestive) heart failure; N18.3 Chronic kidney disease, stage 3 (moderate); I48.2 Chronic atrial fibrillation; E78.5 Hyperlipidemia, unspecified; J96.11 Chronic respiratory failure with hypoxia; M19.90 Unspecified osteoarthritis, unspecified site; E66.01 Morbid (severe) obesity due to excess calories; Z68.41 Body mass index [BMI] 40.0-44.9, adult; Z85.46 Personal history of malignant neoplasm of prostate; Z86.73 Personal history of transient ischemic attack (TIA), and cerebral infarction without residual deficits; Z87.891 Personal history of nicotine dependence; Z79.01 Long term (current) use of anticoagulants; Z79.899 Other long term (current) drug therapy; Z88.0 Allergy status to penicillin
CPT/HCPCS: 30901; 36415; 80048; 85025; 85610; 99284